=== PATIENT | female | born 1940 | race Caucasian/White ===

== ENCOUNTER → 2017-06-28 | Outpatient (CLI) | payer MEDICARE ==
[2017-06-28 11:48] LABS: HCT 38.6 % (34.0-46.0); MCH 29.7 pg (25.0-35.0); MCHC 33.7 g/dL (31.0-37.0); Mean Platelet Volume 7.2; Platelet Count 268 k/uL (150-450); RBC 4.38 m/uL (3.80-5.40); RDW 13.2 % (11.5-15.5); WBC 6.5 k/uL (3.8-10.6)
[2017-06-28 11:57] LABS: Anion Gap 11 mmol/L; Blood Urea Nitrogen 16 mg/dL (7-17); Carbon Dioxide 29 mmol/L (22-30); Chloride 94 mmol/L (98-107); Glucose 100 mg/dL (74-99); Potassium 3.9 mmol/L (3.5-5.1); Sodium 134 mmol/L (137-145)
[2017-06-28 12:29] LABS: INR 1.1 (<1.2); Partial Thromboplastin Time 22.3 sec (22.0-30.0); Prothrombin Time 10.3 sec (9.0-12.0)
== END ==
LOC: LABWHC1 11:10
PROVIDERS: ATTEND Physician Assistant
DX: I65.23 Occlusion and stenosis of bilateral carotid arteries (principal)
CPT/HCPCS: 36415; 80048; 85027; 85610; 85730

== ENCOUNTER 2017-07-09 08:51 | Emergency (ER) | payer MEDICARE ==
[2017-07-09 09:23] LABS: Amorphous Sediment,Urine Occasional /hpf; Appearance,Urine Cloudy (Clear); Bacteria,Urine Rare /hpf; Bilirubin,Urine Negative (Negative); Blood,Urine Negative (Negative); Color,Urine Yellow; Glucose,Urine (UA) Negative (Negative); Hyaline Casts,Urine 3 /lpf (0-2); Ketones,Urine Negative (Negative); Leukocyte Esterase,Urine Large (Negative); Mucus,Urine Rare /hpf; Nitrite,Urine Negative (Negative); PH, Urine 6.5 (5.0-8.0); Protein,Urine 1+ (Negative); RBC,Urine 1 /hpf (0-5); Specific Gravity,Urine 1.017 (1.001-1.035); Squamous Epithelial Cell,Urine 17 /hpf (0-4); WBC,Urine 140 /hpf (0-5)
[2017-07-09] MEDS ORDERED: SODIUM CHLORIDE 0.9% 1,000 ML IV STA ×2 (09:32)
--- NOTE | 2017-07-09 09:34 | ED ---
Abdominal Pain HPI - General Chief Complaint: Abdominal Pain Stated Complaint: Flank pain Time Seen by Provider: 07/09/17 09:19 Source: patient, RN notes reviewed, old records reviewed Mode of arrival: ambulatory Limitations: no limitations - History of Present Illness Initial Comments: 77-year-old female presents to complain of right-sided flank pain 2 days ago. She states that she had a angiogram in [facility] by Dr. Enriquez last Saturday. She reports bruising to groin. When she called the vascular surgeons in [place], whom encouraged her to come to the emergency department for further evaluation lab testing and CT scan. Patient reports that she has noticed no blood in her urine. She states it has been slightly dark darker however. Denies any fever or chills. This time she states she has no pain, but it will occasionally flare up. Denies any nausea or vomiting, she reports normal bowel movements. - Related Data Home Medications Medication Instructions Recorded Confirmed Aspirin 325 mg PO DAILY 08/16/14 07/09/17 Hydrochlorothiazide [Hydrodiuril] 12.5 mg PO DAILY 08/16/14 07/09/17 Levothyroxine Sodium [Synthroid] 25 mcg PO DAILY 08/16/14 07/09/17 Metoprolol Tartrate [Lopressor] 25 mg PO BID 08/16/14 07/09/17 amLODIPine [Norvasc] 5 mg PO DAILY 08/16/14 07/09/17 Atorvastatin [Lipitor] 10 mg PO HS 07/09/17 07/09/17 Clopidogrel [Plavix] 75 mg PO DAILY 07/09/17 07/09/17 Allergies Allergy/AdvReac Type Severity Reaction Status Date / Time Environmental-mold,dustmites,pollen Allergy sinus Uncoded 07/09/17 09:02 symptoms Review of Systems ROS Statement: Those systems with pertinent positive or pertinent negative responses have been documented in the HPI. ROS Other: All systems not noted in ROS Statement are negative. Past Medical History Past Medical History: Hyperlipidemia, Hypertension, Thyroid Disorder Additional Past Medical History / Comment(s): CHOL.-DIET CONTROLLED History of Any Multi-Drug Resistant Organisms: None Reported Past Surgical History: Orthopedic Surgery Additional Past Surgical History / Comment(s): LT CAROTID ENDARTERECTOMY, LT SHOULDER SURGERY, LT ANKLE SURGERY WITH PLATE & SCREWS IN,COLONOSCOPY, ANGIOGRAM Past Anesthesia/Blood Transfusion Reactions: No Reported Reaction Past Psychological History: No Psychological Hx Reported Smoking Status: Former smoker Past Alcohol Use History: None Reported Past Drug Use History: None Reported - Past Family History Mother Family Medical History: No Reported History General Exam - General Exam Comments Initial Comments: This is a pleasant 77-year-old female. She is here with her son. Patient does not appear to be in any acute distress. Limitations: no limitations General appearance: alert, in no apparent distress Head exam: Present: atraumatic, normocephalic, normal inspection Eye exam: Present: normal appearance, PERRL, EOMI. Absent: scleral icterus, conjunctival injection, periorbital swelling ENT exam: Present: normal exam, mucous membranes moist Neck exam: Present: normal inspection. Absent: tenderness, meningismus, lymphadenopathy Respiratory exam: Present: normal lung sounds bilaterally. Absent: respiratory distress, wheezes, rales, rhonchi, stridor Cardiovascular Exam: Present: regular rate, normal rhythm, normal heart sounds. Absent: systolic murmur, diastolic murmur, rubs, gallop, clicks GI/Abdominal exam: Present: soft, normal bowel sounds, other (pubic hematoma extednign to RLQ. ). Absent: distended, tenderness, guarding, rebound, rigid Extremities exam: Present: normal inspection, full ROM, normal capillary refill. Absent: tenderness, pedal edema, joint swelling, calf tenderness Back exam: Present: normal inspection, CVA tenderness (R) Neurological exam: Present: alert, oriented X3, CN II-XII intact Psychiatric exam: Present: normal affect, normal mood Skin exam: Present: warm, dry, intact, normal color. Absent: rash Course Vital Signs 07/09/17 07/09/17 07/09/17 09:00 10:57 13:02 Temperature 98.7 F Pulse Rate 82 79 78 Respiratory 18 18 18 Rate Blood Pressure 133/58 125/58 135/62 O2 Sat by Pulse 96 99 95 Oximetry - Reevaluation(s) Reevaluation #1: 07/09/17 12:[address] Isbell on-call mass with surgeon. He recommends transferred to [facility] and platelet patient had her recent angiogram completed. Reevaluation #2: 07/09/17 12:42 At this time I spoke to Dr. Ankit Duncan clinically. He is talked to patient' s vascular surgeon to accept transfer. Reevaluation #3: 07/09/17 13:30 I did discuss this with Dr. Murillo the on-call vascular surgeon. She accepts the transfer. She did relate that Dr. Day did not perform the angiogram. A massive and another physician from their group. I discussed this with the patient and she reports that Dr. Ellison did do the surgery. I then discussed this with Dr. Ankit Warner from [facility] ER. He will accept the transfer. Medical Decision Making - Medical Decision Making This patient is a 7-year-old female with a recent angiogram last Saturday presents with right flank pain. Patient reports the symptoms started 2 days ago. The pain seems to be intermittent. Patient has no fever or chills. Patient is given IV fluids and lab work obtained. She does have a significant hematoma over the right groin region. She does have some right CVA tenderness as well. Patient urinalysis is positive for infection with over 100 white blood cells. Many bacteria. We will do urine culture. She was given Rocephin in the emergency department. I did complete a CT abdomen and pelvis. Initially concerned for pyelonephritis and there was an abnormal finding of the right groin hematoma and right pelvic retroperitoneal spread of the hematoma related to the recent angiogram. Discussed this with Dr. Maldonado. Recommends transfer. We also discussed this Dr. Isbell and he would like her transferred to her original facility. I discussed with Dr. Warner and Dr. Murillo from [facility]. They will accept the transfer. Patient will be admitted to medical floor vascular consult. - Lab Data Result diagrams: 07/09/17 09:18 07/09/17 09:18 Lab Results 07/09/17 07/09/17 07/09/17 Range/Units 09:07 09:18 09:18 WBC 7.5 (3.8-10.6) k/uL RBC 3.87 (3.80-5.40) m/uL Hgb 11.8 (11.4-16.0) gm/dL Hct 33.6 L (34.0-46.0) % MCV 86.6 (80.0-100.0) fL MCH 30.4 (25.0-35.0) pg MCHC 35.1 (31.0-37.0) g/dL RDW 13.5 (11.5-15.5) % Plt Count 321 (150-450) k/uL Neutrophils % 72 % Lymphocytes % 13 % Monocytes % 12 % Eosinophils % 1 % Basophils % 0 % Neutrophils # 5.4 (1.3-7.7) k/uL Lymphocytes # 1.0 (1.0-4.8) k/uL Monocytes # 0.9 (0-1.0) k/uL Eosinophils # 0.1 (0-0.7) k/uL Basophils # 0.0 (0-0.2) k/uL Sodium 133 L (137-145) mmol/L Potassium 3.4 L (3.5-5.1) mmol/L Chloride 91 L (98-107) mmol/L Carbon Dioxide 30 (22-30) mmol/L Anion Gap 12 mmol/L BUN 7 (7-17) mg/dL Creatinine 0.49 L (0.52-1.04) mg/dL Est GFR (CKD-EPI)AfAm >90 (>60 ml/min/1.73 sqM) Est GFR (CKD-EPI)NonAf >90 (>60 ml/min/1.73 sqM) Glucose 120 H (74-99) mg/dL Calcium 10.1 (8.4-10.2) mg/dL Total Bilirubin 2.0 H (0.2-1.3) mg/dL AST 28 (14-36) U/L ALT 22 (9-52) U/L Alkaline Phosphatase 69 (38-126) U/L Total Protein 7.0 (6.3-8.2) g/dL Albumin 4.5 (3.5-5.0) g/dL Amylase 93 (30-110) U/L Lipase 97 (23-300) U/L Urine Color Yellow Urine Appearance Cloudy H (Clear) Urine pH 6.5 (5.0-8.0) Ur Specific Mccool 1.017 (1.001-1.035) Urine Protein 1+ H (Negative) Urine Glucose (UA) Negative (Negative) Urine Ketones Negative (Negative) Urine Blood Negative (Negative) Urine Nitrite Negative (Negative) Urine Bilirubin Negative (Negative) Urine Urobilinogen 3.0 (<2.0) mg/dL Ur Leukocyte Esterase Large H (Negative) Urine RBC 1 (0-5) /hpf Urine WBC 140 H (0-5) /hpf Ur Squamous Epith Cells 17 H (0-4) /hpf Amorphous Sediment Occasional H (None) /hpf Urine Bacteria Rare H (None) /hpf Hyaline Casts 3 H (0-2) /lpf Urine Mucus Rare H (None) /hpf - Radiology Data Radiology results: report reviewed CT shows right groin hematoma and right pelvic retroperitoneal spread of the hematoma presumed related to recent angiogram with a right groin access one week ago. No renal stones or hydronephrosis present bilaterally. Disposition Clinical Impression: UTI (urinary tract infection), History of femoral angiogram, Retroperitoneal hematoma Disposition: DC/TRNS INTERMEDIATE CARE FAC Referrals: Srinivas Villalta DO [Primary Care Provider] - 1-2 days Time of Disposition: 13:34 - Out of Hospital Transfer - Req. Specs Out of Hospital Transfer - Requested Specifics: Other Emergency Center ([facility])
[2017-07-09 09:53] LABS: Basophils % (A) 0 %; Eosinophils # (A) 0.1 k/uL (0-0.7); Eosinophils % (A) 1 %; HCT 33.6 % (34.0-46.0); HGB 11.8 gm/dL (11.4-16.0); Lymphocytes % (A) 13 %; MCH 30.4 pg (25.0-35.0); MCHC 35.1 g/dL (31.0-37.0); MCV 86.6 fL (80.0-100.0); Mean Platelet Volume 7.5; Monocytes # (A) 0.9 k/uL (0-1.0); Monocytes % (A) 12 %; Neutrophils # (A) 5.4 k/uL (1.3-7.7); Neutrophils % (A) 72 %; Platelet Count 321 k/uL (150-450); RBC 3.87 m/uL (3.80-5.40); RDW 13.5 % (11.5-15.5); WBC 7.5 k/uL (3.8-10.6)
--- NOTE | 2017-07-09 09:56 | XR ---
EXAMINATION TYPE: XR KUB DATE OF EXAM: 07/09/2017 9:52 AM CLINICAL HISTORY: Right upper quadrant and back pain TECHNIQUE: Single supine KUB image of the abdomen is obtained. COMPARISON: None. FINDINGS: Moderate multilevel degenerative changes of the visualized thoracolumbar spine are seen wit h mild to moderate degenerative changes of the femoral acetabular joints. Scattered gas is seen in no n-distended small bowel loops. Gas and fecal material is seen in non-distended colon. Dystrophic ossi fication within the left hemipelvis likely relates to a calcified uterine fibroid. No evidence of pne umoperitoneum. The lung bases are clear. Right common iliac vascular stent and extensive calcific ath eromatous changes of the femoral arteries are essentially noted. 2 punctate (1 to 2 mm) right and a s patrick punctate left calcific densities are seen overlying the renal shadows. IMPRESSION: 1. Nonobstructive bowel gas pattern. 2. Punctate faint calcific densities overlying the renal shadows likely representing nephrolithiasis.
[2017-07-09 10:09] LABS: ALT 22 U/L (9-52); AST 28 U/L (14-36); Albumin 4.5 g/dL (3.5-5.0); Alkaline Phosphatase 69 U/L (38-126); Amylase 93 U/L (30-110); Anion Gap 12 mmol/L; Blood Urea Nitrogen 7 mg/dL (7-17); Calcium 10.1 mg/dL (8.4-10.2); Carbon Dioxide 30 mmol/L (22-30); Chloride 91 mmol/L (98-107); Glucose 120 mg/dL (74-99); Lipase 97 U/L (23-300); Potassium 3.4 mmol/L (3.5-5.1); Sodium 133 mmol/L (137-145)
[2017-07-09] MEDS ORDERED: cefTRIAXone IN SWFI 1,000 MG/10 ML SYRINGE IVP STA (10:42)
[2017-07-09] MEDS ORDERED: RX INFO: IV CONTRAST WAS GIVEN 1 EACH MISC MISCELLANE PRN (10:57)
--- NOTE | 2017-07-09 12:08 | CT ---
EXAMINATION TYPE: CT abdomen pelvis w con DATE OF EXAM: 07/09/2017 HISTORY: Right sided flank pain. Post Angio study [address] DLP: 364.7mGycm Automated Exposure Control for Dose Reduction was Utilized. CONTRAST: CT scan of the abdomen and pelvis is performed without oral and with IV Contrast, patient injected wi th 100 mL of Omnipaque 300. COMPARISON: None. FINDINGS: LUNG BASES: Central linear scar and/or atelectasis in both bases. Moderate calcification at level of mitral valve leaflets is present. LIVER/GB: No significant abnormality is appreciated. PANCREAS: No significant abnormality is seen. SPLEEN: Numerous calcifications throughout the spleen are present product of old granulomatous diseas e. ADRENALS: No significant abnormality is seen. KIDNEYS: Symmetric cortical medullary uptake and excretion is seen without concerning renal mass or h ydronephrosis. There are extrarenal pelvises bilaterally. BOWEL: Evaluation of bowel is suboptimal secondary to lack of enteric contrast. There is no suspiciou s small or large bowel dilatation. There are diverticula throughout the colon most prominent at level of sigmoid colon. There is no convincing CT evidence for acute diverticulitis. UTERUS/ADNEXA: There is heterogeneous lobulated calcified uterus suggesting underlying fibroids. LYMPH NODES: No greater than 1cm abdominal or pelvic lymph nodes are appreciated. OSSEOUS STRUCTURES: There is moderate to severe disc space narrowing and spurring L2-L3, L4-L5, and L 5-S1 levels. Moderate joint space loss in both hips is present. Other: There is moderate to severe atherosclerotic change of aorta extending into iliac branch vessel s. There is ill-defined fluid or hematoma right groin region seen best axial image 61 with intrapelvic e xtension noted along anterolateral aspect of the right external iliac artery causing slight medial di splacement of adjacent cecum consistent with retroperitoneal splenic broad of hematoma presumed relat ed to recent angiogram. IMPRESSION: There is right groin hematoma and right pelvic retroperitoneal spread of hematoma presume d related to recent angiogram with right groin access one week ago. No renal stones or hydronephrosis is present bilaterally
[2017-07-09 14:05] VITALS: PULSE 86; RESP 15; TEMP 98.5
[2017-07-09 14:19] VITALS: BP 142/75
== END 2017-07-09 14:20 ==
LOC: EC 08:51
DX: N39.0 Urinary tract infection, site not specified (principal); K66.1 Hemoperitoneum; E78.5 Hyperlipidemia, unspecified; I10 Essential (primary) hypertension; E07.9 Disorder of thyroid, unspecified; Z87.891 Personal history of nicotine dependence; Z79.82 Long term (current) use of aspirin; Z79.02 Long term (current) use of antithrombotics/antiplatelets; Z79.899 Other long term (current) drug therapy; Z91.048 Other nonmedicinal substance allergy status
CPT/HCPCS: 36415; 80053; 82150; 83690; 85025; 81001; 87086; 74018; 74177; 99285; 96374; 96361 ×4; J0696; Q9967

== ENCOUNTER → 2017-08-05 | Outpatient (CLI) | payer MEDICARE ==
[2017-08-05 12:43] LABS: HCT 37.1 % (34.0-46.0); HGB 13.2 gm/dL (11.4-16.0); MCHC 35.6 g/dL (31.0-37.0); MCV 87.1 fL (80.0-100.0); Mean Platelet Volume 6.6; Platelet Count 251 k/uL (150-450); RBC 4.26 m/uL (3.80-5.40); RDW 13.6 % (11.5-15.5); WBC 5.2 k/uL (3.8-10.6)
--- NOTE | 2017-08-05 12:50 | XR ---
EXAMINATION TYPE: XR chest 2V DATE OF EXAM: 08/05/2017 COMPARISON: None HISTORY: 77-year-old female preoperative evaluation TECHNIQUE: Frontal and lateral views FINDINGS: Heart is of normal in size. Mild diffuse interstitial prominence and hyperinflation. Some strandy ate lectasis or scarring in the lower lungs. No consolidation or pleural effusion. Partially visualized l eft total shoulder arthroplasty. Chronic healed right-sided rib fracture deformities. IMPRESSION: COPD and chronic appearing parenchymal changes. No acute process seen.
[2017-08-05 12:51] LABS: ALT 25 U/L (9-52); AST 30 U/L (14-36); Albumin 4.7 g/dL (3.5-5.0); Alkaline Phosphatase 86 U/L (38-126); Anion Gap 14 mmol/L; Blood Urea Nitrogen 10 mg/dL (7-17); Calcium 10.3 mg/dL (8.4-10.2); Carbon Dioxide 27 mmol/L (22-30); Chloride 96 mmol/L (98-107); Glucose 105 mg/dL (74-99); Potassium 3.6 mmol/L (3.5-5.1); Sodium 137 mmol/L (137-145); Total Bilirubin 1.1 mg/dL (0.2-1.3); Total Protein 7.4 g/dL (6.3-8.2)
[2017-08-05 12:52] LABS: Partial Thromboplastin Time 22.1 sec (22.0-30.0); Prothrombin Time 10.2 sec (9.0-12.0)
[2017-08-05 13:06] LABS: Appearance,Urine Clear (Clear); Bilirubin,Urine Negative (Negative); Blood,Urine Negative (Negative); Color,Urine Light Yellow; Glucose,Urine (UA) Negative (Negative); Ketones,Urine Negative (Negative); Leukocyte Esterase,Urine Negative (Negative); Nitrite,Urine Negative (Negative); Protein,Urine Negative (Negative); Specific Gravity,Urine 1.005 (1.001-1.035); Urobilinogen,Urine <2.0 mg/dL (<2.0)
[2017-08-05 16:17] LABS: Eosinophils # (M) 0.21 k/uL (0-0.7); Lymphocytes # (M) 1.46 k/uL (1.0-4.8); Monocytes # (M) 0.31 k/uL (0-1.0); Neutrophils # (M) 3.22 k/uL (1.3-7.7); Neutrophils % (M) 62 %; Nucleated Red Blood Cells 0 /100 WBC (0-0); Total Cells Counted 100
== END | disposition home or self-care (01) ==
LOC: LABWHC1 12:12
PROVIDERS: ATTEND Surgery Vascular Surgery
DX: Z01.818 Encounter for other preprocedural examination (principal); I65.23 Occlusion and stenosis of bilateral carotid arteries; J44.9 Chronic obstructive pulmonary disease, unspecified; Z79.01 Long term (current) use of anticoagulants; Z01.812 Encounter for preprocedural laboratory examination
CPT/HCPCS: 36415; 71046; 80053; 81003; 85027; 85610; 85730; 87086

== ENCOUNTER → 2019-09-16 | Outpatient (CLI) | payer MEDICARE | END | disposition home or self-care (01) | LOC: LABWHC1 08:02 | PROVIDERS: ATTEND Otolaryngology | DX: J30.89 Other allergic rhinitis (principal) | CPT/HCPCS: 36415 ==

== ENCOUNTER → 2019-10-21 | Outpatient (CLI) | payer MEDICARE ==
--- NOTE | 2019-10-21 15:44 | ECHOF ---
Referral Reason:R07.89 Atypical Chest pain MEASUREMENTS -------- HEIGHT: 149.9 cm WEIGHT: 43.5 kg BP: IVSd: 1.4 cm (0.6 - 1.1) LVIDd: 3.2 cm (3.9 - 5.3) LVPWd: 1.2 cm (0.6 - 1.1) IVSs: 1.6 cm LVIDs: 2.1 cm LVPWs: 1.5 cm LAESV Index (A-L): 48.12 ml/m Ao Diam: 2.6 cm (2.0 - 3.7) AV Cusp: 1.2 cm (1.5 - 2.6) MV EXCURSION: 10.595 mm (> 18.000) MV EF SLOPE: 56 mm/s (70 - 150) EPSS: 0.4 cm MV E Raheem: 0.97 m/s MV DecT: 331 ms MV A Raheem: 1.03 m/s MV E/A Ratio: 0.94 RAP: 5.00 mmHg RVSP: 33.87 mmHg FINDINGS -------- Sinus rhythm. This was a technically adequate study. The left ventricular size is normal. There is moderate concentric left ventricular hypertrophy. O verall left ventricular systolic function is normal with, an EF between 55 - 60 %. Left ventricular fillimg pressure cannot be estimated due to severe mitral annular calcification. The right ventricle is normal in size. LA is severely dilated >40 ml/m2 The right atrial size is normal. Interatrial and interventricular septum intact. The aortic valve is trileaflet and appears structurally normal. There is mild to moderate aortic va lve sclerosis. There is no evidence of aortic regurgitation. There is no evidence of aortic steno sis. Severe mitral annular calcification present. Moderate mitral regurgitation is present. Mild tricuspid regurgitation present. There is borderline pulmonary artery hypertension. The righ t ventricular systolic pressure, as measured by Doppler, is 33.87mmHg. There is no pulmonic regurgitation present. The aortic root size is normal. Normal inferior vena cava with normal inspiratory collapse consistent with estimated right atrial pre ssure of 5 mmHg. There is no pericardial effusion. CONCLUSIONS -------- 1. Sinus rhythm. 2. This was a technically adequate study. 3. The left ventricular size is normal. 4. There is moderate concentric left ventricular hypertrophy. 5. Overall left ventricular systolic function is normal with, an EF between 55 - 60 %. 6. Left ventricular fillimg pressure cannot be estimated due to severe mitral annular calcification. 7. The right ventricle is normal in size. 8. LA is severely dilated >40 ml/m2 9. The right atrial size is normal. 10. Interatrial and interventricular septum intact. 11. The aortic valve is trileaflet and appears structurally normal. 12. There is mild to moderate aortic valve sclerosis. 13. There is no evidence of aortic regurgitation. 14. There is no evidence of aortic stenosis. 15. Severe mitral annular calcification present. 16. Moderate mitral regurgitation is present. 17. Mild tricuspid regurgitation present. 18. There is borderline pulmonary artery hypertension. 19. The right ventricular systolic pressure, as measured by Doppler, is 33.87mmHg. 20. There is no pulmonic regurgitation present. 21. The aortic root size is normal. 22. Normal inferior vena cava with normal inspiratory collapse consistent with estimated right atrial pressure of 5 mmHg. 23. There is no pericardial effusion. SUPERVISOR IN CHARGE: Cat Martinez RDCS
== END | disposition home or self-care (01) ==
LOC: RADECHMAIN 11:19
PROVIDERS: ATTEND Family Medicine
DX: I08.1 Rheumatic disorders of both mitral and tricuspid valves (principal); I27.21 Secondary pulmonary arterial hypertension
CPT/HCPCS: 93306

== ENCOUNTER 2019-12-03 09:13 | Day surgery (SDC) | payer MEDICARE ==
[~2019-12-03 09:13] MED LIST: LACTATED RINGERS 1,000 ML IV SCH; ONDANSETRON 4 MG/2 ML VIAL IVP PRN
[2019-12-03 09:32] VITALS: TEMP 97.2
[2019-12-03] MEDS ORDERED: LIDOCAINE 1% (10MG/ML) FOR IV START INTRADERMA ONE (09:34)
[2019-12-03] MEDS ORDERED: PROPOFOL 10 MG/ML 20 ML VIAL IV ONE (10:26)
--- NOTE | 2019-12-03 11:09 | P.PCN ---
Date of Procedure: 12/03/19 Description of Procedure: BRIEF HISTORY: Patient is a 79-year-old female presenting for outpatient colonoscopy for evaluation of change in bowel habits. Patient reports new onset constipation. She denied any weight loss. Bowel movements would be every 2-3 days without MiraLAX. PROCEDURE PERFORMED: Colonoscopy. PREOPERATIVE DIAGNOSIS: change in bowel habits, last colonoscopy 7 years ago significant for polypectomy. ESTIMATED BLOOD LOSS: Minimal. IV sedation per Anesthesia. PROCEDURE: After informed consent was obtained, the patient, was brought into the endoscopy unit. IV sedation was administered by Anesthesia under continuous monitoring. Digital rectal examination was normal. Initially the Olympus CF-190 flexible video colonoscope was then inserted in the rectum, gradually advanced into the cecum without any difficulty. Careful examination was performed as the scope was gradually being withdrawn. Ileocecal valve and the appendiceal orifice were visualized and appeared normal. Prep was excellent. Mucosa of the cecum, ascending colon, transverse colon, descending colon, sigmoid colon, and rectum appeared normal. multiple small and large mouth diverticula noted throughout the colon. Retroflexion was performed in the rectum and no lesions were seen, low- grade internal hemorrhoids. The patient tolerated the procedure well. IMPRESSION: Moderate pandiverticulosis. Otherwise, normal-appearing colon from rectum to cecum . RECOMMENDATIONS: Findings of this examination were discussed with the patient in her family. Okay to resume diet. Okay to resume medications. Continue fiber supplementation. Follow-up in gastroenterology clinic as scheduled.
[2019-12-03 11:12] VITALS: RESP 16
[2019-12-03 11:31] VITALS: BP 138/74; PULSE 62
== END 2019-12-03 11:48 | disposition home or self-care (01) ==
LOC: ORWHC2ENDO 09:13
PROVIDERS: ATTEND Internal Medicine
DX: K57.30 Diverticulosis of large intestine without perforation or abscess without bleeding (principal); I10 Essential (primary) hypertension; E78.5 Hyperlipidemia, unspecified; K21.9 Gastro-esophageal reflux disease without esophagitis; Z91.09 Other allergy status, other than to drugs and biological substances; Z79.82 Long term (current) use of aspirin; Z79.890 Hormone replacement therapy; Z79.899 Other long term (current) drug therapy; Z98.890 Other specified postprocedural states; Z87.891 Personal history of nicotine dependence
CPT/HCPCS: 45378; J2704

== ENCOUNTER → 2019-12-31 | Day surgery (SDC) | payer MEDICARE ==
[2019-12-30 09:04] VITALS: BMI 19.1
[~2019-12-31] MED LIST changes: +LIDOCAINE 1% (10MG/ML) FOR IV START INTRADERMA ONE; +LIDOCAINE 1% INJ 10MG/ML (20 ML MDV) ONE; -ONDANSETRON 4 MG/2 ML VIAL IVP PRN; +PROPOFOL 10 MG/ML 20 ML VIAL IV ONE
[2019-12-31 10:10] VITALS: TEMP 97.7
--- NOTE | 2019-12-31 11:24 | P.PCN ---
Date of Procedure: 12/31/19 Description of Procedure: BRIEF HISTORY: Patient is a 79-year-old female presenting for outpatient EGD for evaluation of epigastric pain. Patient had reported persistent epigastric abdominal pain as well as bloating with associated altered bowel function. She did undergo colonoscopy for evaluation. PROCEDURE PERFORMED: Esophagogastroduodenoscopy with biopsy. PREOPERATIVE DIAGNOSIS: Epigastric abdominal pain. ESTIMATED BLOOD LOSS: Minimal. IV sedation per anesthesia. PROCEDURE: After informed consent was obtained, the patient was brought into the endoscopy unit. IV sedation was administered by Anesthesia under continuous monitoring. Initially the Olympus GIF-190 video endoscope was inserted into the mouth. Esophagus intubated without any difficulty. It was gradually advanced into the stomach and duodenum and carefully examined. The bulb and the second part of the duodenum appeared normal, with biopsies taken. The scope at this time was withdrawn to the stomach, adequately insufflated with air, and upon careful examination, mucosa of the antrum, body, cardia and the fundus appeared normal, except for some mild scattered erythema in the antrum and body suggestive of mild gastritis with biopsies taken. The scope was then withdrawn into the esophagus. The GE junction was located at 37 cm from the incisors, with a 3 cm hiatal hernia noted. Biopsies of the GE junction taken. The esophagus appeared normal. There were no erosions or ulcerations seen and the patient tolerated the procedure well. IMPRESSION: 1. Mild gastritis. 2. 3 cm hiatal hernia. 3. Biopsies of the duodenum, antrum body and GE junction. RECOMMENDATIONS: The findings of this examination were discussed with the patient and her daughter. Okay to resume diet. Okay to resume medications. Continue PPI therapy. Follow up in GI clinic as previously scheduled.
[2019-12-31 12:10] VITALS: BP 137/78; PULSE 69; RESP 20
== END ==
LOC: ORWHC2ENDO 09:37
PROVIDERS: ATTEND Internal Medicine
DX: K29.50 Unspecified chronic gastritis without bleeding (principal); K31.89 Other diseases of stomach and duodenum; K22.8 Other specified diseases of esophagus; K44.9 Diaphragmatic hernia without obstruction or gangrene; I10 Essential (primary) hypertension; E78.5 Hyperlipidemia, unspecified; E07.9 Disorder of thyroid, unspecified; K21.9 Gastro-esophageal reflux disease without esophagitis; Z87.891 Personal history of nicotine dependence; Z91.09 Other allergy status, other than to drugs and biological substances; Z79.899 Other long term (current) drug therapy; Z79.890 Hormone replacement therapy; Z79.82 Long term (current) use of aspirin; Z98.890 Other specified postprocedural states
CPT/HCPCS: 88305; 43239; J2001; J2704

== ENCOUNTER → 2020-03-31 | Outpatient (CLI) | payer MEDICARE | END | disposition home or self-care (01) | LOC: LABWHC1 10:18 | PROVIDERS: ATTEND Surgery | DX: Z20.828 Contact with and (suspected) exposure to other viral communicable diseases (principal) | CPT/HCPCS: U0003; C9803 ==

== ENCOUNTER 2020-04-07 06:12 | Day surgery (SDC) | payer MEDICARE ==
[2020-04-05 09:56] VITALS: BMI 18.8
[~2020-04-07 06:12] MED LIST changes: +DEXAMETHASONE SOD PHOSPHATE 4 MG/ML 1 ML VIAL IV ONE; +HEPARIN SODIUM,PORCINE 5,000 UNIT/ML 1 ML VIAL SQ PRN; -LIDOCAINE 1% (10MG/ML) FOR IV START INTRADERMA ONE; +LIDOCAINE 1% (10MG/ML) FOR IV START INTRADERMA PRN; -LIDOCAINE 1% INJ 10MG/ML (20 ML MDV) ONE; +MIDAZOLAM 2 MG/2 ML VIAL IV PRN; +ONDANSETRON 4 MG/2 ML VIAL IVP ONE; -PROPOFOL 10 MG/ML 20 ML VIAL IV ONE
[2020-04-07 07:18] LABS: Basophils % (A) 0 %; Eosinophils # (A) 0.2 k/uL (0-0.7); Eosinophils % (A) 2 %; HCT 37.6 % (34.0-46.0); HGB 12.7 gm/dL (11.4-16.0); Lymphocytes # (A) 0.9 k/uL (1.0-4.8); Lymphocytes % (A) 9 %; MCH 29.8 pg (25.0-35.0); MCHC 33.8 g/dL (31.0-37.0); MCV 88.2 fL (80.0-100.0); Mean Platelet Volume 6.8; Monocytes # (A) 0.6 k/uL (0-1.0); Monocytes % (A) 6 %; Neutrophils # (A) 8.1 k/uL (1.3-7.7); Neutrophils % (A) 82 %; Platelet Count 292 k/uL (150-450); RBC 4.27 m/uL (3.80-5.40); RDW 13.7 % (11.5-15.5); WBC 9.9 k/uL (3.8-10.6)
[2020-04-07 07:28] LABS: Potassium 3.7 mmol/L (3.5-5.1)
[2020-04-07] MEDS ORDERED: ROCURONIUM 10 MG/ML (10 ML VIAL) IV ONE (07:30)
[2020-04-07] MEDS ORDERED: LIDOCAINE 1% INJ 10MG/ML (20 ML MDV) ONE (07:30)
[2020-04-07] MEDS ORDERED: PHENYLEPHRINE 10 MG/ML VIAL ONE (07:30)
[2020-04-07] MEDS ORDERED: GLYCOPYRROLATE 0.2 MG/ML 2 ML VIAL ONE (07:30)
[2020-04-07] MEDS ORDERED: SUCCINYLCHOLINE CHLORIDE 100 MG/5 ML SYR IV ONE (07:30)
[2020-04-07] MEDS ORDERED: NEOSTIGMINE 1 MG/ML 10 ML VIAL ONE (07:30)
[2020-04-07] MEDS ORDERED: fentaNYL (PF) 50 MCG/ML 2 ML AMP ONE (07:30)
[2020-04-07] MEDS ORDERED: PROPOFOL 10 MG/ML 20 ML VIAL IV ONE (07:30)
[2020-04-07] MEDS ORDERED: MIDAZOLAM 2 MG/2 ML VIAL ONE (07:30)
[2020-04-07] MEDS ORDERED: BUPIVACAIN-EPI 0.5%-1:200,000 30 ML VIAL SQ ONE ×2 (07:48)
--- NOTE | 2020-04-07 08:34 | P.OP ---
Date of Procedure: 04/07/20 Preoperative Diagnosis: Symptomatic cholelithiasis Postoperative Diagnosis: Symptomatic cholelithiasis Procedure(s) Performed: Robotic cholecystectomy Anesthesia: SHERYL Surgeon: Kya Andrews Pathology: other (Gallbladder and contents) Condition: stable Disposition: same day Indications for Procedure: 79-year-old female presented to the surgical clinic with complaints of epigastric and right upper quadrant pain. On workup, she was found to have gallbladder sludge and small stones. Plan was for robotic cholecystectomy. The patient was excellent the risks, benefits and alternatives to the procedure did provide consent prior to attending the operating suite. Operative Findings: Distended gallbladder, cholelithiasis Description of Procedure: The patient was brought to the operating suite and placed in supine position on the operating table. Sedation was provided by anesthesia and the patient underwent endotracheal intubation. The patient was then prepped and draped in regular sterile fashion. An infraumbilical incision was made and dissection was carried to the fascia. The fascia was incised and an 8 mm trocar was placed. Pneumoperitoneum was achieved. 3 additional 8 mm ports were placed. One was placed in the left lower quadrant and 2 were placed in the right lower quadrant. The patient was then positioned appropriately and the robot was docked. Prior to induction of anesthesia, the patient did have ICG injected. The gallbladder was then grasped and elevated superiorly and the infundibulum was grasped and retracted laterally. ICG view was then used and the anatomy was clearly delineated with the cystic duct and cystic artery clearly visualized. At this point, the cystic duct and cystic artery were skeletonized. 2 clips were placed proximally and the cystic duct one was placed distally and the cystic duct was ligated. 2 clips were placed proximally on the cystic artery one was placed distally and the cystic artery was ligated. At this point cautery was used to dissect the gallbladder from the gallbladder fossa. Hemostasis was maintained during this process. At this point, the robot was undocked and the gallbladder was placed in an Endo Catch bag laparoscopically. The gallbladder was then removed from the abdomen. Hemostasis was continued to be maintained. Irrigation was used in the right upper quadrant and suctioned. The infraumbilical incision site was then closed under direct visualization using an 0 Vicryl suture and Jose-Dakota device. Pneumoperitoneum was then released all ports removed from the abdomen. All skin incisions were closed with 4-0 Vicryl subcuticular suture. The patient was awakened in the operating suite and taken to postanesthesia care unit in stable condition.
[2020-04-07 08:44] VITALS: TEMP 97.6
[2020-04-07 08:47] VITALS: RESP 16
[2020-04-07] MEDS: HYDROmorphone 0.5 MG/0.5 ML SYRINGE IVP PRN ×2 (08:47→09:04)
[2020-04-07] MEDS ORDERED: LACTATED RINGERS 1,000 ML IV ONE ×2 (09:00)
[2020-04-07 09:57] VITALS: BP 112/69
[2020-04-07 10:20] VITALS: PULSE 75
== END 2020-04-07 10:57 | disposition home or self-care (01) ==
LOC: OR 06:12
PROVIDERS: ATTEND Surgery
DX: K80.10 Calculus of gallbladder with chronic cholecystitis without obstruction (principal); I10 Essential (primary) hypertension; E78.5 Hyperlipidemia, unspecified; K21.9 Gastro-esophageal reflux disease without esophagitis; E07.9 Disorder of thyroid, unspecified; Z91.048 Other nonmedicinal substance allergy status; Z79.82 Long term (current) use of aspirin; Z79.890 Hormone replacement therapy; Z79.899 Other long term (current) drug therapy; I25.10 Atherosclerotic heart disease of native coronary artery without angina pectoris; Z82.49 Family history of ischemic heart disease and other diseases of the circulatory system; Z80.3 Family history of malignant neoplasm of breast
CPT/HCPCS: 88304; 80051; 85025; 47563; J2250; J1644; J1100; J2370; J2710; J0690; J2405; J2001; J3010; J0330; J2704; J1170

== ENCOUNTER 2022-03-24 11:23 | Inpatient (IN) | payer MEDICARE ==
[2022-03-24] MEDS ORDERED: LORazepam 2 MG/ML INJ IV STA (11:32)
[2022-03-24] MEDS ORDERED: SODIUM CHLORIDE 0.9% 500 ML 500 ML IV STA (11:34)
--- NOTE | 2022-03-24 11:41 | ED ---
General Adult HPI - General Chief complaint: Neuro Symptoms/Deficit Stated complaint: poss stroke Time Seen by Provider: 03/24/22 11:30 Source: patient, family, RN notes reviewed, old records reviewed Mode of arrival: wheelchair Limitations: no limitations - History of Present Illness Initial comments: This is a 81-year-old female with history of high blood pressure. Patient was on the phone talking with the granddaughter just before 10:00 today when the came and started about 11:00 she was unable to speak. It appeared to them that she was moving everything normally and understood some of the things that they were sending but unable to speak at all. Patient has no history of seizures. Family states she was acting normal this morning on the phone. According to family recently there is been no illness that they know of. Patient's unable to give any history - Related Data Home Medications Medication Instructions Recorded Confirmed Aspirin 325 mg PO DAILY 08/16/14 03/24/22 Levothyroxine Sodium [Synthroid] 25 mcg PO DAILY 08/16/14 03/24/22 Metoprolol Tartrate [Lopressor] 25 mg PO BID 08/16/14 03/24/22 amLODIPine [Norvasc] 5 mg PO DAILY 08/16/14 03/24/22 Ezetimibe [Zetia] 10 mg PO DAILY 12/01/19 03/24/22 Omeprazole 20 mg PO DAILY 12/01/19 03/24/22 LORazepam [Ativan] 0.5 mg PO HS PRN 03/24/22 03/24/22 Allergies Allergy/AdvReac Type Severity Reaction Status Date / Time Yeast Allergy Unknown Verified 03/24/22 11:26 Environmental-mold,dustmites,pollen Allergy sinus Uncoded 03/24/22 11:26 symptoms Review of Systems ROS Statement: Those systems with pertinent positive or pertinent negative responses have been documented in the HPI. ROS Other: All systems not noted in ROS Statement are negative. Past Medical History Past Medical History: GERD/Reflux, Hyperlipidemia, Hypertension, Thyroid Disorder Additional Past Medical History / Comment(s): ABD PAIN. LOST APPETITE, EATING CAUSES PAIN. CHOL.-DIET CONTROLLED History of Any Multi-Drug Resistant Organisms: None Reported Past Surgical History: Heart Catheterization With Stent, Orthopedic Surgery Additional Past Surgical History / Comment(s): LT CAROTID ENDARTERECTOMY. LT S HOULDER SURGERY. LT ANKLE SURGERY WITH PLATE & SCREWS IN. COLONOSCOPY, ANGIOGRAM, Stent bilat.legs. Past Anesthesia/Blood Transfusion Reactions: No Reported Reaction Date of Last Stent Placement:: 2004 Past Psychological History: No Psychological Hx Reported Smoking Status: Former smoker - Past Family History Mother Family Medical History: No Reported History General Exam - General Exam Comments Initial Comments: GENERAL: Patient is well-developed and well-nourished. Patient is nontoxic and well- hydrated and is in no acute distress. Patient has expressive the patient ENT: Neck is soft and supple. No significant lymphadenopathy is noted. Oropharynx is clear. Moist mucous membranes. Neck has full range of motion without eliciting any pain. EYES: The sclera were anicteric and conjunctiva were pink and moist. Extraocular movements were intact and pupils were equal round and reactive to light. Eyelids were unremarkable. PULMONARY: Unlabored respirations. Good breath sounds bilaterally. No audible rales rhonchi or wheezing was noted. CARDIOVASCULAR: There is a regular rate and rhythm without any murmurs gallops or rubs. ABDOMEN: Soft and nontender with normal bowel sounds. SKIN: Skin is clear with no lesions or rashes and otherwise unremarkable. NEUROLOGIC: Patient is alert and I was unable to assess orientation because patient was not speaking to me at all. Patient appeared to have expressive aphasia. Cranial nerves II through XII are grossly intact MUSCULOSKELETAL: Patient got out of the wheelchair and uses her hands to get up into the bed it appeared that all 4 extremities have full range of motion and normal strength however I was unable to assess because the patient seized prior to the assessment. PSYCHIATRIC: Unable to assess Limitations: no limitations Course Vital Signs 03/24/22 03/24/22 03/24/22 11:27 12:00 12:15 Temperature 97.6 F Pulse Rate 70 74 72 Respiratory 16 14 18 Rate Blood Pressure 154/73 89/61 113/59 O2 Sat by Pulse 100 100 97 Oximetry 03/24/22 12:30 Temperature Pulse Rate 71 Respiratory 18 Rate Blood Pressure 120/96 O2 Sat by Pulse 98 Oximetry Medical Decision Making - Medical Decision Making CT was somewhat delayed because the patient seized when we got her into bed and she needed Ativan to stop the seizures. Patient remained postictal on her way to CAT scan. Computed tomography scan was interpreted by myself I see no acute bleed. Radiology contacted me at 1157 and confirmed that there was no bleed seen on the CAT scan. Alteplase will not be given at this time because the patient had a seizure and is still postictal so no NIH was done at this time. Patient remains postictal. The risks of giving alteplase outweigh the benefits at this point. I'm still waiting at 12:00 for the neurointerventionalist call since seizure is a relatively exclusionary criteria. EKG is interpreted by me. EKG shows sinus rhythm at a rate of 75 bpm RI interval 174 QRS is 101 Q-T intervals 426 QTC is 455. Patient's EKG show selevation or depression. After the post ictal state patient was able to answer basic questions and knew the names of her granddaughters. This is a significant improvement. Dr. Linder came down and saw the patient in the emergency department and agreed that no alteplase should be given. Patient had an NIH of [address] angiogram of the head and neck showed no significant stenosis in because of patient's symptoms. I spoke to the neurointerventionalist Dr. Dillard and he was in agreement that the patient's risks far outweigh the benefits of alteplase - Lab Data Result diagrams: 03/24/22 11:40 03/24/22 11:40 Lab Results 03/24/22 03/24/22 03/24/22 Range/Units 11:40 11:40 11:40 WBC 9.6 (3.8-10.6) k/uL RBC 4.21 (3.80-5.40) m/uL Hgb 13.4 (11.4-16.0) gm/dL Hct 38.2 (34.0-46.0) % MCV 90.8 (80.0-100.0) fL MCH 31.9 (25.0-35.0) pg MCHC 35.2 (31.0-37.0) g/dL RDW 13.3 (11.5-15.5) % Plt Count 323 (150-450) k/uL MPV 8.3 Neutrophils % 60 % Lymphocytes % 29 % Monocytes % 7 % Eosinophils % 1 % Basophils % 0 % Neutrophils # 5.7 (1.3-7.7) k/uL Lymphocytes # 2.8 (1.0-4.8) k/uL Monocytes # 0.7 (0-1.0) k/uL Eosinophils # 0.1 (0-0.7) k/uL Basophils # 0.0 (0-0.2) k/uL PT 9.7 (9.0-12.0) sec INR 0.9 (<1.2) APTT 22.3 (22.0-30.0) sec Sodium 125 L (137-145) mmol/L Potassium 4.6 (3.5-5.1) mmol/L Chloride 89 L (98-107) mmol/L Carbon Dioxide 20 L (22-30) mmol/L Anion Gap 16 mmol/L BUN 7 (7-17) mg/dL Creatinine 0.48 L (0.52-1.04) mg/dL Est GFR (CKD-EPI)AfAm >90 (>60 ml/min/1.73 sqM) Est GFR (CKD-EPI)NonAf >90 (>60 ml/min/1.73 sqM) Glucose 122 H (74-99) mg/dL POC Glucose (mg/dL) (70-110) mg/dL POC Glu Photography Coordinator ID Calcium 9.5 (8.4-10.2) mg/dL Total Bilirubin 1.2 (0.2-1.3) mg/dL AST 36 (14-36) U/L ALT 23 (4-34) U/L Alkaline Phosphatase 88 (38-126) U/L Troponin I (0.000-0.034) ng/mL Total Protein 7.5 (6.3-8.2) g/dL Albumin 5.0 (3.5-5.0) g/dL 03/24/22 03/24/22 Range/Units 11:40 11:45 WBC (3.8-10.6) k/uL RBC (3.80-5.40) m/uL Hgb (11.4-16.0) gm/dL Hct (34.0-46.0) % MCV (80.0-100.0) fL MCH (25.0-35.0) pg MCHC (31.0-37.0) g/dL RDW (11.5-15.5) % Plt Count (150-450) k/uL MPV Neutrophils % % Lymphocytes % % Monocytes % % Eosinophils % % Basophils % % Neutrophils # (1.3-7.7) k/uL Lymphocytes # (1.0-4.8) k/uL Monocytes # (0-1.0) k/uL Eosinophils # (0-0.7) k/uL Basophils # (0-0.2) k/uL PT (9.0-12.0) sec INR (<1.2) APTT (22.0-30.0) sec Sodium (137-145) mmol/L Potassium (3.5-5.1) mmol/L Chloride (98-107) mmol/L Carbon Dioxide (22-30) mmol/L Anion Gap mmol/L BUN (7-17) mg/dL Creatinine (0.52-1.04) mg/dL Est GFR (CKD-EPI)AfAm (>60 ml/min/1.73 sqM) Est GFR (CKD-EPI)NonAf (>60 ml/min/1.73 sqM) Glucose (74-99) mg/dL POC Glucose (mg/dL) 118 H (70-110) mg/dL POC Glu Photography Coordinator ID Victor Hugo Acele Calcium (8.4-10.2) mg/dL Total Bilirubin (0.2-1.3) mg/dL AST (14-36) U/L ALT (4-34) U/L Alkaline Phosphatase (38-126) U/L Troponin I <0.012 (0.000-0.034) ng/mL Total Protein (6.3-8.2) g/dL Albumin (3.5-5.0) g/dL Disposition Clinical Impression: Hyponatremia, Cerebrovascular accident (CVA), New onset seizure Disposition: ADMITTED IP TO THIS [facility] Instructions (If sedation given, give patient instructions): Seizure/Epilepsy Discharge Instructions & Follow-Up Referrals: Srinivas Villalta DO [Primary Care Provider] - 1-2 days Time of Disposition: 13:11
[2022-03-24 11:46] LABS: Glucose,Whole Blood 118 mg/dL (70-110)
--- NOTE | 2022-03-24 12:00 | CT ---
EXAMINATION TYPE: CT brain wo con for TPA CT DLP: 1104 mGycm, Automated exposure control for dose reduction was used. DATE OF EXAM: 03/24/2022 11:54 AM COMPARISON: 03/24/2022. CLINICAL INDICATION:Female, 81 years old with history of Neuro deficit, acute, stroke suspected, Neur o deficit, Stroke suspected TECHNIQUE: Brain: Axial CT images of the brain were obtained with coronal and sagittal reformats created and rev iewed. Contrast used: None. Oral contrast used: None. FINDINGS: Brain: Extra-axial spaces: No abnormal extra-axial fluid collections. Scattered calcifications along the ten torium. Ventricular system: Within normal limits Cerebral parenchyma: No acute intraparenchymal hemorrhage or mass effect. The guallpa-white junction is well differentiated. Scattered hypoattenuating areas are seen within the white matter. Cerebellum: Unremarkable. Mass effect: No evidence of midline shift. Intracranial vasculature: Atherosclerotic calcifications of the intracranial vessels. Soft tissues: Normal. Calvarium/osseous structures: No depressed skull fracture. Paranasal sinuses and mastoid air cells: Mild scattered paranasal sinus disease. Visualized orbits: Senile calcific scleral plaques are present. Bilateral aphakia Findings communicated to Dr. Jerrell Roberts MD on 03/24/2022 11:[address] Tiago Kaba. IMPRESSION: 1. No acute intracranial process. 2. Nonspecific white matter changes, likely secondary to chronic small vessel ischemic disease.
[2022-03-24 12:12] LABS: ALT 23 U/L (4-34); AST 36 U/L (14-36); African American GFR (CKD) >90 (>60 ml/min/1.73 sqM); Alkaline Phosphatase 88 U/L (38-126); Anion Gap 16 mmol/L; Blood Urea Nitrogen 7 mg/dL (7-17); Calcium 9.5 mg/dL (8.4-10.2); Carbon Dioxide 20 mmol/L (22-30); Chloride 89 mmol/L (98-107); Glucose 122 mg/dL (74-99); Non-African American GFR(CKD) >90 (>60 ml/min/1.73 sqM); Potassium 4.6 mmol/L (3.5-5.1); Sodium 125 mmol/L (137-145); Total Bilirubin 1.2 mg/dL (0.2-1.3); Total Protein 7.5 g/dL (6.3-8.2)
--- NOTE | 2022-03-24 12:22 | XR ---
EXAMINATION TYPE: XR chest 1V portable DATE OF EXAM: 03/24/2022 12:14 PM COMPARISON: Chest radiographs from 08/05/2017 TECHNIQUE: XR chest 1V portable Portable AP radiograph of the chest. CLINICAL INDICATION:Female, 81 years old with history of altered mental status; FINDINGS: Lungs/Pleura: Increased opacities along the left heart border. Additional scattered hazy opacities ar e present. Pulmonary vascularity: Unremarkable. Heart/mediastinum: Cardiomediastinal silhouette is unremarkable. Musculoskeletal: No acute osseous pathology. Left shoulder arthroplasty changes. IMPRESSION: Multifocal airspace opacities most pronounced on the left correlate for pneumonia. Correlate with ser um BNP for component of congestive heart failure.
[2022-03-24 12:23] LABS: Basophils % (A) 0 %; Eosinophils # (A) 0.1 k/uL (0-0.7); Eosinophils % (A) 1 %; HCT 38.2 % (34.0-46.0); HGB 13.4 gm/dL (11.4-16.0); Lymphocytes # (A) 2.8 k/uL (1.0-4.8); Lymphocytes % (A) 29 %; MCH 31.9 pg (25.0-35.0); MCHC 35.2 g/dL (31.0-37.0); MCV 90.8 fL (80.0-100.0); Mean Platelet Volume 8.3; Monocytes # (A) 0.7 k/uL (0-1.0); Monocytes % (A) 7 %; Neutrophils # (A) 5.7 k/uL (1.3-7.7); Neutrophils % (A) 60 %; Platelet Count 323 k/uL (150-450); RBC 4.21 m/uL (3.80-5.40); RDW 13.3 % (11.5-15.5); WBC 9.6 k/uL (3.8-10.6)
[2022-03-24 12:28] LABS: INR 0.9 (<1.2); Partial Thromboplastin Time 22.3 sec (22.0-30.0); Prothrombin Time 9.7 sec (9.0-12.0)
[2022-03-24] MEDS ORDERED: CLOPIDOGREL 75 MG TAB PO STA (12:37)
--- NOTE | 2022-03-24 12:45 | CT ---
EXAMINATION TYPE: CT angio head neck CT DLP: 381.5 mGycm, Automated exposure control for dose reduction was used. DATE OF EXAM: 03/24/2022 12:27 PM COMPARISON: Same day CT head. CLINICAL INDICATION:Female, 81 years old with history of Neuro deficit, acute, stroke suspected; PHH, Neuro deficit TECHNIQUE: Axially acquired helical CT angiogram of the head and neck was obtained with contrast. Axi al images are supplemented with 3D reconstructions [facility] NASCET criteria used. Contrast used:65 mL of Isovue 370 without and with IV Contrast, Oral contrast used: None. FINDINGS: Motion limits evaluation. CTA HEAD: No evidence of acute intracranial hemorrhage, mass effect, or midline shift. The ventricles, sulci, a nd cisterns are unremarkable. The visualized portions of the internal carotid arteries, middle cerebral arteries, anterior cerebral arteries, and posterior cerebral arteries are patent. The basilar and vertebral arteries are patent. The right vertebral artery is dominant. There is ather osclerotic calcification involving the intracranial portion of the left vertebral artery. Bilateral aphakia CTA NECK: Right Carotid System: The common carotid artery and external carotid artery are patent. The right internal carotid artery i s occluded extending from its origin into the intracranial cavernous portion. There is high-grade annabel nosis of the external carotid artery on the left. Left Carotid System: The common carotid artery and external carotid artery are patent. The carotid bifurcation demonstrate s no evidence of hemodynamically significant stenosis. The remaining portions of the internal carotid artery demonstrate normal size without significant narrowing. Evaluation of the origins of the vertebral arteries is limited secondary to shoulder beam hardening, visualized vertebral arteries are patent without evidence hemodynamically significant stenosis. There is a three-vessel aortic arch. The origins of the great vessels are patent. No evidence of hemo dynamically significant stenosis. Atherosclerosis of the arterial vasculature. IMPRESSION: 1. Occluded right internal carotid artery extending from its origin to the cavernous portion with re constitution at the lummi of [place]. 2. The left internal carotid artery is patent. There is intracranial atherosclerosis of the cavernou s portion of the left internal carotid artery without significant stenosis at the carotid bifurcation . 3. No evidence of dissection of the visualized opacified left internal carotid artery or the bilater al vertebral arteries. 4. No evidence of intracranial high-grade stenosis or intracranial aneurysm.
[2022-03-24] MEDS ORDERED: ASPIRIN 325 MG TAB PO STA (13:33)
[2022-03-24] MEDS ORDERED: levETIRAcetam IV 1,000 MG in SALINE 1 100ML.BAG IVPB STA (13:42)
[2022-03-24] MEDS ORDERED: IPRATROPIUM-ALBUTEROL 3 ML NEB INHALATION PRN (20:49)
[2022-03-24] MEDS ORDERED: LORazepam 1 MG TAB PO PRN ×3 (20:51)
[2022-03-24] MEDS ORDERED: THIAMINE 100 MG/ML 2 ML VIAL IM STA (20:51)
[2022-03-24] MEDS ORDERED: LORazepam 0.5 MG TAB PO PRN (20:51)
[2022-03-24] MEDS ORDERED: levETIRAcetam IV 1,000 MG in SALINE 1 100ML.BAG IVPB SCH (21:00)
[2022-03-24] MEDS: guaiFENesin 600 MG TABLET.ER PO SCH (21:48)
[2022-03-24] MEDS: MELATONIN 3 MG TABLET PO PRN (21:48)
--- NOTE | 2022-03-24 22:52 | P.CNNES ---
History of Present Illness Consult date: 03/24/22 Requesting physician: Jerrell Roberts Reason for Consult: CVA History of Present Illness: Patient is a 81-year-old female with history of chronic right ICA occlusion, history of left ICA bypass surgery in the past, hypertension, X tobacco use, who presented to the ER this morning at 11:23 AM, brought by the family members because of acute stroke symptoms. As per patient's granddaughter, who talked to her at 10 AM and was feeling fine. At 11 AM patient developed acute mental status change, when she was not able to speak, and was talking gibberish. She could not answer questions and was having some lip smacking. She was confused, tried to turn lights on and off multiple times for no reason. She was still abl e to walk normally and was not having any weakness of the extremities. Family did not notice any facial droop. She could not put complete sentences. Family got concerned, and patient walked to her car and they brought her to the hospital. Patient had a witnessed grand mal seizure in the ER. She was given Ativan to stop the seizure. CT head revealed no acute process. Code stroke alteplase was called, but she was not a candidate for TPA because of multiple relative contraindications including advanced age, witnessed seizure, and rapidly improving symptoms. By the time I saw patient in the ER, her NIH stroke scale was 1, with right facial droop. ED staff discuss case with neuro intervention, who agreed with no TPA. CT head showed no acute intracranial process. Nonspecific white matter changes, likely secondary to chronic small vessel ischemic disease. I personally reviewed CT head, agree with the findings. EKG showed sinus rhythm with occasional supraventricular premature complexes. Chest x-ray revealed multifocal airspace opacities most pronounced on the left, correlate for pneumonia. Correlate with symptom BNP for component of CHF. Patient's blood test shows normal CBC, PT/PTT, sodium 125 potassium 4.6, normal renal functions. Hepatic panel is normal, troponin negative. [place] virus PCR negative. Patient has smoked 1 pack per day for 30 years, quit 25 years ago. Patient has hypertension but no diabetes. She does take aspirin 81 mg daily. She drinks couple glasses of red wine every night. She did have her wine last night. No previous history of strokes or TIA. Patient does have history of chronic right ICA occlusion, and ICA bypass on the left. Patient is hard of hearing. Review of Systems Constitutional: Denies chills, Denies fever Eyes: denies blurred vision, denies pain Ears: bilateral: decreased hearing, deny: earache Ears, nose, mouth and throat: Denies headache, Denies sore throat Cardiovascular: Denies chest pain, Denies shortness of breath Respiratory: Denies cough Gastrointestinal: Denies abdominal pain, Denies diarrhea, Denies nausea, Denies vomiting Musculoskeletal: Denies myalgias Musculoskeletal: right: shoulder pain Integumentary: Denies pruritus, Denies rash Neurological: Reports as per HPI Psychiatric: Denies anxiety, Denies depression Endocrine: Denies fatigue, Denies weight change Past Medical History Past Medical History: GERD/Reflux, Hyperlipidemia, Hypertension, Thyroid Disorder Additional Past Medical History / Comment(s): ABD PAIN. LOST APPETITE, EATING CAUSES PAIN. CHOL.-DIET CONTROLLED History of Any Multi-Drug Resistant Organisms: None Reported Past Surgical History: Heart Catheterization With Stent, Orthopedic Surgery Additional Past Surgical History / Comment(s): LT CAROTID ENDARTERECTOMY. LT SHOULDER SURGERY. LT ANKLE SURGERY WITH PLATE & SCREWS IN. COLONOSCOPY, ANGIOGRAM, Stent bilat.legs. Past Anesthesia/Blood Transfusion Reactions: No Reported Reaction Date of Last Stent Placement:: 2004 Past Psychological History: No Psychological Hx Reported Smoking Status: Former smoker - Past Family History Mother Family Medical History: No Reported History Medications and Allergies Home Medications Medication Instructions Recorded Confirmed Type Aspirin 325 mg PO DAILY 08/16/14 03/24/22 History Levothyroxine Sodium [Synthroid] 25 mcg PO DAILY 08/16/14 03/24/22 History Metoprolol Tartrate [Lopressor] 25 mg PO BID 08/16/14 03/24/22 History amLODIPine [Norvasc] 5 mg PO DAILY 08/16/14 03/24/22 History Ezetimibe [Zetia] 10 mg PO DAILY 12/01/19 03/24/22 History Omeprazole 20 mg PO DAILY 12/01/19 03/24/22 History LORazepam [Ativan] 0.5 mg PO HS PRN 03/24/22 03/24/22 History hydroCHLOROthiazide 12.5 mg PO DAILY PRN 03/24/22 03/24/22 History Allergies Allergy/AdvReac Type Severity Reaction Status Date / Time Yeast Allergy Unknown Verified 03/24/22 11:26 Environmental-mold,dustmites,pollen Allergy sinus Uncoded 03/24/22 11:26 symptoms Physical Examination - Vital Signs Vital Signs: Vital Signs Temp Pulse Resp BP Pulse Ox 03/24/22 12:00 74 14 89/61 100 03/24/22 11:27 97.6 F 70 16 154/73 100 Intake and Output 03/23/22 03/24/22 03/24/22 22:59 06:59 14:59 Other: Weight 45.359 kg Patient is an elderly female, in no acute distress. Patient is alert awake patient is able to recognize all her family members.. Speech and language functions are normal. Patient can name and repeat very well. Patient is able to read, and describe the picture very well. No aphasia or dysarthria. Attention, concentration and fund of knowledge is limited for age. On cranial nerve examination, pupils are equal, round and reacting to light, visual linares are full on confrontation, with no neglect on double simultaneous depression. Extraocular muscles are intact with no nystagmus. Patient has right facial droop. Her tongue protrudes to the midline. There is no evidence of tongue bite gio. Palatal elevation and sensation normal, hearing is severely decreased bilaterally, uses hearing aids and shoulder shrug normal, facial sensation normal. On muscle strength testing, there is no pronator drift and the strength is normal in arms and legs distally and proximally. Right deltoid is painful, therefore not checked. The patient did not cooperate well for testing of the lower extremities. Her hip flexion has giveaway weakness, but appeared equal. No droop. Ankle dorsiflexion is normal bilaterally. Deep tendon reflexes are symmetric 1+ at the biceps, 1+ brachioradialis, 1 at the knees and plantars downgoing bilaterally. Sensory to touch is equal with no neglect on double simultaneous stimulation. Cerebellar function showed no ataxia for [id number] testing. No dysdiadochokinesia. No ataxia for [id number] testing on either side. Tone and bulk of muscles normal. Gait deferred.. On general examination, there is no carotid bruit or murmur, S1-S2 audible. Chest is clear on consultation. Abdomen is soft nontender. No organomegaly, bowel sounds present. Peripheral pulses are present. No edema. Results - Laboratory Findings CBC and BMP: 03/24/22 11:40 03/24/22 11:40 Abnormal Lab Findings: Abnormal Labs 03/24/22 03/24/22 11:40 11:45 Sodium 125 L Chloride 89 L Carbon Dioxide 20 L Creatinine 0.48 L Glucose 122 H POC Glucose (mg/dL) 118 H Assessment and Plan Assessment: * Possible acute ischemic stroke versus TIA versus postictal state. Patient has presented with significant expressive aphasia. Most of her deficits have resolved, with residual right facial droop, with NIHSS of 1. Patient not a candidate for TPA. * New onset seizure, unclear cause, perhaps related to hyponatremia * History of chronic right ICA occlusion and left carotid endarterectomy. * Hyponatremia * Pretension * X tobacco use * Hard of hearing Plan: * Patient's stroke symptoms have mostly resolved. Her current NIH stroke scale is 1. Patient is not a candidate for TPA, because of relative contraindication of seizure, advanced age and rapidly improving symptoms. * MRI of the brain without contrast, evaluate for acute CVA * 2-D echo with bubble study to rule out PFO * CTA head and neck showed: Occluded right ICA extending from its origin to the cavernous portion with reconstitution at the [place] of [place]. The left ICA is patent. There is intracranial atherosclerosis of the cavernous portion of the left ICA without significant stenosis at the carotid bifurcation. No evidence of dissection. No evidence of intracranial high-grade stenosis or intracranial aneurysm. * Patient was on aspirin 81 mg daily. We will add Plavix. Patient will be loaded with Plavix 150 mg and start 75 mg daily from a.m. Suggest dual antiplatelet medication for 21 days and then stop aspirin and continue Plavix indefinitely. * Fasting a.m. lipid panel cholesterol 237, LDL 118.2, HDL 108 and triglycerides 53. * Hemoglobin A1c 5.5 * EEG evaluate for epileptiform activity. * Seizure possibly related to hyponatremia. We will load with Keppra 1000 mg IV 1 dose followed by Keppra 500 mg twice a day. * If the EEG is negative, may consider tapering off Keppra. * Permissive hypertension for next 24-48 hours * Close neuro checks as per protocol. * Telemetry monitoring rule out any arrhythmia * DVT prophylaxis: Heparin 5000 units subcu every 8 hours * Neurology will continue ot follow. Thank you for the consult.
--- NOTE | 2022-03-25 04:55 | HP ---
HISTORY AND PHYSICAL CHIEF COMPLAINTS: Difficulty in speaking and possible seizures. HISTORY OF PRESENT ILLNESS: This 81-year-old woman with a past medical history of hypertension, hyperlipidemia, being followed by Dr. Villalta in the outpatient setting. Had some change in mental status and some difficulty in speaking as noted per the family members today it lasted for half an hour. Patient taken to [facility]. Stroke code was called, but the patient also had an episode of apparent seizure. Patient admitted for further evaluation and treatment. The patient lives by herself. There is no history of any fever, rigors, chills at this time. PAST MEDICAL HISTORY: Reviewed. Include hypertension, hyperlipidemia. Rest of the history and rest of the chart is also reviewed. HOME MEDICATIONS: Reviewed include omeprazole dose and rest of the medications also reviewed. ALLERGIES: Yeast. FAMILY HISTORY: No history of heart disease or strokes in family. SOCIAL HISTORY: Previous history of smoking. REVIEW OF SYSTEMS: A 14-point review is negative except as mentioned earlier. PHYSICAL EXAMINATION: VITAL SIGNS: Pulse is 67, blood pressure 120/60, respirations 12. HEENT: Conjunctivae normal. NECK: No jugular venous distention. No carotid bruit. CARDIOVASCULAR: ntd RESPIRATIONS: Few scattered rhonchi and crackles. ABDOMEN: Soft, nontender. LEGS: No edema. No cyanosis. Diffusely weak. SKIN: No rashes. JOINTS: No active deforming arthropathy. LABORATORY DATA: Sodium is 125. Rest of the labs are noted. ASSESSMENT: 1. Possible acute transient ischemic attack. 2. Possible seizures. 3. Hyponatremia. 4. Hypertension. 5. Hyperlipidemia. RECOMMENDATIONS AND DISCUSSION: This is an 81-year-old woman who presented with multiple medical issues. At this time, I recommended to continue current medications, neuro checks. Neurology consultation. Complete neurovascular workup. 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 We will consult Vascular Surgery and the CT of the brain showed nonspecific white matter changes. We will also order an EEG per Neurology also. Once her home medications are confirmed, we will add that also. Prognosis guarded. Discussed with the family. Further recommendations to follow. MMODL / IJN: [id number] / MTDD
[2022-03-25] MEDS: LEVOTHYROXINE 25 MCG TAB PO SCH (07:01)
[2022-03-25] MEDS: PANTOPRAZOLE 40 MG TABLET PO SCH (07:01)
[2022-03-25] MEDS ORDERED: THIAMINE 100 MG TAB PO SCH (09:00)
[2022-03-25] MEDS ORDERED: ASPIRIN 325 MG TAB PO SCH (09:00)
[2022-03-25] MEDS: EZETIMIBE 10 MG TAB PO SCH (09:36)
[2022-03-25] MEDS: ASPIRIN 81 MG PO SCH (09:36)
[2022-03-25] MEDS: CLOPIDOGREL 75 MG TAB PO SCH (09:36)
[2022-03-25] MEDS: guaiFENesin 600 MG TABLET.ER PO SCH ×2 (09:36→21:17)
[2022-03-25] MEDS: levETIRAcetam 500 MG TAB PO SCH ×2 (09:36→21:17)
[2022-03-25 10:39] LABS: Basophils % (A) 0 %; Eosinophils % (A) 1 %; HCT 35.9 % (34.0-46.0); HGB 12.2 gm/dL (11.4-16.0); Lymphocytes # (A) 0.4 k/uL (1.0-4.8); Lymphocytes % (A) 10 %; MCH 30.7 pg (25.0-35.0); MCHC 33.9 g/dL (31.0-37.0); MCV 90.7 fL (80.0-100.0); Mean Platelet Volume 7.7; Monocytes # (A) 0.4 k/uL (0-1.0); Monocytes % (A) 9 %; Neutrophils # (A) 3.3 k/uL (1.3-7.7); Neutrophils % (A) 77 %; Platelet Count 258 k/uL (150-450); RBC 3.96 m/uL (3.80-5.40); RDW 13.5 % (11.5-15.5); WBC 4.2 k/uL (3.8-10.6)
[2022-03-25 10:45] LABS: African American GFR (CKD) >90 (>60 ml/min/1.73 sqM); Anion Gap 5 mmol/L; Blood Urea Nitrogen 7 mg/dL (7-17); Carbon Dioxide 29 mmol/L (22-30); Chloride 96 mmol/L (98-107); Glucose 110 mg/dL (74-99); Non-African American GFR(CKD) >90 (>60 ml/min/1.73 sqM); Potassium 3.5 mmol/L (3.5-5.1); Sodium 130 mmol/L (137-145)
[2022-03-25 17:28] LABS: Chol/HDL Ratio 1.96 Ratio; LDL Cholesterol,Calculated 83.9 mg/dL (0.0-131.0); VLDL Calculation 14.14 mg/dL (5.00-40.00)
[2022-03-25] MEDS: MELATONIN 3 MG TABLET PO PRN (21:18)
--- NOTE | 2022-03-25 21:39 | P.PN ---
Subjective Progress Note Date: 03/25/22 Patient was seen for a follow-up. Multiple family members were present today. Patient is back to baseline. Patient denies any headache or any focal symptoms. Sitting comfortably in the bed. Objective - Vital Signs Vital signs: Vital Signs Temp 98.2 F 03/25/22 08:00 Pulse 68 03/25/22 08:00 Resp 18 03/25/22 08:00 BP 90/56 03/25/22 08:00 Pulse Ox 95 03/25/22 08:00 FiO2 Intake & Output 03/24/22 03/25/22 03/25/22 18:59 06:59 18:59 Weight 45.359 kg Other: Voiding Method Toilet Toilet # Voids 1 1 - Exam Patient's mental status, speech and language functions are normal. Cranial nerves significant for decreased hearing which is chronic. Patient's right facial asymmetry, possible baseline, uncertain new. Muscle strength is normal. No ataxia. Sensations equal. - Labs CBC & Chem 7: 03/25/22 09:45 03/25/22 09:45 Labs: Abnormal Lab Results - Last 24 Hours (Table) 03/25/22 03/25/22 Range/Units 09:45 09:45 Lymphocytes # 0.4 L (1.0-4.8) k/uL Sodium 130 L (137-145) mmol/L Chloride 96 L (98-107) mmol/L Creatinine 0.41 L (0.52-1.04) mg/dL Glucose 110 H (74-99) mg/dL Assessment and Plan Assessment: * Possible acute ischemic stroke versus TIA versus postictal state. Patient has presented with significant expressive aphasia. Her deficits have resolved. NIH stroke scale is 0. 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 * Hyponatremia * Pretension * X tobacco use * Hard of hearing Plan: * Patient's all symptoms have resolved. NIH stroke scale is 0.. * Await MRI of the brain without contrast, evaluate for acute CVA * Await 2-D echo with bubble study to rule out PFO * CTA head and neck showed: Occluded right ICA extending from its origin to the cavernous portion with reconstitution at the [place]. The left ICA is patent. There is intracranial atherosclerosis of the cavernous portion of the left ICA without significant stenosis at the carotid bifurcation. No evidence of dissection. No evidence of intracranial high-grade stenosis or i ntracranial aneurysm. * Patient was on aspirin 81 mg daily. We will add Plavix. Patient will be srinivas ded with Plavix 150 mg and start 75 mg daily from a.m. Suggest dual antiplatelet medication for 21 days and then stop aspirin and continue Plavix indefinitely. * Fasting a.m. lipid panel cholesterol 237, LDL 118.2, HDL 108 and triglycerides 53. Start Lipitor 20 mg daily. * Hemoglobin A1c 5.5 * Await EEG evaluate for epileptiform activity. * Seizure possibly related to hyponatremia. We will load with Keppra 1000 mg IV 1 dose followed by Keppra 500 mg twice a day. * If the EEG is negative, may consider tapering off Keppra, as the seizure likely provoked from hyponatremia. * Optimize control of blood pressure. * Telemetry monitoring rule out any arrhythmia * DVT prophylaxis: Heparin 5000 units subcu every 8 hours * Dr. Pino Sharma Will resume neurology service in the morning.
--- NOTE | 2022-03-26 01:14 | PN ---
PROGRESS NOTE DATE OF SERVICE: 03/25/2022 SUBJECTIVE: This 81-year-old woman, who was admitted with possible seizures, also being evaluated for possible stroke also. No chest pain or palpitations. Neurology input is appreciated. MRI and EEG are also being considered. OBJECTIVE: VITAL SIGNS: Pulse is 68, blood pressure 90/50, and respirations 18. CHEST: Clear to auscultation. CARDIOVASCULAR: S1, S2. ABDOMEN: Soft. NERVOUS SYSTEM: No focal deficits LABORATORY DATA: Reviewed. Sodium 130. Rest of the labs are reviewed. ASSESSMENT: 1. Possible acute transient ischemic attack. 2. Possible seizures. 3. Hyponatremia. 4. Hypertension. 5. Hyperlipidemia. RECOMMENDATIONS: I recommend to continue current management, current medications. Continue workup including MRI and EEG. Sodium has improved. I would recommend repeat labs, PT/OT evaluation. Further recommendations to follow. JANI / GUMARO: [id number] /
[2022-03-26] MEDS: LEVOTHYROXINE 25 MCG TAB PO SCH (07:00)
[2022-03-26] MEDS: PANTOPRAZOLE 40 MG TABLET PO SCH (07:00)
[2022-03-26] MEDS: ATORVASTATIN 20 MG TAB PO SCH ×2 (07:01→22:12)
--- NOTE | 2022-03-26 09:19 | CA ---
Transthoracic Echo Report Name: Ekaterina Robertson Age: 81 Gender: F : 1940 Exam Date: 03/25/2022 15:15 Exam Location: [facility] Ht (in): 52 Wt (lb): 100 Ordering Physician: Slava Lagos MD Attending/Referring Phys: Food Science Professor Verónica Ocampo RDCS Procedure CPT: Indications: CVA Cardiac Hx: Technical Quality: Contrast 1: Total Dose (mL): Contrast 2: Total Dose (mL): MEASUREMENTS (Male / Female) Normal Values 2D ECHO LV Diastolic Diameter PLAX 4.0 cm 4.2 - 5.9 / 3.9 - 5.3 cm LV Systolic Diameter PLAX 3.9 cm IVS Diastolic Thickness 1.2 cm 0.6 - 1.0 / 0.6 - 0.9 cm LVPW Diastolic Thickness 1.5 cm 0.6 - 1.0 / 0.6 - 0.9 cm LV Relative Wall Thickness 0.7 RV Internal Dim ED PLAX 2.5 cm LA Systolic Diameter LX 4.0 cm 3.0 - 4.0 / 2.7 - 3.8 cm LA Volume 68.3 cm??? 18 - 58 / 22 - 52 cm??? M-MODE Aortic Root Diameter MM 3.0 cm LA Systolic Diameter MM 3.3 cm LA Ao Ratio MM 1.1 AV Cusp Separation MM 1.4 cm DOPPLER AV Peak Velocity 173.5 cm/s AV Peak Gradient 12.0 mmHg AV Mean Velocity 123.5 cm/s AV Mean Gradient 6.7 mmHg AV Velocity Time Integral 40.4 cm LVOT Peak Velocity 76.5 cm/s LVOT Peak Gradient 2.3 mmHg MV Peak Velocity 147.1 cm/s MV Peak Gradient 8.7 mmHg MV Mean Velocity 65.5 cm/s MV Mean Gradient 2.1 mmHg MV Velocity Time Integral 34.4 cm MV Area PHT 3.8 cm??? Mitral E Point Velocity 133.3 cm/s Mitral A Point Velocity 69.7 cm/s Mitral E to A Ratio 1.9 MV Deceleration Time 197.2 ms TR Peak Velocity 299.3 cm/s TR Peak Gradient 35.8 mmHg Right Ventricular Systolic Press 39.6 mmHg FINDINGS Left Ventricle Mildly increased septal wall thickness. Left ventricular ejection fraction is estimated at 55 %. Right Ventricle Normal right ventricular size and function. Mild pulmonary hypertension. Right Atrium Normal right atrial size. Left Atrium Mildly increased left atrial diameter. Moderately increased left atrial volume. Mildly increased left atrial area. Mitral Valve Mitral annular calcification. [id number] mitral regurgitation. Aortic Valve Trileaflet aortic valve. Aortic valve sclerosis. Tricuspid Valve Structurally normal tricuspid valve. Mild tricuspid regurgitation. Pulmonic Valve Structurally normal pulmonic valve. Pericardium Echo free space anterior to the right ventricle likely represents a fat pad. Aorta Normal size aortic root and proximal ascending aorta. CONCLUSIONS LVH with preserved systolic function Previewed by: Dr. Efrain Lu MD (Electronically Signed) Final Date: 26 March 2022 09:18
[2022-03-26] MEDS: EZETIMIBE 10 MG TAB PO SCH (10:35)
[2022-03-26] MEDS: ASPIRIN 81 MG PO SCH (10:35)
[2022-03-26] MEDS: guaiFENesin 600 MG TABLET.ER PO SCH ×2 (10:35→22:12)
[2022-03-26] MEDS: CLOPIDOGREL 75 MG TAB PO SCH (10:35)
[2022-03-26] MEDS: levETIRAcetam 500 MG TAB PO SCH ×2 (10:36→22:12)
[2022-03-26 11:51] LABS: African American GFR (CKD) >90 (>60 ml/min/1.73 sqM); Anion Gap 10 mmol/L; Blood Urea Nitrogen 3 mg/dL (7-17); Calcium 9.9 mg/dL (8.4-10.2); Carbon Dioxide 24 mmol/L (22-30); Chloride 102 mmol/L (98-107); Glucose 92 mg/dL (74-99); Non-African American GFR(CKD) >90 (>60 ml/min/1.73 sqM); Potassium 3.6 mmol/L (3.5-5.1); Sodium 136 mmol/L (137-145)
[2022-03-26 12:03] LABS: Basophils % (A) 1 %; Eosinophils % (A) 1 %; HCT 42.3 % (34.0-46.0); HGB 14.1 gm/dL (11.4-16.0); Lymphocytes # (A) 0.8 k/uL (1.0-4.8); Lymphocytes % (A) 15 %; MCH 30.5 pg (25.0-35.0); MCHC 33.4 g/dL (31.0-37.0); MCV 91.4 fL (80.0-100.0); Mean Platelet Volume 7.9; Monocytes # (A) 0.5 k/uL (0-1.0); Monocytes % (A) 10 %; Neutrophils # (A) 3.8 k/uL (1.3-7.7); Neutrophils % (A) 71 %; Platelet Count 282 k/uL (150-450); RBC 4.63 m/uL (3.80-5.40); RDW 13.5 % (11.5-15.5); WBC 5.4 k/uL (3.8-10.6)
[2022-03-26] MEDS ORDERED: ACETAMINOPHEN TAB 325 MG TAB PO PRN (14:28)
--- NOTE | 2022-03-26 14:28 | P.PN ---
Subjective Progress Note Date: 03/26/22 I am seeing the patient for the first time during this admission. It seems the patient had a new onset seizure during this admission and felt due to acute hyponatremia that was suspected. No further seizures. She is on Keppra 500mg 1 tab bid. Please refer to Dr. Lagos's note for further details. Objective - Vital Signs Vital signs: Vital Signs Temp 98.3 F 03/26/22 08:00 Pulse 102 H 03/26/22 08:00 Resp 17 03/26/22 08:00 BP 154/86 03/26/22 08:00 Pulse Ox 97 03/26/22 08:00 FiO2 Intake & Output 03/25/22 03/26/22 03/26/22 18:59 06:59 18:59 Intake Total 240 Balance 240 Intake: Oral 240 Other: Voiding Method Toilet Toilet Toilet # Voids 3 1 - Exam GENERAL: The patient is lying in bed and is not in acute distress. NEUROLOGICAL: Higher mental function: The patient is awake, alert, oriented to self, place and time. Patient is following commands. No aphasia and no neglect. Cranial nerves: The pupils are round, equal and reactive to light . Visual linares are full to confrontation throughout. Extraocular movement is intact no nystagmus is noted. Facial sensation is normal to touch throughout. The facial strength is normal throughout. Hearing is very hard of hearing bilaterally (does not have her hearing aids currently). Tongue is midline and moved [id number] without any difficulty. No dysarthria is noted. Shoulder shrug is normal bilaterally. Motor: The strength is 5 over 5 throughout. Normal tone and bulk. Cerebellum: Normal finger to nose bilaterally. Sensation: Sensation is normal to touch throughout. . - Labs CBC & Chem 7: 03/26/22 10:33 03/26/22 10:33 Labs: Abnormal Lab Results - Last 24 Hours (Table) 03/25/22 03/26/22 03/26/22 Range/Units 09:45 10:33 10:33 Lymphocytes # 0.8 L (1.0-4.8) k/uL Sodium 136 L (137-145) mmol/L BUN 3 L (7-17) mg/dL Creatinine 0.34 L (0.52-1.04) mg/dL HDL Cholesterol 102.00 H (40.00-60.00) mg/dL Assessment and Plan Assessment: * Possible acute ischemic stroke versus TIA versus postictal state. Patient has presented with significant expressive aphasia. Her deficits have resolved. NIH stroke scale is 0. * New onset seizure. Unsure culprit of seizure but suspected due to acute h yponatremia but I feel not severely low to induce seizure. 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 * Hyponatremia * Pretension * X tobacco use * Hard of hearing Plan: * Patient's all symptoms have resolved. NIH stroke scale is 0.. * Await MRI of the brain without contrast, evaluate for acute CVA * 2-D echo: Was reported as left ventricular hypertrophy with preserved systolic function. Mildly increased left atrial diameter. Moderately increased left atrial volume. * CTA waithead and neck showed: Occluded right ICA extending from its origin to the cavernous portion with reconstitution at the [place]. The left ICA is patent. There is intracranial atherosclerosis of the cavernous portion of the left ICA without significant stenosis at the carotid bifurcation. No evidence of dissection. No evidence of intracranial high-grade stenosis or intracranial aneurysm. * Patient was on aspirin 81 mg daily and was added Plavix 75mg during this admission. Agree with dual antiplatelet medication for 21 days and then stop aspirin and continue Plavix indefinitely. * Fasting a.m. lipid panel cholesterol 237, LDL 118.2, HDL 108 and triglycerides 53. Start Lipitor 20 mg daily. * Hemoglobin A1c 5.5 * EEG: Preliminary report is normal. * Dr. Lagos felt Seizure possibly related to hyponatremia but I do not think it was severely low to induce seizure (was 125 and improved to 136) . Continue Keppra 500 mg twice a day. If MRI Brain is normal then consider tapering Keppra within 1-2 weeks as outpatient since had one seizure episode reported then can discontinue. Recommend joint terminal attack controller Keppra with a neurologist as outpatient. * Optimize control of blood pressure. * Telemetry monitoring rule out any arrhythmia * DVT prophylaxis: Heparin 5000 units subcu every 8 hours The plan is discussed with patient and her family members. Time with Patient: Less than 30
[2022-03-26] MEDS ORDERED: POTASSIUM CHLORIDE ER 20 MEQ TAB.ER PO STA (15:33)
[2022-03-26 17:13] VITALS: RESP 18
--- NOTE | 2022-03-26 18:42 | MR ---
EXAMINATION TYPE: MR brain wo con DATE OF EXAM: 03/26/2022 4:53 PM COMPARISON: CT 03/24/2022. CLINICAL INDICATION:Female, 81 years old with history of Seizure vs CVA; TECHNIQUE: Multi planar, multi sequence imaging was performed through the brain including: T1, T2, In version recovery, Diffusion weighted imaging, and gradient echo imaging. No gadolinium was given. FINDINGS: Mild atrophy changes of the cerebrum with appropriate dilatation of the ventricular system. The ventricular system, and cisterns appear unremarkable. Scattered foci of high T2 signal intensity are seen within the periventricular white matter. Midline structures show no abnormality. Diffusion- weighted imaging shows no evidence of restricted diffusion. The susceptibility weighted images do not reveal any evidence for micro-hemorrhage. The bone marrow signal is within normal limits. Paranasal sinuses and mastoid air cells: Mild scattered paranasal sinus disease. Visualized orbits: Bilateral aphakia IMPRESSION: 1. No evidence of intracranial mass or acute/subacute infarct. 2. Nonspecific white matter changes, likely secondary to small vessel ischemic disease.
--- NOTE | 2022-03-26 21:42 | EEG ---
ELECTROENCEPHALOGRAM REPORT CLINICAL HISTORY: This is an 81-year-old woman with new onset seizures. The video EEG is obtained to evaluate for seizure epileptiform activity. RELEVANT MEDICATION: Keppra. EEG TYPE: A routine 21-channel EEG is performed with video using the 10/20 electrode placement system. DESCRIPTION: Wakefulness is only obtained. During awake state, the posterior-dominant rhythm consists of [id number] voltage of 8.5 to 9.5 hertz activity. There was no physiological stage 2 sleep architecture. There is no focal slowing. Interictal and ictal is none. ACTIVATION PROCEDURE: Photic stimulation did not evoke a posterior driving response. There is no abnormality during the photic stimulation. Hyperventilation is not performed. CLINICAL INTERPRETATION: This is a normal routine EEG. There is no focal slowing, epileptiform discharges, or seizure on the EEG. A normal routine EEG does not exclude underlying epilepsy. Clinical correlation is recommended. MMMARIA GUADALUPE / LINON: [id number] /
[2022-03-26] MEDS: METOPROLOL TARTRATE 25 MG TAB PO SCH (22:12)
[2022-03-26] MEDS: amLODIPine 5 MG TAB PO SCH (22:12)
[2022-03-26] MEDS: MELATONIN 3 MG TABLET PO PRN (22:12)
[2022-03-27] MEDS: LEVOTHYROXINE 25 MCG TAB PO SCH (06:37)
[2022-03-27] MEDS: PANTOPRAZOLE 40 MG TABLET PO SCH (06:37)
[2022-03-27] MEDS: EZETIMIBE 10 MG TAB PO SCH (09:08)
[2022-03-27] MEDS: levETIRAcetam 500 MG TAB PO SCH (09:08)
[2022-03-27] MEDS: guaiFENesin 600 MG TABLET.ER PO SCH (09:08)
[2022-03-27] MEDS: METOPROLOL TARTRATE 25 MG TAB PO SCH (09:08)
[2022-03-27] MEDS: amLODIPine 5 MG TAB PO SCH (09:08)
[2022-03-27] MEDS: CLOPIDOGREL 75 MG TAB PO SCH (09:08)
[2022-03-27] MEDS: ASPIRIN 81 MG PO SCH (09:08)
[2022-03-27 09:16] LABS: African American GFR (CKD) >90 (>60 ml/min/1.73 sqM); Anion Gap 10 mmol/L; Blood Urea Nitrogen 6 mg/dL (7-17); Calcium 9.7 mg/dL (8.4-10.2); Carbon Dioxide 25 mmol/L (22-30); Chloride 98 mmol/L (98-107); Glucose 104 mg/dL (74-99); Non-African American GFR(CKD) >90 (>60 ml/min/1.73 sqM); Potassium 3.9 mmol/L (3.5-5.1); Sodium 133 mmol/L (137-145)
--- NOTE | 2022-03-27 13:03 | P.PN ---
Subjective Progress Note Date: 03/27/22 The patient is seen at bedside and no further seizure-like activities. She feels at baseline. Objective - Vital Signs Vital signs: Vital Signs Temp 98.2 F 03/27/22 08:00 Pulse 72 03/27/22 08:00 Resp 18 03/27/22 08:00 BP 157/73 03/27/22 08:00 Pulse Ox 96 03/27/22 08:19 FiO2 Intake & Output 03/26/22 03/27/22 03/27/22 18:59 06:59 18:59 Intake Total 240 118 Balance 240 118 Intake: Oral 240 118 Other: Voiding Method Toilet Toilet Toilet # Voids 3 - Exam GENERAL: The patient is lying in bed and is not in acute distress. NEUROLOGICAL: Higher mental function: The patient is awake, alert, oriented to self, place and time. Patient is following commands. No aphasia and no neglect. Cranial nerves: The pupils are round, equal and reactive to light . Visual linares are full to confrontation throughout. Extraocular movement is intact no nystagmus is noted. Facial sensation is normal to touch throughout. The facial strength is normal throughout. Hearing is very hard of hearing bilaterally (does not have her hearing aids currently). Tongue is midline and moved [id number] without any difficulty. No dysarthria is noted. Shoulder shrug is normal bilaterally. Motor: The strength is 5 over 5 throughout. Normal tone and bulk. Cerebellum: Normal finger to nose bilaterally. Sensation: Sensation is normal to touch throughout. . - Labs CBC & Chem 7: 03/26/22 10:33 03/27/22 08:45 Labs: Abnormal Lab Results - Last 24 Hours (Table) 03/27/22 Range/Units 08:45 Sodium 133 L (137-145) mmol/L BUN 6 L (7-17) mg/dL Creatinine 0.38 L (0.52-1.04) mg/dL Glucose 104 H (74-99) mg/dL Assessment and Plan Assessment: * New onset seizure. Unsure culprit of seizure but suspected due to acute hyponatremia but I feel not severely low to induce seizure. * Possible postictal state. Patient has presented with significant expressive aphasia. Her deficits have resolved. Cannot rule out TIA. NIH stroke scale is 0. MRI Brain is negative for mass or stroke. 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 * Hyponatremia * Pretension * X tobacco use * Hard of hearing Plan: * Patient's all symptoms have resolved. NIH stroke scale is 0.. * MRI of the brain without contrast, evaluate for acute CVA: Was reported as no evidence of intracranial mass or acute/subacute infarct. Nonspecific white ma tter changes, likely secondary to small vessel ischemic disease. I personally reviewed the MRI and I agree there is no acute subacute ischemia or mass effect. * 2-D echo: Was reported as left ventricular hypertrophy with preserved systolic function. Mildly increased left atrial diameter. Moderately increased left atrial volume. * CTA waithead and neck showed: Occluded right ICA extending from its origin to the cavernous portion with reconstitution at the [place]. The left ICA is patent. There is intracranial atherosclerosis of the cavernous portion of the left ICA without significant stenosis at the carotid bifurcation. No evidence of dissection. No evidence of intracranial high-grade stenosis or intracranial aneurysm. * Patient was on aspirin 81 mg daily and was added Plavix 75mg during this admission. Agree with dual antiplatelet medication for 21 days and then stop aspirin and continue Plavix indefinitely. * Fasting a.m. lipid panel cholesterol 237, LDL 118.2, HDL 108 and triglycerides 53. Start Lipitor 20 mg daily. * Hemoglobin A1c 5.5 * EEG: Preliminary report is normal. * Dr. Lagos felt Seizure possibly related to hyponatremia but I do not think it was severely low to induce seizure (was 125 and improved to 136) . Continue Keppra 500 mg twice a day. If MRI Brain is normal then consider tapering Keppra within 1-2 weeks as outpatient since had one seizure episode reported then can discontinue. Recommend assisted Keppra with a neurologist as outpatient. * Optimize control of blood pressure. * Telemetry monitoring rule out any arrhythmia * DVT prophylaxis: Heparin 5000 units subcu every 8 hours The plan is discussed with patient and her nurse. There is no further neurological work-up and patient is clear for discharge from neurological perspective. Time with Patient: Less than 30
[2022-03-27 13:46] VITALS: BP 171/93; PULSE 66; TEMP 97.7
== END 2022-03-27 14:08 | disposition home or self-care (01) | DRG 101 ==
LOC: EC 11:23 → 3SCARD 13:37
PROVIDERS: ADMIT Internal Medicine; ATTEND Internal Medicine
DX: G40.409 Other generalized epilepsy and epileptic syndromes, not intractable, without status epilepticus (principal); E87.1 Hypo-osmolality and hyponatremia; R47.01 Aphasia; G45.9 Transient cerebral ischemic attack, unspecified; E78.5 Hyperlipidemia, unspecified; R29.701 NIHSS score 1; R29.700 NIHSS score 0; K21.9 Gastro-esophageal reflux disease without esophagitis; Z20.822 Contact with and (suspected) exposure to COVID-19; R29.810 Facial weakness; E07.9 Disorder of thyroid, unspecified; I49.3 Ventricular premature depolarization; H91.93 Unspecified hearing loss, bilateral; I11.9 Hypertensive heart disease without heart failure; Z87.891 Personal history of nicotine dependence; Z79.899 Other long term (current) drug therapy; Z79.890 Hormone replacement therapy; Z79.82 Long term (current) use of aspirin; Z95.5 Presence of coronary angioplasty implant and graft; Z95.820 Peripheral vascular angioplasty status with implants and grafts
CPT/HCPCS: 36415; 70450; 70496; 70498; 70551; 71045; 80048; 80053; 80061; 83880; 84484; 85025; 85610; 85730; 87634; 87635; 93005; 93306; 94640; 94760; 95816; 96365; 96366; 96375; 99285

== ENCOUNTER 2022-12-30 19:05 | Inpatient (IN) | payer MEDICARE ==
[2022-12-30] MEDS ORDERED: ALBUTEROL NEBULIZED 2.5 MG/3 ML INHALATION STA (19:09)
--- NOTE | 2022-12-30 19:10 | ED ---
SOB HPI - General Stated Complaint: JAQUAN Time Seen by Provider: 12/30/22 19:08 - History of Present Illness Initial Comments: Sandra is a pleasant 82-year-old female brought to the emergency department via private vehicle for evaluation of respiratory distress. Patient reports she was in usual state of health when she had sudden onset of difficulty breathing. She notified her neighbor who brought her to the hospital for further evaluation. Patient denies any significant cardiac history history of COPD she's never been hospitalized for difficulty breathing before. Onset was quite sudden. She denies any chest pain she did have palpitations and feeling like her heart was racing while she could not breathe. Daughter reports that they saw her primary care provider on during exam he noted that her heartbeat was irregular and he was concerned that she had A. fib however he didn't EKG and stated that she is not in A. fib at that time. She was recently admitted for possible neuro findings or strokelike findings but was found to have hyponatremia she was discharged on multiple medications but with following up with her primary care on he advised her to discontinue the Lipitor and Plavix due to the other medication she is arty taking. - Related Data Home Medications Medication Instructions Recorded Confirmed Levothyroxine Sodium [Synthroid] 25 mcg PO DAILY 08/16/14 12/30/22 Metoprolol Tartrate [Lopressor] 25 mg PO BID 08/16/14 12/30/22 amLODIPine [Norvasc] 5 mg PO DAILY 08/16/14 12/30/22 Ezetimibe [Zetia] 10 mg PO DAILY 12/01/19 12/30/22 Sodium Bicarbonate 325 mg PO MOWEFR 12/23/22 12/30/22 Previous Rx's Medication Instructions Recorded Acetaminophen Tab [Tylenol] 650 mg PO Q6HR PRN tab 12/25/22 Aspirin 81 mg PO DAILY #30 tab 12/25/22 Atorvastatin [Lipitor] 40 mg PO DAILY #30 tablet 12/25/22 Clopidogrel [Plavix] 75 mg PO DAILY 30 Days #30 tab 12/25/22 Allergies Allergy/AdvReac Type Severity Reaction Status Date / Time Yeast Allergy Unknown Verified 12/30/22 20:30 Environmental-mold,dustmites,pollen Allergy sinus Uncoded 12/30/22 20:30 symptoms Review of Systems ROS Statement: Those systems with pertinent positive or pertinent negative responses have been documented in the HPI. ROS Other: All systems not noted in ROS Statement are negative. Past Medical History Past Medical History: GERD/Reflux, Hyperlipidemia, Hypertension, Thyroid Disorder Additional Past Medical History / Comment(s): ABD PAIN. LOST APPETITE, EATING CAUSES PAIN. CHOL.-DIET CONTROLLED History of Any Multi-Drug Resistant Organisms: None Reported Past Surgical History: Heart Catheterization With Stent, Orthopedic Surgery Additional Past Surgical History / Comment(s): LT CAROTID ENDARTERECTOMY. LT SHOULDER SURGERY. LT ANKLE SURGERY WITH PLATE & SCREWS IN. COLONOSCOPY, ANGIOGRAM, Stent bilat.legs. Past Anesthesia/Blood Transfusion Reactions: No Reported Reaction Date of Last Stent Placement:: 2004 Past Psychological History: No Psychological Hx Reported Smoking Status: Former smoker Past Alcohol Use History: Occasional Additional Past Alcohol Use History / Comment(s): STARTED SMOKING AGE 18(9) AND QUIT 2001- WAS 1PPD Past Drug Use History: None Reported Additional Drug Use History / Comment(s): 2 drinks/ day-red wine and beer - Past Family History Mother Family Medical History: No Reported History General Exam - General Exam Comments Initial Comments: Physical Exam GENERAL: Elderly female in moderate respiratory distress HENT: Normocephalic, Atraumatic. EYES: PERRL, EOMI PULMONARY: Tachypnea and increased work of breathing Nearly quiet chest with some wheezing CARDIOVASCULAR: Irregularly irregular tachycardia concerning for atrial fibrillation with RVR ABDOMEN: Soft and nontender with normal bowel sounds. SKIN: Skin is dry : Deferred NEUROLOGIC: Patient is alert and oriented x3. Moving all extremities spontaneously MUSCULOSKELETAL: Normal extremities with adequate strength and full range of motion. No lower extremity swelling or edema. No calf tenderness. PSYCHIATRIC: Normal psychiatric evaluation. Course Vital Signs 12/30/22 12/30/22 12/30/22 19:05 19:14 19:30 Temperature Pulse Rate 118 H 125 H 133 H Respiratory 24 Rate Blood Pressure 140/99 O2 Sat by Pulse 79 L Oximetry 12/30/22 12/30/22 12/30/22 20:00 21:12 21:20 Temperature 97.9 F Pulse Rate 113 H 105 H Respiratory 20 Rate Blood Pressure 71/55 100/79 100/79 O2 Sat by Pulse 97 99 Oximetry 12/30/22 12/30/22 12/30/22 21:30 21:40 21:50 Temperature Pulse Rate 101 H 111 H 109 H Respiratory Rate Blood Pressure 100/79 O2 Sat by Pulse 99 98 100 Oximetry 12/30/22 22:10 Temperature Pulse Rate Respiratory Rate Blood Pressure 90/70 O2 Sat by Pulse 100 Oximetry Medical Decision Making - Medical Decision Making Patient arrived via private vehicle to the ambulance bay door and was noted to be in acute respiratory distress The patient was seen and evaluated immediately upon arrival to the emergency department On arrival the patient has oxygen saturation of 77%, she was placed on supplement oxygenation via nonrebreather mask and respiratory was paged for b reathing treatments Initial history was limited by patient's respiratory distress her neighbor who lianna rought her here was able to advise that she previously was a very heavy smoker has not smoked for a number of years Labs and imaging were obtained Lactic acid was elevated, initial troponin is mildly elevated She responded well to breathing treatments supplement oxygen and Ativan EKG suggestive of new onset A. fib with RVR Lactic acid and troponin were trended lactic acidosis resolved however troponin was turning up patient remained without chest pain Heparin was started due to elevated troponin and new onset A. fib, I suspect this is a type II and STEMI secondary to prolonged hypoxia and respiratory distress Patient resting comfortably in the ER, given the new onset tachycardia hypoxia C TA was obtained and there is no evidence of pulmonary embolism however there does appear to be a multifocal pneumonia and antibiotics were ordered Patient will be admitted to the hospital for new onset A. fib with RVR, respiratory distress, CHF exacerbation Cardiology and pulmonology consults placed upon admission Was pt. sent in by a medical professional or institution (, PA, SHIPYARD PAINTER APPRENTICE, urgent care, hospital, or usp...) When possible be specific @ -Yes, Dr. Patel Did you speak to anyone other than the patient for history (EMS, parent, family, police, friend...)? What history was obtained from this source @ -Patient's neighbor Dr. Patel Did you review nursing and triage notes (agree or disagree)? Why? @ -I reviewed and agree with nursing and triage notes Were old charts reviewed (outside hosp., previous admission, EMS record, old EKG, old radiological studies, urgent care reports/EKG's, usp records)? Report findings @ -Previous admission from last week was reviewed Differential Diagnosis (chest pain, altered mental status, abdominal pain women, abdominal pain men, vaginal bleeding, weakness, fever, dyspnea, syncope, headache, dizziness, GI bleed, back pain, seizure, CVA, palpatations, mental health, musculoskeletal)? @ -Differential Dyspnea: Coronary syndrome, arrhythmia, tamponade, asthma, COPD, pulmonary embolism, pneumonia, pneumothorax, pulmonary effusion, anaphylaxis, diabetic ketoacidosis, flailed chest, pulmonary contusion, diaphragmatic rupture, anemia, neuromuscular, this is not meant to be an all-inclusive list. EKG interpreted by me (3pts min.). @ -As above X-rays interpreted by me (1pt min.). @ -Chronic changes, no pneumothorax no obvious pneumonia CT interpreted by me (1pt min.). @ -No PE, pleural effusions noted U/S interpreted by me (1pt. min.). @ -None done What testing was considered but not performed or refused? (CT, X-rays, U/S, labs)? Why? @ -None What meds were considered but not given or refused? Why? @ -None Did you discuss the management of the patient with other professionals (apryl barber i.e. , PA, SHIPYARD PAINTER APPRENTICE, lab, RT, psych nurse, social work job titles, bioanalyst, teacher, operations officer afloat, manager case)? Give summary @ -No Was smoking cessation discussed for >3mins.? @ -No Was critical care preformed (if so, how long)? @ -Yes, 33 minutes Were there social determinants of health that impacted care today? How? (Homelessness, low income, unemployed, alcoholism, drug addiction, transportation, low edu. Level, literacy, decrease access to med. care, penitentiary, rehab)? @ -No Was there de-escalation of care discussed even if they declined (Discuss DNR or withdrawal of care, Hospice)? DNR status @ -No What co-morbidities impacted this encounter? (DM, HTN, Smoking, COPD, CAD, Cancer, CVA, ARF, Chemo, Hep., AIDS, mental health diagnosis, sleep apnea, morbid obesity)? @ -None Was patient admitted / discharged? Hospital course, mention meds given and route, prescriptions, significant lab abnormalities, going to OR and other pertinent info. @ -Admit Undiagnosed new problem with uncertain prognosis? @ -No Drug Therapy requiring intensive monitoring for toxicity (Heparin, Nitro, Insuli n, Cardizem)? @ -Yes, heparin Were any procedures done? @ -No Diagnosis/symptom? @ -New onset A. fib RVR, CHF, multifocal pneumonia, respiratory distress Acute, or Chronic, or Acute on Chronic? @ -Acute Uncomplicated (without systemic symptoms) or Complicated (systemic symptoms)? @ -Complicated Side effects of treatment? @ -No Exacerbation, Progression, or Severe Exacerbation? @ -No Poses a threat to life or bodily function? How? (Chest pain, USA, MA, pneumonia, PE, COPD, DKA, ARF, appy, cholecystitis, CVA, Diverticulitis, Homicidal, Suicidal, threat to staff... and all critical care pts) @ -Yes - Lab Data Result diagrams: 12/30/22 19:26 12/30/22 19:26 Lab Results 12/30/22 12/30/22 12/30/22 Range/Units 19:26 19:26 19:26 WBC 9.9 (3.8-10.6) k/uL RBC 4.76 (3.80-5.40) m/uL Hgb 14.5 (11.4-16.0) gm/dL Hct 44.5 (34.0-46.0) % MCV 93.5 (80.0-100.0) fL MCH 30.5 (25.0-35.0) pg MCHC 32.6 (31.0-37.0) g/dL RDW 13.8 (11.5-15.5) % Plt Count 418 (150-450) k/uL MPV 7.7 Neutrophils % 53 % Lymphocytes % 36 % Monocytes % 6 % Eosinophils % 2 % Basophils % 1 % Neutrophils # 5.2 (1.3-7.7) k/uL Lymphocytes # 3.6 (1.0-4.8) k/uL Monocytes # 0.6 (0-1.0) k/uL Eosinophils # 0.2 (0-0.7) k/uL Basophils # 0.1 (0-0.2) k/uL PT 9.9 (9.0-12.0) sec INR 0.9 (<1.2) APTT 21.6 L (22.0-30.0) sec Sodium 127 L (137-145) mmol/L Potassium 4.5 (3.5-5.1) mmol/L Chloride 91 L (98-107) mmol/L Carbon Dioxide 21 L (22-30) mmol/L Anion Gap 15 mmol/L BUN 7 (7-17) mg/dL Creatinine 0.44 L (0.52-1.04) mg/dL Est GFR (CKD-EPI)AfAm >90 (>60 ml/min/1.73 sqM) Est GFR (CKD-EPI)NonAf >90 (>60 ml/min/1.73 sqM) Glucose 131 H (74-99) mg/dL Lactic Ac Sepsis Rflx Plasma Lactic Acid Bhanu (0.7-2.0) mmol/L Calcium 9.7 (8.4-10.2) mg/dL Total Bilirubin 0.7 (0.2-1.3) mg/dL AST 31 (14-36) U/L ALT 22 (4-34) U/L Alkaline Phosphatase 79 (38-126) U/L Troponin I (0.000-0.034) ng/mL NT-Pro-B Natriuret Pep 1670 pg/mL Total Protein 8.0 (6.3-8.2) g/dL Albumin 5.0 (3.5-5.0) g/dL Influenza Type A (PCR) (Not Detectd) Influenza Type B (PCR) (Not Detectd) RSV (PCR) (Not Detectd) SARS-CoV-2 (PCR) (Not Detectd) 12/30/22 12/30/22 12/30/22 Range/Units 19:26 19:26 19:26 WBC (3.8-10.6) k/uL RBC (3.80-5.40) m/uL Hgb (11.4-16.0) gm/dL Hct (34.0-46.0) % MCV (80.0-100.0) fL MCH (25.0-35.0) pg MCHC (31.0-37.0) g/dL RDW (11.5-15.5) % Plt Count (150-450) k/uL MPV Neutrophils % % Lymphocytes % % Monocytes % % Eosinophils % % Basophils % % Neutrophils # (1.3-7.7) k/uL Lymphocytes # (1.0-4.8) k/uL Monocytes # (0-1.0) k/uL Eosinophils # (0-0.7) k/uL Basophils # (0-0.2) k/uL PT (9.0-12.0) sec INR (<1.2) APTT (22.0-30.0) sec Sodium (137-145) mmol/L Potassium (3.5-5.1) mmol/L Chloride (98-107) mmol/L Carbon Dioxide (22-30) mmol/L Anion Gap mmol/L BUN (7-17) mg/dL Creatinine (0.52-1.04) mg/dL Est GFR (CKD-EPI)AfAm (>60 ml/min/1.73 sqM) Est GFR (CKD-EPI)NonAf (>60 ml/min/1.73 sqM) Glucose (74-99) mg/dL Lactic Ac Sepsis Rflx Plasma Lactic Acid Bhanu 4.2 H* (0.7-2.0) mmol/L Calcium (8.4-10.2) mg/dL Total Bilirubin (0.2-1.3) mg/dL AST (14-36) U/L ALT (4-34) U/L Alkaline Phosphatase (38-126) U/L Troponin I 0.039 H* (0.000-0.034) ng/mL NT-Pro-B Natriuret Pep pg/mL Total Protein (6.3-8.2) g/dL Albumin (3.5-5.0) g/dL Influenza Type A (PCR) Not Detected (Not Detectd) Influenza Type B (PCR) Not Detected (Not Detectd) RSV (PCR) Not Detected (Not Detectd) SARS-CoV-2 (PCR) Not Detected (Not Detectd) 12/30/22 12/30/22 12/30/22 Range/Units 20:10 22:22 22:22 WBC (3.8-10.6) k/uL RBC (3.80-5.40) m/uL Hgb (11.4-16.0) gm/dL Hct (34.0-46.0) % MCV (80.0-100.0) fL MCH (25.0-35.0) pg MCHC (31.0-37.0) g/dL RDW (11.5-15.5) % Plt Count (150-450) k/uL MPV Neutrophils % % Lymphocytes % % Monocytes % % Eosinophils % % Basophils % % Neutrophils # (1.3-7.7) k/uL Lymphocytes # (1.0-4.8) k/uL Monocytes # (0-1.0) k/uL Eosinophils # (0-0.7) k/uL Basophils # (0-0.2) k/uL PT (9.0-12.0) sec INR (<1.2) APTT (22.0-30.0) sec Sodium (137-145) mmol/L Potassium (3.5-5.1) mmol/L Chloride (98-107) mmol/L Carbon Dioxide (22-30) mmol/L Anion Gap mmol/L BUN (7-17) mg/dL Creatinine (0.52-1.04) mg/dL Est GFR (CKD-EPI)AfAm (>60 ml/min/1.73 sqM) Est GFR (CKD-EPI)NonAf (>60 ml/min/1.73 sqM) Glucose (74-99) mg/dL Lactic Ac Sepsis Rflx Y Plasma Lactic Acid Bhanu 1.8 (0.7-2.0) mmol/L Calcium (8.4-10.2) mg/dL Total Bilirubin (0.2-1.3) mg/dL AST (14-36) U/L ALT (4-34) U/L Alkaline Phosphatase (38-126) U/L Troponin I 0.401 H* (0.000-0.034) ng/mL NT-Pro-B Natriuret Pep pg/mL Total Protein (6.3-8.2) g/dL Albumin (3.5-5.0) g/dL Influenza Type A (PCR) (Not Detectd) Influenza Type B (PCR) (Not Detectd) RSV (PCR) (Not Detectd) SARS-CoV-2 (PCR) (Not Detectd) - EKG Data -: EKG Interpreted by Me EKG Comments: EKG is interpreted by me, EKG is obtained due to shortness of breath Initial EKG was obtained at 1911, rate is 127 rhythm is narrow complex irregularly irregular rhythm with significant respiratory artifact. This appears to be in atrial fibrillation however respiratory artifact limits interpretation, repeat EKG will be obtained with patient is no longer respiratory distress. Repeat EKG was obtained at 2025 rate is 121 rhythm is again atrophic relation with RVR. There are no acute ST elevations or depressions no evidence acute ischemia or infarction. Repeat EKG due to increasing Troponin , obtained at 00:04 rate is 91 rhythm is atrial narrow complex and irregularly irregular, though that does appear to be P waves before most QRS. There are no acute ST elevations, depression of less than 1 mm laterally. No evidence of acute infarction. Disposition Clinical Impression: Congestive heart failure, Hyponatremia, Multifocal pneumonia, Elevated troponin, Respiratory distress, Lactic acidosis Disposition: ADMITTED IP TO THIS HOSP Condition: Serious Is patient prescribed a controlled substance at d/c from ED?: No Referrals: Srinivas Villalta DO [Primary Care Provider] - 1-2 days
[2022-12-30] MEDS: IPRATROPIUM-ALBUTEROL 3 ML NEB INHALATION STA (19:11)
[2022-12-30] MEDS ORDERED: LORazepam 2 MG/ML INJ IV STA (19:25)
--- NOTE | 2022-12-30 20:04 | XR ---
EXAMINATION TYPE: XR chest 1V portable DATE OF EXAM: 12/30/2022 7:50 PM CLINICAL INDICATION:Female, 82 years old with history of dyspnea; [facility] COMPARISON: Chest radiographs from 12/23/2022 TECHNIQUE: XR chest 1V portable Frontal view of the chest. FINDINGS: Lungs/Pleura: No evidence of focal consolidation or pneumothorax. Blunting of the costophrenic angles is present. Pulmonary vascularity: Pulmonary vascular congestion. Heart/mediastinum: Cardiomediastinal silhouette is enlarged and stable. Musculoskeletal: No acute osseous pathology. Left shoulder arthroplasty appears intact. Other findings: None IMPRESSION: Cardiomegaly, pulmonary vascular congestion and bilateral pleural effusions. Correlate with BNP for c ongestive heart failure.
[2022-12-30 20:07] LABS: Basophils # (A) 0.1 k/uL (0-0.2); Basophils % (A) 1 %; Eosinophils # (A) 0.2 k/uL (0-0.7); Eosinophils % (A) 2 %; HCT 44.5 % (34.0-46.0); HGB 14.5 gm/dL (11.4-16.0); Lymphocytes # (A) 3.6 k/uL (1.0-4.8); Lymphocytes % (A) 36 %; MCH 30.5 pg (25.0-35.0); MCHC 32.6 g/dL (31.0-37.0); MCV 93.5 fL (80.0-100.0); Mean Platelet Volume 7.7; Monocytes # (A) 0.6 k/uL (0-1.0); Monocytes % (A) 6 %; Neutrophils # (A) 5.2 k/uL (1.3-7.7); Neutrophils % (A) 53 %; Platelet Count 418 k/uL (150-450); RBC 4.76 m/uL (3.80-5.40); RDW 13.8 % (11.5-15.5); WBC 9.9 k/uL (3.8-10.6)
[2022-12-30 20:18] LABS: ALT 22 U/L (4-34); African American GFR (CKD) >90 (>60 ml/min/1.73 sqM); Alkaline Phosphatase 79 U/L (38-126); Anion Gap 15 mmol/L; Calcium 9.7 mg/dL (8.4-10.2); Carbon Dioxide 21 mmol/L (22-30); Chloride 91 mmol/L (98-107); Glucose 131 mg/dL (74-99); Non-African American GFR(CKD) >90 (>60 ml/min/1.73 sqM); Potassium 4.5 mmol/L (3.5-5.1); Sodium 127 mmol/L (137-145)
[2022-12-30 20:19] LABS: Blood Urea Nitrogen 7 mg/dL (7-17); Total Bilirubin 0.7 mg/dL (0.2-1.3)
[2022-12-30 20:24] LABS: NT-Pro-B-Type Natriuretic Pept 1670 pg/mL
[2022-12-30] MEDS ORDERED: HEPARIN SODIUM 1,000 UN/ML (10ML VL) IV ONE (20:28)
[2022-12-30] MEDS ORDERED: HEPARIN SODIUM 1,000 UN/ML (10ML VL) IV PRN (20:28)
[2022-12-30 20:29] LABS: INR 0.9 (<1.2); Partial Thromboplastin Time 21.6 sec (22.0-30.0); Prothrombin Time 9.9 sec (9.0-12.0)
[2022-12-30] MEDS ORDERED: HEPARIN SOD,PORK IN 0.45% NACL 25,000 UNIT in 0.45% NACL 1 250ML.BAG IV SCH (20:30)
[2022-12-30 20:41] LABS: AST 31 U/L (14-36)
[2022-12-30] MEDS ORDERED: FUROSEMIDE 10 MG/ML 4 ML VIAL IV STA (21:28)
--- NOTE | 2022-12-31 01:00 | CT ---
EXAM: CT Angiography Chest With Intravenous Contrast CLINICAL HISTORY: ITS.REASON CT Reason: respiratory distress, new arrhythmia TECHNIQUE: Axial computed tomographic angiography images of the chest with intravenous contrast. CTDI is 16.2 mGy and DLP is 335.8 mGy-cm. This CT exam was performed using one or more of the following dose reduction techniques: automated exposure control, adjustment of the mA and/or kV according to patient size, and/or use of iterative reconstruction technique. MIP reconstructed images were created and reviewed. COMPARISON: No relevant prior studies available. FINDINGS: Pulmonary arteries: Unremarkable. No acute pulmonary embolism. Aorta: Atherosclerotic changes of the aorta. No thoracic aortic aneurysm. Lungs: Dependent airspace consolidations, consistent with multifocal pneumonia/aspiration. Pleural space: Small bilateral parapneumonic effusions. No pneumothorax. Heart: Cardiomegaly. No significant pericardial effusion. No evidence of RV dysfunction. Bones/joints: LEFT shoulder arthroplasty. Degenerative changes of the spine. Soft tissues: Unremarkable. Lymph nodes: Unremarkable. No enlarged lymph nodes. IMPRESSION: 1. No acute pulmonary embolism. 2. Dependent airspace consolidations, consistent with multifocal pneumonia/aspiration. 3. Small bilateral parapneumonic effusions.
[2022-12-31] MEDS ORDERED: PNEUMONIA PROTOCOL UTILIZED 1 EACH MISC PO PRN (01:12)
[2022-12-31] MEDS ORDERED: AZITHROMYCIN 500 MG in SODIUM CHLORIDE 0.9% 250 ML IVPB STA (01:12)
[2022-12-31] MEDS: HEPARIN SOD,PORK IN 0.45% NACL 25,000 UNIT in 0.45% NACL 1 250ML.BAG IV SCH (01:48)
[2022-12-31 02:50] LABS: Basophils % (A) 0 %; Eosinophils # (A) 0.2 k/uL (0-0.7); Eosinophils % (A) 2 %; HCT 36.4 % (34.0-46.0); HGB 12.4 gm/dL (11.4-16.0); Lymphocytes # (A) 0.9 k/uL (1.0-4.8); Lymphocytes % (A) 11 %; MCH 31.3 pg (25.0-35.0); MCV 91.9 fL (80.0-100.0); Mean Platelet Volume 7.1; Monocytes # (A) 0.5 k/uL (0-1.0); Monocytes % (A) 6 %; Neutrophils # (A) 6.2 k/uL (1.3-7.7); Neutrophils % (A) 78 %; Platelet Count 293 k/uL (150-450); RBC 3.96 m/uL (3.80-5.40); RDW 13.8 % (11.5-15.5); WBC 7.8 k/uL (3.8-10.6)
[2022-12-31] MEDS ORDERED: ACETAMINOPHEN TAB 325 MG TAB PO PRN (04:47)
[2022-12-31] MEDS: ATORVASTATIN 40 MG TAB PO SCH (09:54)
[2022-12-31] MEDS: SODIUM BICARBONATE TAB 650 MG TAB PO SCH (10:10)
[2022-12-31] MEDS: EZETIMIBE 10 MG TAB PO SCH (10:10)
[2022-12-31] MEDS: LEVOTHYROXINE 25 MCG TAB PO SCH (10:10)
[2022-12-31] MEDS: CLOPIDOGREL 75 MG TAB PO SCH (10:10)
[2022-12-31] MEDS ORDERED: METOPROLOL TARTRATE 25 MG TAB PO STA (11:25)
[2022-12-31] MEDS: SODIUM CHLORIDE 0.9% 1,000 ML IV SCH (12:15)
--- NOTE | 2022-12-31 12:48 | P.HPIM ---
History of Present Illness H&P Date: 12/31/22 History of present illness; patient is a 82-year-old lady with past medical hist ory significant for hypertension, hypothyroidism who presented to the ER because of shortness of breath. Patient was recently admitted to the hospital for stroke workup, evaluated by neurology underwent extensive workup including MRI as well as 2-D echo with bubble study which was negative. Patient was also evaluated by vascular surgery with no plans for surgical intervention and recommending outpatient follow-up. Patient stated she was all right yesterday when she started noticing sudden onset of shortness of breath. Shortness of breath was present at rest, not associated with any chest pain. Patient was complaining of palpitations. Denies any swelling of feet. Denied any orthopnea or PND. Patient recently saw her PCP who was concerned about patient having A. fib but a t that time EKG did not reveal any arrhythmia. Because of shortness of breath, patient came to the ER Initial lab work done in the ER showed WBC 9.9, hemoglobin 14.5, platelet count 14, sodium 127, potassium 4.5, BUN 7, creatinine 0.44, lactate 4.2 EKG done in the ER showed heart rate of 127, QRS 94, no ST segment elevation seen, no P waves seen. Chest x-ray done in the ER showed cardiomegaly, pulmonary congestion and bilateral pleural effusions CTA chest done showed no PE, dependent airspace consolidations consistent with multifocal pneumonia. Small bilateral parapneumonic effusions Patient admitted to medicine service REVIEW OF SYSTEMS: CONSTITUTIONAL: No fever, no malaise, no fatigue. HEENT: No recent visual problems or hearing problems. Denied any sore throat. CARDIOVASCULAR: As mentioned in HPI PULMONARY: As mentioned in HPI GASTROINTESTINAL: No diarrhea, no nausea, no vomiting, no abdominal pain. NEUROLOGICAL: No headaches, no weakness, no numbness. HEMATOLOGICAL: Denies any bleeding or petechiae. GENITOURINARY: Denies any burning micturition, frequency, or urgency. MUSCULOSKELETAL/RHEUMATOLOGICAL: Denies any joint pain, swelling, or any muscle pain. ENDOCRINE: Denies any polyuria or polydipsia. The rest of the 14-point review of systems is negative. PHYSICAL EXAMINATION: GENERAL: The patient is alert and oriented x3, not in any acute distress. Well developed, well nourished. HEENT: Pupils are round and equally reacting to light. EOMI. No scleral icterus. No conjunctival pallor. Normocephalic, atraumatic. No pharyngeal erythema. No thyromegaly. CARDIOVASCULAR: S1 and S2 present. No murmurs, rubs, or gallops. PULMONARY: Diminished breath sounds at the bases bilaterally ABDOMEN: Soft, nontender, nondistended, normoactive bowel sounds. No palpable organomegaly. MUSCULOSKELETAL: No joint swelling or deformity. EXTREMITIES: No cyanosis, clubbing, or pedal edema. NEUROLOGICAL: Gross neurological examination did not reveal any focal deficits. SKIN: No rashes. Assessment and plan Non-ST elevation KS Acute hypoxemic respiratory failure A. 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 Continue same treatment. Continue with symptomatic treatment. Resume home medication. Monitor labs and vitals. DVT and GI prophylaxis. Further recommendations as per clinical course of the patient Dictation was produced using [employer] dictation software. please excuse any grammatical, word or spelling errors. Past Medical History Past Medical History: GERD/Reflux, Hyperlipidemia, Hypertension, Thyroid Disorder Additional Past Medical History / Comment(s): ABD PAIN. LOST APPETITE, EATING CAUSES PAIN. CHOL.-DIET CONTROLLED History of Any Multi-Drug Resistant Organisms: None Reported Past Surgical History: Heart Catheterization With Stent, Orthopedic Surgery Additional Past Surgical History / Comment(s): LT CAROTID ENDARTERECTOMY. LT SHOULDER SURGERY. LT ANKLE SURGERY WITH PLATE & SCREWS IN. COLONOSCOPY, ANGIOGRAM, Stent bilat.legs. Past Anesthesia/Blood Transfusion Reactions: No Reported Reaction Date of Last Stent Placement:: 2004 Past Psychological History: No Psychological Hx Reported Smoking Status: Former smoker Past Alcohol Use History: Occasional Additional Past Alcohol Use History / Comment(s): STARTED SMOKING AGE 18(1961) AND QUIT 2001- WAS 1PPD Past Drug Use History: None Reported Additional Drug Use History / Comment(s): 2 drinks/ day-red wine and beer - Past Family History Mother Family Medical History: No Reported History Medications and Allergies Home Medications Medication Instructions Recorded Confirmed Type Levothyroxine Sodium [Synthroid] 25 mcg PO DAILY 08/16/14 12/30/22 History Metoprolol Tartrate [Lopressor] 25 mg PO BID 08/16/14 12/30/22 History amLODIPine [Norvasc] 5 mg PO DAILY 08/16/14 12/30/22 History Ezetimibe [Zetia] 10 mg PO DAILY 12/01/19 12/30/22 History Sodium Bicarbonate 325 mg PO MOWEFR 12/23/22 12/30/22 History Acetaminophen Tab [Tylenol] 650 mg PO Q6HR PRN tab 12/25/22 12/30/22 Rx Aspirin 81 mg PO DAILY #30 tab 12/25/22 12/30/22 Rx Atorvastatin [Lipitor] 40 mg PO DAILY #30 tablet 12/25/22 12/30/22 Rx Clopidogrel [Plavix] 75 mg PO DAILY 30 Days #30 tab 12/25/22 12/30/22 Rx Allergies Allergy/AdvReac Type Severity Reaction Status Date / Time Yeast Allergy Unknown Verified 12/30/22 20:30 Environmental-mold,dustmites,pollen Allergy sinus Uncoded 12/30/22 20:30 symptoms Physical Exam Vitals: Vital Signs Temp Pulse Pulse Resp BP BP Pulse Ox 12/31/22 07:48 96 12/31/22 04:00 97.8 F 92 20 113/76 96 12/31/22 03:22 82 18 110/82 97 12/30/22 22:10 90/70 100 12/30/22 21:40 111 H 98 12/30/22 21:30 101 H 100/79 99 12/30/22 21:20 105 H 100/79 99 12/30/22 21:12 97.9 F 113 H 20 100/79 97 12/30/22 20:00 71/55 12/30/22 19:30 133 H 12/30/22 19:14 125 H 12/30/22 19:05 118 H 24 140/99 79 L Intake and Output 12/30/22 12/31/22 12/31/22 22:59 06:59 14:59 Intake Total 8.547 Balance 8.547 Intake: Intake, IV Titration 8.547 Amount Heparin Sod,Pork in 0.45% 8.547 NaCl 25,000 unit In 0.45 % NaCl 1 250ml.bag @ 9.8 UNITS/KG/HR 4.579 mls/hr IV .Q24H [facility] Rx#: [id number] Other: Voiding Method External Catheter Weight 46.72 kg 46.72 kg Results CBC & Chem 7: 12/31/22 02:26 12/30/22 19: Labs: Abnormal Lab Results - Last 24 Hours (Table) 12/30/22 12/30/22 12/30/22 Range/Units 19: 19: 19: Lymphocytes # (1.0-4.8) k/uL APTT 21.6 L (22.0-30.0) sec Sodium 127 L (137-145) mmol/L Chloride 91 L (98-107) mmol/L Carbon Dioxide 21 L (22-30) mmol/L Creatinine 0.44 L (0.52-1.04) mg/dL Glucose 131 H (74-99) mg/dL Plasma Lactic Acid Bhanu 4.2 H* (0.7-2.0) mmol/L Troponin I (0.000-0.034) ng/mL 12/30/22 12/30/22 12/31/22 Range/Units 19: 22: 01:45 Lymphocytes # (1.0-4.8) k/uL APTT (22.0-30.0) sec Sodium (137-145) mmol/L Chloride (98-107) mmol/L Carbon Dioxide (22-30) mmol/L Creatinine (0.52-1.04) mg/dL Glucose (74-99) mg/dL Plasma Lactic Acid Bhanu (0.7-2.0) mmol/L Troponin I 0.039 H* 0.401 H* 0.500 H* (0.000-0.034) ng/mL 12/31/22 12/31/22 Range/Units 02: 02: Lymphocytes # 0.9 L (1.0-4.8) k/uL APTT 40.9 H (22.0-30.0) sec Sodium (137-145) mmol/L Chloride (98-107) mmol/L Carbon Dioxide (22-30) mmol/L Creatinine (0.52-1.04) mg/dL Glucose (74-99) mg/dL Plasma Lactic Acid Bhanu (0.7-2.0) mmol/L Troponin I (0.000-0.034) ng/mL Thrombosis Risk Factor Assmnt - Choose All That Apply Each Factor Represents 1 point: Medical pt on bed rest, Serious lung disease incl. pneumonia (< 1month), Swollen legs (current), Varicose veins Other Risk Factors: Yes Each Risk Factor Represents 3 Points: Age 75 years or older Other congenital or acquired thrombophilia - If yes, enter type in comment: No Thrombosis Risk Factor Assessment Total Risk Factor Score: 7 Thrombosis Risk Factor Assessment Level: High Risk
--- NOTE | 2022-12-31 12:58 | CONS ---
CONSULTATION HISTORY OF PRESENT ILLNESS: This is an 82-year-old lady with a history of hypertension, hypothyroidism, hyperlipidemia, and she presented to the hospital yesterday evening with complaints of increasing shortness of breath. Apparently, her neighbor brought her to the hospital and she is known to have history of COPD. She used to smoke before. She quit smoking about 15 years ago. She did not have any chest discomfort. However, her troponin has been elevated. She also had elevated D-dimer and she received contrast for CT angio which revealed no evidence of pulmonary embolism. This lady has history of previous PCI, details are unavailable at this time. She is not a very good historian and her family is also not able to help much with the history. EKG revealed sinus mechanism with poor R-wave progression and nonspecific ST abnormality. Another EKG revealed sinus mechanism with what seems to be some short runs of atrial fibrillation. She was here recently with an episode of CVA with expressive aphasia, right facial droop, and was found to have a chronic internal carotid occlusion on the right with a left carotid endarterectomy. She was placed on aspirin and Plavix and discharged. Apparently, during her hospitalization here, she did not have any evidence of atrial fibrillation, but an EKG obtained yesterday at about midnight suggests short runs of atrial fibrillation. She is now in sinus rhythm resting comfortably. Echo that was performed on December 25, 2022, revealed preserved systolic function. On arrival, her troponin was normal, but then it went up to 0.5. She is resting comfortably and her shortness of breath has improved. BNP is not significantly elevated. There is a question of pneumonia on the CT angiogram. PAST MEDICAL HISTORY: 1. Recent CVA with fair recovery. 2. Hypertension. 3. Hyperlipidemia. 4. History of smoking and COPD. 5. Question of previous PCI, but details are unavailable at this time. PHYSICAL EXAMINATION: VITAL SIGNS: Blood pressure is 130/70; pulse rate is about 90, appears to be regular. HEENT: Unremarkable. Fundus was not examined by me. NECK: Supple. There is JVD of 1 cm. No carotid bruit on the right, soft carotid bruit on the left. HEART: Reveals S1 and S2 with a short systolic murmur. LUNGS: Bilateral diminished air entry. ABDOMEN: Soft, nontender. EXTREMITIES: Lower extremities reveal diminished pulses. CENTRAL NERVOUS SYSTEM: Grossly no focal deficits. There is generalized weakness. IMPRESSION: 1. Probable [id number] myocardial infarction without any significant chest pain at this time and hemodynamically stable on IV heparin. 2. Recent CVA. 3. Hypertension. 4. Hypercholesterolemia. 5. Past history of smoking with chronic obstructive pulmonary disease. RECOMMENDATIONS: I recommend that we continue intravenous heparin at this time. I will obtain echocardiogram. Check a procalcitonin level. Give 1 dose of Lasix 40 mg IV push. Check a BMP in the morning. Possible cardiac cath in 24 to 48 hours. Discussed my thoughts in detail with the patient and family members. MMODL / IJN: [id number] /
--- NOTE | 2022-12-31 14:05 | P.CNPUL ---
History of Present Illness Consult date: 12/31/22 History of present illness: This is an 82-year-old. Patient was brought into the hospital because of shortness of breath. She was recently in the hospital for workup for a stroke. The patient presented earlier with symptoms of aphasia. She was found to have hyponatremia. At the same time, the patient was seen by neurology and she underwent a neurology underwent extensive workup including MRI as well as 2-D echo with bubble study which was negative. Patient was also evaluated by vascular surgery with no plans for surgical intervention and recommending outpa tient follow-up. The patient was discharged on a combination of aspirin and Plavix. During this current admission, the patient was found to be in A. fib RVR and the heart rate was around 120. It seems that she has converted back into normal sinus rhythm. She has no chest pain. She has no cough or sputum production. No hemoptysis or pleurisy. No orthopnea. No paroxysmal nocturnal dyspnea. The patient's had a chest x-ray that showed bilateral pleural effusion and pulmonary vessel congestion. CT angiogram showed no evidence of any pulmonary embolism. There is bilateral pleural effusion and some depending atelectatic changes in lung bases. The patient was given a dose of Lasix. The proBNP level was at 1670. Troponins were 0.4 and 0.5 respectively. The viral screen was negative. Legionella urine antigen was negative. The white cell count was at 7.8 with a hemoglobin 12.4. Sodium level is at 127 and the potassium levels at 4.5. The patient was covered with antibiotics. The patient was started on IV heparin. The patient is currently on oxygen and she is at 2 L with a pulse ox of 98%. She denies having any specific complaints. She was placed on IV Rocephin and Zithromax as an empiric antibiotic coverage. Review of Systems Constitutional: Reports as per HPI Eyes: denies as per HPI, denies blurred vision, denies bulging eye, denies decreased vision, denies diplopia, denies discharge, denies dry eye, denies irritation, denies itching, denies pain, denies photophobia, denies loss of peripheral vision, denies loss of vision, denies tunnel vision/blind spots Ears: deny: decreased hearing, ear discharge, earache, tinnitus Ears, nose, mouth and throat: Reports as per HPI Breasts: absent: as per HPI, change in shape, gynecomastia, masses, nipple discharge, pain, skin changes, swelling Cardiovascular: Reports decreased exercise tolerance, Reports dyspnea on exertion, Reports irregular heart beat Respiratory: Reports dyspnea Gastrointestinal: Reports as per HPI Genitourinary: Reports as per HPI Menstruation: Reports as per HPI Musculoskeletal: Reports as per HPI Musculoskeletal: absent: ankle pain, ankle stiffness, ankle swelling Integumentary: Reports as per HPI Neurological: Reports as per HPI Psychiatric: Reports as per HPI Endocrine: Reports as per HPI Hematologic/Lymphatic: Reports as per HPI Allergic/Immunologic: Reports as per HPI Past Medical History Past Medical History: GERD/Reflux, Hyperlipidemia, Hypertension, Thyroid Disorder Additional Past Medical History / Comment(s): ABD PAIN. LOST APPETITE, EATING CAUSES PAIN. CHOL.-DIET CONTROLLED History of Any Multi-Drug Resistant Organisms: None Reported Past Surgical History: Heart Catheterization With Stent, Orthopedic Surgery Additional Past Surgical History / Comment(s): LT CAROTID ENDARTERECTOMY. LT SHOULDER SURGERY. LT ANKLE SURGERY WITH PLATE & SCREWS IN. COLONOSCOPY, A NGIOGRAM, Stent bilat.legs. Past Anesthesia/Blood Transfusion Reactions: No Reported Reaction Date of Last Stent Placement:: 2004 Past Psychological History: No Psychological Hx Reported Smoking Status: Former smoker Past Alcohol Use History: Occasional Additional Past Alcohol Use History / Comment(s): STARTED SMOKING AGE 18(1961) AND QUIT 2001- WAS 1PPD Past Drug Use History: None Reported Additional Drug Use History / Comment(s): 2 drinks/ day-red wine and beer - Past Family History Mother Family Medical History: No Reported History Medications and Allergies Home Medications Medication Instructions Recorded Confirmed Type Levothyroxine Sodium [Synthroid] 25 mcg PO DAILY 08/16/14 12/30/22 History Metoprolol Tartrate [Lopressor] 25 mg PO BID 08/16/14 12/30/22 History amLODIPine [Norvasc] 5 mg PO DAILY 08/16/14 12/30/22 History Ezetimibe [Zetia] 10 mg PO DAILY 12/01/19 12/30/22 History Sodium Bicarbonate 325 mg PO MOWEFR 12/23/22 12/30/22 History Acetaminophen Tab [Tylenol] 650 mg PO Q6HR PRN tab 12/25/22 12/30/22 Rx Aspirin 81 mg PO DAILY #30 tab 12/25/22 12/30/22 Rx Atorvastatin [Lipitor] 40 mg PO DAILY #30 tablet 12/25/22 12/30/22 Rx Clopidogrel [Plavix] 75 mg PO DAILY 30 Days #30 tab 12/25/22 12/30/22 Rx Allergies Allergy/AdvReac Type Severity Reaction Status Date / Time Yeast Allergy Unknown Verified 12/30/22 20:30 Environmental-mold,dustmites,pollen Allergy sinus Uncoded 12/30/22 20:30 symptoms Physical Exam Vitals: Vital Signs Temp Pulse Pulse Resp BP BP Pulse Ox 12/31/22 08:00 94 16 96/62 98 12/31/22 07:48 96 12/31/22 04:00 97.8 F 92 20 113/76 96 12/31/22 03:22 82 18 110/82 97 12/30/22 22:10 90/70 100 12/30/22 21:40 111 H 98 12/30/22 21:30 101 H 100/79 99 12/30/22 21:20 105 H 100/79 99 12/30/22 21:12 97.9 F 113 H 20 100/79 97 12/30/22 20:00 71/55 12/30/22 19:30 133 H 12/30/22 19:14 125 H 12/30/22 19:05 118 H 24 140/99 79 L Intake and Output 12/30/22 12/31/22 12/31/22 22:59 06:59 14:59 Intake Total 8.547 0 Balance 8.547 0 Intake: Intake, IV Titration 8.547 Amount Heparin Sod,Pork in 0.45% 8.547 NaCl 25,000 unit In 0.45 % NaCl 1 250ml.bag @ 9.8 UNITS/KG/HR 4.579 mls/hr IV .Q24H [facility] Rx#: [id number] Oral 0 Other: Voiding Method External Catheter Weight 46.72 kg 46.72 kg Patient is currently calm and comfortable and she is on O2 at 2 L nasal cannula Head exam was generally normal. There was no scleral icterus or corneal arcus. Mucous membranes were moist. Neck was supple and without jugular venous distension, thyromegaly, or carotid bruits. Carotids were easily palpable bilaterally. There was no adenopathy. Lungs sounds are diminished in lung bases bilaterally otherwise clear Cardiac exam revealed the PMI to be normally situated and sized. The rhythm was regular and no extrasystoles were noted during several minutes of auscultation. The first and second heart sounds were normal and physiologic splitting of the second heart sound was noted. There were no murmurs, rubs, clicks, or gallops. Abdominal exam revealed normal bowel sounds. The abdomen was soft, non-tender, and without masses, organomegaly, or appreciable enlargement of the abdominal aorta. Examination of the extremities revealed easily palpable radial, femoral and pedal pulses. There was no cyanosis, clubbing or edema. Examination of the skin revealed no evidence of significant rashes, suspicious appearing nevi or other concerning lesions. Neurologically, the patient is awake and alert and the patient does not have any focal neurological deficit. Cranial nerves are essentially intact. Results - Laboratory Findings CBC and BMP: 12/31/22 02:26 12/30/22 19:26 PT/INR, D-dimer PT 9.9 sec (9.0-12.0) 12/30/22: INR 0.9 (<1.2) 12/30/22 19:26 Abnormal lab findings: Abnormal Labs 12/30/22 12/30/22 12/30/22 19:26 19:26 19:26 Lymphocytes # APTT 21.6 L Sodium 127 L Chloride 91 L Carbon Dioxide 21 L Creatinine 0.44 L Glucose 131 H Plasma Lactic Acid Bhanu 4.2 H* Troponin I 12/30/22 12/30/22 12/31/22 19:26 22:22 01:45 Lymphocytes # APTT Sodium Chloride Carbon Dioxide Creatinine Glucose Plasma Lactic Acid Bhanu Troponin I 0.039 H* 0.401 H* 0.500 H* 12/31/22 12/31/22 02:26 02:26 Lymphocytes # 0.9 L APTT 40.9 H Sodium Chloride Carbon Dioxide Creatinine Glucose Plasma Lactic Acid Bhanu Troponin I - Diagnostic Findings Chest x-ray: image reviewed CT scan - chest: image reviewed Assessment and Plan Plan: Acute hypoxic respiratory failure currently on 2 L of oxygen nasal cannula Shortness of breath on that investigation. CT antigram showed no evidence of any pulmonary embolism. There is bilateral pleural effusions along with dependent atelectatic change in lung bases. I highly doubt possibility of a bacterial pneumonia. I favor a component of CHF which contributed to the patient's shortness of breath. Noted the patient presented with A. fib/RVR and the patient has also elevated proBNP level, previous echo cardiac exam shows a preserved LV function and the patient is responding nicely to diuretics. Paroxysmal A. 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 She was consulted with vascular surgery. Is possible that her previous presentation was also due to paroxysmal A. fib. Plan Continue aspirin and Plavix Continue IV heparin Cardiology consultation Wean down FiO2 as tolerated to maintain a saturation above 90% Monitor sodium level Antibiotic coverage is essentially empiric, pneumonia is doubtful
[2022-12-31] MEDS ORDERED: ONDANSETRON 4 MG/2 ML VIAL IVP STA (18:31)
[2022-12-31] MEDS: ACETAMINOPHEN TAB 325 MG TAB PO PRN (19:08)
[2022-12-31] MEDS: METOPROLOL TARTRATE 25 MG TAB PO SCH (20:08)
[2022-12-31] MEDS: MELATONIN 3 MG TABLET PO PRN (20:46)
[2023-01-01] MEDS: HEPARIN SOD,PORK IN 0.45% NACL 25,000 UNIT in 0.45% NACL 1 250ML.BAG IV SCH (02:48)
[2023-01-01] MEDS: SODIUM CHLORIDE 0.9% 1,000 ML IV SCH (02:48)
[2023-01-01] MEDS: LEVOTHYROXINE 25 MCG TAB PO SCH (06:44)
[2023-01-01] MEDS: AZITHROMYCIN 500 MG in SODIUM CHLORIDE 0.9% 250 ML IVPB SCH (08:17)
[2023-01-01] MEDS: METOPROLOL TARTRATE 25 MG TAB PO SCH ×2 (08:19→19:52)
[2023-01-01] MEDS: CLOPIDOGREL 75 MG TAB PO SCH (08:19)
[2023-01-01] MEDS: ASPIRIN 81 MG PO SCH (08:19)
[2023-01-01] MEDS: EZETIMIBE 10 MG TAB PO SCH (08:19)
[2023-01-01] MEDS: ATORVASTATIN 40 MG TAB PO SCH (08:19)
--- NOTE | 2023-01-01 10:43 | XR ---
EXAMINATION TYPE: XR chest 2V DATE OF EXAM: 01/01/2023 COMPARISON: 12/30/2022 HISTORY: Shortness of breath TECHNIQUE: Frontal and lateral views of the chest are obtained. FINDINGS: Scattered senescent parenchymal changes noted. Hyperinflation compatible with COPD. Pulmonary venous congestion and interstitial edema has improved in the interval. There are also small effusions and cardiomegaly. Mitral annular calcifications seen. Underlying superimposed pneumonia is not excluded. Correlate clinically and progress studies are recommended. Mediastinal structures are stable and grossly unremarkable. No evidence for hilar prominence. Degenerative changes dorsal spine. IMPRESSION: 1. Pulmonary venous congestion and interstitial edema has improved in the interval. There are also sm all effusions and cardiomegaly. Mitral annular calcifications seen. Underlying superimposed pneumonia is not excluded. Correlate clinically and progress studies are recommended.
--- NOTE | 2023-01-01 11:45 | P.PN ---
Subjective Progress Note Date: 01/01/23 This is an 82-year-old. Patient was brought into the hospital because of shortness of breath. She was recently in the hospital for workup for a stroke. The patient presented earlier with symptoms of aphasia. She was found to have hyponatremia. At the same time, the patient was seen by neurology and she underwent a neurology underwent extensive workup including MRI as well as 2-D echo with bubble study which was negative. Patient was also evaluated by vascular surgery with no plans for surgical intervention and recommending outpatient follow-up. The patient was discharged on a combination of aspirin and Plavix. During this current admission, the patient was found to be in A. fib RVR and the heart rate was around 120. It seems that she has converted back into normal sinus rhythm. She has no chest pain. She has no cough or sputum production. No hemoptysis or pleurisy. No orthopnea. No paroxysmal nocturnal dyspnea. The patient's had a chest x-ray that showed bilateral pleural effusion and pulmonary vessel congestion. CT angiogram showed no evidence of any pulmonary embolism. There is bilateral pleural effusion and some depending atelectatic changes in lung bases. The patient was given a dose of Lasix. The proBNP level was at 1670. Troponins were 0.4 and 0.5 respectively. The viral screen was negative. Legionella urine antigen was negative. The white cell count was at 7.8 with a hemoglobin 12.4. Sodium level is at 127 and the potassium levels at 4.5. The patient was covered with antibiotics. The patient was started on IV heparin. The patient is currently on oxygen and she is at 2 L with a pulse ox of 98%. She denies having any specific complaints. She was placed on IV Rocephin and Zithromax as an empiric antibiotic coverage. On today's evaluation of 01/01/2023, I'm seeing the patient for a follow-up. She is currently on 2 L of Oxymizer nasal cannula. She was given an additional dose of Lasix by cardiology. She did have a elevated troponins and the patient is being considered for a cardiac catheterization. A follow-up chest x-ray was done today and it showed cardiomegaly and pulmonary vessel congestion which is improved and there is also small bilateral pleural effusion the lung bases. The patient remains on IV heparin. The patient remains on empiric antibiotic coverage with accommodation of Rocephin and Zithromax. The bloodwork from yesterday was noted. Troponin peaked at 0.5. Pronestyl level is at 0.17. Legionella urine antigen is negative. Objective - Vital Signs Vital signs: Vital Signs Temp 97.7 F 01/01/23 08:00 Pulse 87 01/01/23 08:00 Resp 18 01/01/23 08:00 BP 145/84 01/01/23 08:00 Pulse Ox 94 L 01/01/23 08:00 FiO2 Intake & Output 12/31/22 01/01/23 01/01/23 18:59 06:59 18:59 Intake Total 326.952 109.866 242.577 Balance 326.952 109.866 242.577 Intake: IV 10 Invasive Line 1 10 Intake, IV Titration 46.952 109.866 52.577 Amount Heparin Sod,Pork in 0.45% 46.952 109.866 52.577 NaCl 25,000 unit In 0.45 % NaCl 1 250ml.bag @ 9.8 UNITS/KG/HR 4.579 mls/hr IV .Q24H [facility] Rx#: [id number] Oral 280 180 Other: Voiding Method Toilet - Exam Patient is currently calm and comfortable and she is on O2 at 2 L nasal cannula Head exam was generally normal. There was no scleral icterus or corneal arcus. Mucous membranes were moist. Neck was supple and without jugular venous distension, thyromegaly, or carotid bruits. Carotids were easily palpable bilaterally. There was no adenopathy. Lungs sounds are diminished in lung bases bilaterally otherwise clear Cardiac exam revealed the PMI to be normally situated and sized. The rhythm was regular and no extrasystoles were noted during several minutes of auscultation. The first and second heart sounds were normal and physiologic splitting of the second heart sound was noted. There were no murmurs, rubs, clicks, or gallops. Abdominal exam revealed normal bowel sounds. The abdomen was soft, non-tender, and without masses, organomegaly, or appreciable enlargement of the abdominal aorta. Examination of the extremities revealed easily palpable radial, femoral and pedal pulses. There was no cyanosis, clubbing or edema. Examination of the skin revealed no evidence of significant rashes, suspicious appearing nevi or other concerning lesions. Neurologically, the patient is awake and alert and the patient does not have any focal neurological deficit. Cranial nerves are essentially intact. - Labs CBC & Chem 7: 12/31/22 02:26 12/30/22 19:26 Labs: Abnormal Lab Results - Last 24 Hours (Table) 12/31/22 01/01/23 Range/Units 02:26 01:55 APTT 42.0 H (22.0-30.0) sec Procalcitonin 0.17 H (0.02-0.09) ng/mL Assessment and Plan Plan: Acute hypoxic respiratory failure currently on 2 L of oxygen nasal cannula, chest x-ray showing improvement in the pulmonary vessel congestion and the patient continues to smoke but the pleural effusions Shortness of breath on that investigation. CT antigram showed no evidence of any pulmonary embolism. There is bilateral pleural effusions along with dependent atelectatic change in lung bases. I highly doubt possibility of a bacterial pneumonia. I favor a component of CHF which contributed to the patient's shortness of breath. Noted the patient presented with A. fib/RVR and the patient has also elevated proBNP level, previous echo cardiac exam shows a preserved LV function and the patient is responding nicely to diuretics. Addition to the Lasix was given by cardiology Suspect non-ST segment elevation myocardial infarction, without any chest pain. Patient remains on IV heparin. Paroxysmal A. 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 She was consulted with vascular surgery. Is possible that her previous presentation was also due to paroxysmal A. fib. Plan Continue aspirin and Plavix Continue IV heparin Cardiology consultation initiated Possible cardiac catheterization Wean down FiO2 as tolerated to maintain a saturation above 90%, currently on 2 L Monitor sodium level, labs from today is pending Antibiotic coverage is essentially empiric, pneumonia is doubtful
[2023-01-01] MEDS ORDERED: FUROSEMIDE 40 MG TAB PO STA (12:14)
--- NOTE | 2023-01-01 12:14 | P.PN ---
Subjective Progress Note Date: 01/01/23 * 82-year-old lady with past medical history significant for hypertension, hypothyroidism who presented to the ER because of shortness of breath. Patient was recently admitted to the hospital for stroke workup, evaluated by neurology underwent extensive workup including MRI as well as 2-D echo with bubble study which was negative. Patient was also evaluated by vascular garcia rgeli with no plans for surgical intervention and recommending outpatient follow-up. Patient stated she was all right yesterday when she started noticing sudden onset of shortness of breath. Shortness of breath was present at rest, not associated with any chest pain. Patient was complaining of p alpitations. Denies any swelling of feet. Denied any orthopnea or PND. Patient recently saw her PCP who was concerned about patient having A. fib but at that time EKG did not reveal any arrhythmia. Because of shortness of breath, patient came to the ER * Initial lab work done in the ER showed WBC 9.9, hemoglobin 14.5, platelet count 14, sodium 127, potassium 4.5, BUN 7, creatinine 0.44, lactate 4.2 * EKG done in the ER showed heart rate of 127, QRS 94, no ST segment elevation seen, no P waves seen. * Chest x-ray done in the ER showed cardiomegaly, pulmonary congestion and bilateral pleural effusions * CTA chest done showed no PE, dependent airspace consolidations consistent with multifocal pneumonia. Small bilateral parapneumonic effusions * 01/01: Patient seen and evaluated bedside. Seen by pulmonary medicine and cardiology. IV fluids discontinued continue patient on diuresis continue empiric antibiotic Rocephin and azithromycin will wean down on oxygen as tolerated Objective - Vital Signs Vital signs: Vital Signs Temp 97.7 F 01/01/23 08:00 Pulse 87 01/01/23 08:00 Resp 18 01/01/23 08:00 BP 145/84 01/01/23 08:00 Pulse Ox 94 L 01/01/23 08:00 FiO2 Intake & Output 12/31/22 01/01/23 01/01/23 18:59 06:59 18:59 Intake Total 326.952 109.866 242.577 Balance 326.952 109.866 242.577 Intake: IV 10 Invasive Line 1 10 Intake, IV Titration 46.952 109.866 52.577 Amount Heparin Sod,Pork in 0.45% 46.952 109.866 52.577 NaCl 25,000 unit In 0.45 % NaCl 1 250ml.bag @ 9.8 UNITS/KG/HR 4.579 mls/hr IV .Q24H [facility] Rx#: [id number] Oral 280 180 Other: Voiding Method Toilet Toilet - Exam PHYSICAL EXAMINATION: GENERAL: The patient is alert and oriented x3, , ill appearance nasal cannula in place. HEENT: Pupils are round and equally reacting to light. EOMI. PULMONARY: Decreased breath sounds bilaterally, rhonchi audible ABDOMEN: Soft, nontender, nondistended, normoactive bowel sounds. No palpable organomegaly. MUSCULOSKELETAL: No joint swelling or deformity. EXTREMITIES: No cyanosis, clubbing, or pedal edema. NEUROLOGICAL: Gross neurological examination did not reveal any focal deficits. SKIN: Oozing noted on skin - Labs CBC & Chem 7: 12/31/22 02:26 12/30/22 19:26 Labs: Abnormal Lab Results - Last 24 Hours (Table) 12/31/22 01/01/23 Range/Units 02:26 01:55 APTT 42.0 H (22.0-30.0) sec Procalcitonin 0.17 H (0.02-0.09) ng/mL Assessment and Plan Assessment: Assessment and plan * Acute hypoxic respiratory failure * Acute exacerbation of congestive heart failure diastolic dysfunction * Non-ST elevated PA * Paroxysmal atrial fibrillation with rapid ventricular response * Multifocal pneumonia * Hypertension * Hyponatremia * Carotid artery stenosis, history of left carotid endarterectomy * Hypothyroid * Consult obtained from pulmonary medicine and cardiology * In regards to non-ST elevated PA and congestive heart failure patient treated with IV heparin. Received 1 dose of Lasix and repeat or additional dose IV fluids discontinued continue to monitor intake and output * In regards to carotid endarterectomy continue patient on aspirin, Lipitor, Plavix * In regards to multifocal pneumonia continue Rocephin and azithromycin. Follow up on CRP. Pro-calcitonin levels serum Legionella negative
--- NOTE | 2023-01-01 12:57 | CA ---
Transthoracic Echo Report Name: Ekaterina Robertson Age: 82 Gender: F : 1940 Exam Date: 01/01/2023 09:18 Exam Location: [facility] Ht (in): 59 Wt (lb): 103 Ordering Physician: Ishaan Vale MD ([id number]) Attending/Referring Phys: Mailing Machine Operator Ronen Apple Procedure CPT: Indications: LV function Cardiac Hx: Technical Quality: Fair Contrast 1: Total Dose (mL): Contrast 2: Total Dose (mL): MEASUREMENTS (Male / Female) Normal Values 2D ECHO LV Diastolic Diameter PLAX 3.4 cm 4.2 - 5.9 / 3.9 - 5.3 cm LV Systolic Diameter PLAX 3.0 cm IVS Diastolic Thickness 1.1 cm 0.6 - 1.0 / 0.6 - 0.9 cm LVPW Diastolic Thickness 1.3 cm 0.6 - 1.0 / 0.6 - 0.9 cm LV Relative Wall Thickness 0.7 LV Diastolic Volume MOD BP 29.7 cm??? 67 - 155 / 56 - 104 cm??? LV Systolic Volume MOD BP 19.0 cm??? 22 - 58 / 19 - 49 cm??? LV Ejection Fraction MOD BP 36.2 % >= 55 % LV Cardiac Index MOD BP 615.8 cm???/min???m??? LV Diastolic Volume MOD 4C 34.1 cm??? LV Systolic Volume MOD 4C 21.5 cm??? LV Ejection Fraction MOD 4C 37.0 % LV Cardiac Index MOD 4C 722.4 cm???/min???m??? LV Diastolic Length 4C 5.6 cm LV Systolic Length 4C 5.3 cm LV Diastolic Volume MOD 2C 26.0 cm??? LV Systolic Volume MOD 2C 16.5 cm??? LV Ejection Fraction MOD 2C 36.4 % LV Cardiac Index MOD 2C 541.0 cm???/min???m??? LV Diastolic Length 2C 5.6 cm LV Systolic Length 2C 5.4 cm FINDINGS Left Ventricle Normal LV size and wall thickness. Left ventricular ejection fraction is estimated at 35-40 %. Global hypokinesis Right Ventricle Right Atrium Left Atrium Mitral Valve Moderate mitral annular calcification. Aortic Valve Tricuspid Valve Pulmonic Valve Pericardium Aorta CONCLUSIONS Moderate global hypokinesis with ejection fraction 35-40% Previewed by: Dr. Angelique Mejias MD (Electronically Signed) Final Date: 01 January 2023 12:55
[2023-01-01 12:58] LABS: HCT 36.8 % (34.0-46.0); HGB 12.1 gm/dL (11.4-16.0); Mean Platelet Volume 8.4; Platelet Count 275 k/uL (150-450); RBC 3.91 m/uL (3.80-5.40); RDW 14.1 % (11.5-15.5); WBC 6.7 k/uL (3.8-10.6)
[2023-01-01 13:00] LABS: ALT 33 U/L (4-34); AST 65 U/L (14-36); African American GFR (CKD) >90 (>60 ml/min/1.73 sqM); Alkaline Phosphatase 72 U/L (38-126); Anion Gap 10 mmol/L; Blood Urea Nitrogen 9 mg/dL (7-17); Carbon Dioxide 19 mmol/L (22-30); Chloride 98 mmol/L (98-107); Glucose 108 mg/dL (74-99); Non-African American GFR(CKD) >90 (>60 ml/min/1.73 sqM); Potassium 4.5 mmol/L (3.5-5.1); Sodium 127 mmol/L (137-145); Total Bilirubin 0.5 mg/dL (0.2-1.3); Total Protein 6.5 g/dL (6.3-8.2)
[2023-01-01] MEDS: ACETAMINOPHEN TAB 325 MG TAB PO PRN (13:24)
--- NOTE | 2023-01-01 14:21 | P.PN ---
Subjective Progress Note Date: 01/01/23 History of present illness: This is an 82-year-old female with history of hypertension, hypothyroidism, hy perlipidemia and presented to the hospital with increasing shortness of breath with known history of COPD and history of smoking. Patient's troponin was elevated but did not have any chest discomfort. Elevated d-dimer with out evidence of pulmonary embolism on CTA. Patient unable to provide much history. EKG was a sinus rhythm with possible short runs of atrial fibrillation but was in sinus rhythm at time of evaluation. Echocardiogram 12/25 revealed preserved systolic function. Troponins were elevated and repeat echocardiogram reveals moderate global hypokinesia with EF of 35-40%. . Physical examination: Gen: This is an 82-year-old female resting in bed and appears to be comfortable. No acute distress noted. VS: reviewed LUNGS: Clear to auscultation. No wheezes or rhonchi. No intercostal retractions. HEART: Regular rate and rhythm. Short systolic murmur. ABDOMEN: Soft No tenderness. EXTREMITIES: No pedal edema. No calf tenderness. NEUROLOGICAL: Patient is awake, alert. Assessment: Probable non-ST elevated myocardial infarction with out evidence of chest pain Recent CVA Hypertension Hypercholesterolemia Past history of smoking with COPD Plan: Continue IV heparin Continue other cardiac medications Patient is on IV antibiotics for possible pneumonia no aggressive workup such as cardiac catheterization planned at this time. Most likely patient will have follow-up once her pulmonary status is stabilized he will then be scheduled for outpatient testing. Further recommendations to follow based upon clinical course Nurse practitioner note has been reviewed, I agree with documented findings and plan of care. Patient was seen and examined. Objective - Vital Signs Vital signs: Vital Signs Temp 97.7 F 01/01/23 08:00 Pulse 87 01/01/23 08:00 Resp 18 01/01/23 08:00 BP 145/84 01/01/23 08:00 Pulse Ox 94 L 01/01/23 08:00 FiO2 Intake & Output 12/31/22 01/01/23 01/01/23 18:59 06:59 18:59 Intake Total 326.952 109.866 242.577 Balance 326.952 109.866 242.577 Intake: IV 10 Invasive Line 1 10 Intake, IV Titration 46.952 109.866 52.577 Amount Heparin Sod,Pork in 0.45% 46.952 109.866 52.577 NaCl 25,000 unit In 0.45 % NaCl 1 250ml.bag @ 9.8 UNITS/KG/HR 4.579 mls/hr IV .Q24H [facility] Rx#: [id number] Oral 280 180 Other: Voiding Method Toilet - Labs CBC & Chem 7: 01/01/23 11:59 01/01/23 11:59 Labs: Abnormal Lab Results - Last 24 Hours (Table) 12/31/22 01/01/23 Range/Units 02:26 01:55 APTT 42.0 H (22.0-30.0) sec Procalcitonin 0.17 H (0.02-0.09) ng/mL
[2023-01-01] MEDS ORDERED: ONDANSETRON 4 MG/2 ML VIAL IVP PRN (18:26)
[2023-01-01] MEDS: MELATONIN 3 MG TABLET PO PRN (19:52)
[2023-01-02] MEDS: HEPARIN SOD,PORK IN 0.45% NACL 25,000 UNIT in 0.45% NACL 1 250ML.BAG IV SCH (06:20)
[2023-01-02] MEDS: LEVOTHYROXINE 25 MCG TAB PO SCH (06:20)
[2023-01-02 07:54] LABS: HCT 35.3 % (34.0-46.0); HGB 11.8 gm/dL (11.4-16.0); MCHC 33.4 g/dL (31.0-37.0); Mean Platelet Volume 7.5; Platelet Count 288 k/uL (150-450); RBC 3.79 m/uL (3.80-5.40); RDW 13.8 % (11.5-15.5); WBC 4.7 k/uL (3.8-10.6)
[2023-01-02] MEDS: CLOPIDOGREL 75 MG TAB PO SCH (07:57)
[2023-01-02] MEDS: METOPROLOL TARTRATE 25 MG TAB PO SCH ×2 (07:57→20:35)
[2023-01-02] MEDS: SODIUM BICARBONATE TAB 650 MG TAB PO SCH (07:57)
[2023-01-02] MEDS: ASPIRIN 81 MG PO SCH (07:57)
[2023-01-02] MEDS: EZETIMIBE 10 MG TAB PO SCH (07:57)
[2023-01-02] MEDS: ATORVASTATIN 40 MG TAB PO SCH (07:57)
[2023-01-02] MEDS: AZITHROMYCIN 500 MG in SODIUM CHLORIDE 0.9% 250 ML IVPB SCH (07:58)
[2023-01-02 08:02] LABS: African American GFR (CKD) >90 (>60 ml/min/1.73 sqM); Anion Gap 7 mmol/L; Blood Urea Nitrogen 6 mg/dL (7-17); Calcium 9.2 mg/dL (8.4-10.2); Carbon Dioxide 24 mmol/L (22-30); Chloride 99 mmol/L (98-107); Glucose 110 mg/dL (74-99); Non-African American GFR(CKD) >90 (>60 ml/min/1.73 sqM); Potassium 4.3 mmol/L (3.5-5.1); Sodium 130 mmol/L (137-145)
[2023-01-02 08:10] LABS: NT-Pro-B-Type Natriuretic Pept 5560 pg/mL
[2023-01-02 11:12] LABS: C Reactive Protein <0.5 mg/dL (<1.0)
--- NOTE | 2023-01-02 12:36 | P.PN ---
Subjective Progress Note Date: 01/02/23 * 82-year-old lady with past medical history significant for hypertension, hypothyroidism who presented to the ER because of shortness of breath. Patient was recently admitted to the hospital for stroke workup, evaluated by neurology underwent extensive workup including MRI as well as 2-D echo with bubble study which was negative. Patient was also evaluated by vascular garcia rgeli with no plans for surgical intervention and recommending outpatient follow-up. Patient stated she was all right yesterday when she started noticing sudden onset of shortness of breath. Shortness of breath was present at rest, not associated with any chest pain. Patient was complaining of p alpitations. Denies any swelling of feet. Denied any orthopnea or PND. Patient recently saw her PCP who was concerned about patient having A. fib but at that time EKG did not reveal any arrhythmia. Because of shortness of breath, patient came to the ER * Initial lab work done in the ER showed WBC 9.9, hemoglobin 14.5, platelet count 14, sodium 127, potassium 4.5, BUN 7, creatinine 0.44, lactate 4.2 * EKG done in the ER showed heart rate of 127, QRS 94, no ST segment elevation seen, no P waves seen. * Chest x-ray done in the ER showed cardiomegaly, pulmonary congestion and bilateral pleural effusions * CTA chest done showed no PE, dependent airspace consolidations consistent with multifocal pneumonia. Small bilateral parapneumonic effusions * 01/01: Patient seen and evaluated bedside. Seen by pulmonary medicine and cardiology. IV fluids discontinued continue patient on diuresis continue empiric antibiotic Rocephin and azithromycin will wean down on oxygen as tolerated * 01/02: Patient seen and evaluated bedside. Patient is alert and oriented 4. Shortness of breath is improved. Weaned down to room air family at bedside. Discussed with son and daughter at bedside Objective - Vital Signs Vital signs: Vital Signs Temp 97.9 F 01/02/23 07:47 Pulse 95 01/02/23 07:47 Resp 18 01/02/23 07:47 BP 149/70 01/02/23 07:47 Pulse Ox 95 01/02/23 07:55 FiO2 Intake & Output 01/01/23 01/02/23 01/02/23 18:59 06:59 18:59 Intake Total 627.444 140.402 526.313 Balance 627.444 140.402 526.313 Weight 50 kg Intake: IV 10 Invasive Line 1 10 Intake, IV Titration 97.444 140.402 286.313 Amount Azithromycin 500 mg In 250 Sodium Chloride 0.9% 250 ml @ 250 mls/hr IVPB [facility] Rx#:[id number] Heparin Sod,Pork in 0.45% 97.444 140.402 36.313 NaCl 25,000 unit In 0.45 % NaCl 1 250ml.bag @ 9.8 UNITS/KG/HR 4.579 mls/hr IV .Q24H [facility] Rx#: [id number] Oral 520 240 Other: Voiding Method Toilet Toilet Toilet # Voids 2 1 # Bowel Movements 1 - Exam PHYSICAL EXAMINATION: GENERAL: The patient is alert and oriented x3, , ill appearance nasal cannula removed HEENT: Pupils are round and equally reacting to light. EOMI. PULMONARY: Decreased breath sounds bilaterally, rhonchi audible ABDOMEN: Soft, nontender, nondistended, normoactive bowel sounds. No palpable organomegaly. MUSCULOSKELETAL: No joint swelling or deformity. EXTREMITIES: No cyanosis, clubbing, or pedal edema. NEUROLOGICAL: Gross neurological examination did not reveal any focal deficits. SKIN: Oozing noted on skin - Labs CBC & Chem 7: 01/02/23 07:25 01/02/23 07:25 Labs: Abnormal Lab Results - Last 24 Hours (Table) 01/01/23 01/01/23 01/01/23 Range/Units 11:59 11:59 19:24 RBC (3.80-5.40) m/uL APTT 90.8 H 66.2 H (22.0-30.0) sec Sodium 127 L (137-145) mmol/L Carbon Dioxide 19 L (22-30) mmol/L BUN (7-17) mg/dL Creatinine 0.40 L (0.52-1.04) mg/dL Glucose 108 H (74-99) mg/dL AST 65 H (14-36) U/L Procalcitonin (0.02-0.09) ng/mL 01/02/23 01/02/23 01/02/23 Range/Units 07:25 07:25 07:25 RBC 3.79 L (3.80-5.40) m/uL APTT (22.0-30.0) sec Sodium 130 L (137-145) mmol/L Carbon Dioxide (22-30) mmol/L BUN 6 L (7-17) mg/dL Creatinine 0.44 L (0.52-1.04) mg/dL Glucose 110 H (74-99) mg/dL AST (14-36) U/L Procalcitonin 0.13 H (0.02-0.09) ng/mL 01/02/23 Range/Units 07:25 RBC (3.80-5.40) m/uL APTT 56.7 H (22.0-30.0) sec Sodium (137-145) mmol/L Carbon Dioxide (22-30) mmol/L BUN (7-17) mg/dL Creatinine (0.52-1.04) mg/dL Glucose (74-99) mg/dL AST (14-36) U/L Procalcitonin (0.02-0.09) ng/mL Microbiology - Last 24 Hours (Table) 12/31/22 01:50 Blood Culture - Preliminary Blood 12/31/22 01:28 Blood Culture - Preliminary Blood Assessment and Plan Assessment: Assessment and plan * Acute hypoxic respiratory failure * Acute exacerbation of congestive heart failure diastolic dysfunction * Non-ST elevated CT * Paroxysmal atrial fibrillation with rapid ventricular response * Multifocal pneumonia * Hypertension * Hyponatremia * Carotid artery stenosis, history of left carotid endarterectomy * Hypothyroid * Consult obtained from pulmonary medicine and cardiology * In regards to non-ST elevated CT and congestive heart failure patient was treated with IV heparin. Continue Lasix, aspirin, Plavix, Lipitor. Planned for cardiac catheterization to be determined by cardiology * In regards to carotid endarterectomy continue patient on aspirin, Lipitor, Plavix * In regards to multifocal pneumonia continue Rocephin and azithromycin day. Follow up on CRP. Pro-calcitonin levels minimally elevated, serum Legionella negative, QTC 427
--- NOTE | 2023-01-02 12:48 | CDI ---
Documentation Clarification Form Date: 01/02/2023 12:29:59 PM From: Amelia Monsivais RN CCDS Phone: [phone] Admit Date: 12/31/2022 01:14:00 AM Patient Name: Ekaterina Robertson Visit Number: [id number] Discharge Date: ATTENTION: The Clinical Documentation Specialists (CDI) and [facility] Coding Staff appreciate your assistance in clarifying documentation. Please respond to the clarification below the line at the bottom and electronically sign. The CDI & [facility] Coding staff will review the response and follow-up if needed. Please note: Queries are made part of the Legal Health Record. If you have any questions, please contact the author of this message via ITS. Dr. Tamara Casarez Sepsis is documented in the H&P, 01/01, but is not noted in subsequent documentation. Clarification is requested. History/Risk Factors: 82-year-old Female presents to the ED for respiratory distress. Medical History: GERD, HLD, HTN and Thyroid disorder. Clinical Indicators: VSS, 12/30: B/P 100/79; HR 113; Temp 97.9F; RR 20; SpO2 97% room air LABS, 12/30: Wbc 9.9; Lactic acid 4.2 CXR, 12/30: Cardiomegaly pulmonary vascular congestion and bilateral pleural effusions. CT chest w/ contrast: Dependent airspace consolidations, consistent with multifocal pneumonia/aspiration. Treatment: 12/31 Azithromycin IVPB x1; 12/31 Ceftriaxone IVPB x1; 01/01 Ceftriaxone IVPB Q24H x 4 bags. 01/01 Azithromycin IVPB Daily x 2 bags. 12/31 0.9NS 75cc/hr Please clarify if the Sepsis is: [ y] Sepsis confirmed, remains under treatment [ ] Sepsis ruled out [ ] Other condition, please specify [ ] Unable to determine (Template Last Revised: June 2020) MTDD
--- NOTE | 2023-01-02 12:55 | P.PN ---
Subjective Progress Note Date: 01/02/23 History of present illness: This is an 82-year-old female with history of hypertension, hypothyroidism, hy perlipidemia and presented to the hospital with increasing shortness of breath with known history of COPD and history of smoking. Patient's troponin was elevated but did not have any chest discomfort. Elevated d-dimer with out evidence of pulmonary embolism on CTA. Patient unable to provide much history. EKG was a sinus rhythm with possible short runs of atrial fibrillation but was in sinus rhythm at time of evaluation. Echocardiogram 12/25 revealed preserved systolic function. Troponins were elevated and repeat echocardiogram reveals moderate global hypokinesia with EF of 35-40%. 01/02 Patient is seen today in follow-up. She remains on a heparin drip. Repeat EKG ordered, sinus rhythm at 86 bpm. Repeat chest x-ray reveals pulmonary venous congestion and interstitial edema improved. Small effusions and cardiomegaly. Mitral annular calcification seen. Underlying superimposed pneumonia is not excluded. Heart rate is running in the 70s to 90s, blood pressure 149/70 Physical examination: Gen: This is an 82-year-old female resting in bed and appears to be comfortable. No acute distress noted. VS: reviewed LUNGS: Clear to auscultation. No wheezes or rhonchi. No intercostal r etractions. HEART: Regular rate and rhythm. Short systolic murmur. ABDOMEN: Soft No tenderness. EXTREMITIES: No pedal edema. No calf tenderness. NEUROLOGICAL: Patient is awake, alert. Assessment: Probable non-ST elevated myocardial infarction with out evidence of chest pain Recent CVA Hypertension Hypercholesterolemia Past history of smoking with COPD Plan: Discontinue IV heparin Continue other cardiac medications Start Lasix 20 mg IV every 8 hours a plan to change to oral tomorrow Patient is on IV antibiotics for possible pneumonia no aggressive workup such as cardiac catheterization planned at this time. Most likely patient will have follow-up once her pulmonary status is stabilized. She will then be scheduled for outpatient cardiac catheterization. Further recommendations to follow based upon clinical course Nurse practitioner note has been reviewed, I agree with documented findings and plan of care. Patient was seen and examined. Objective - Vital Signs Vital signs: Vital Signs Temp 97.9 F 01/02/23 07:47 Pulse 95 01/02/23 07:47 Resp 18 01/02/23 07:47 BP 149/70 09/13/23 07:47 Pulse Ox 95 01/02/23 07:55 FiO2 Intake & Output 01/01/23 01/02/23 01/02/23 18:59 06:59 18:59 Intake Total 627.444 140.402 267.304 Balance 627.444 140.402 267.304 Weight 50 kg Intake: IV 10 Invasive Line 1 10 Intake, IV Titration 97.444 140.402 27.304 Amount Heparin Sod,Pork in 0.45% 97.444 140.402 27.304 NaCl 25,000 unit In 0.45 % NaCl 1 250ml.bag @ 9.8 UNITS/KG/HR 4.579 mls/hr IV .Q24H [facility] Rx#: [id number] Oral 520 240 Other: Voiding Method Toilet Toilet # Voids 2 1 # Bowel Movements 1 - Labs CBC & Chem 7: 01/02/23 07:25 01/02/23 07:25 Labs: Abnormal Lab Results - Last 24 Hours (Table) 01/01/23 01/01/23 01/01/23 Range/Units 11:59 11:59 19:24 RBC (3.80-5.40) m/uL APTT 90.8 H 66.2 H (22.0-30.0) sec Sodium 127 L (137-145) mmol/L Carbon Dioxide 19 L (22-30) mmol/L BUN (7-17) mg/dL Creatinine 0.40 L (0.52-1.04) mg/dL Glucose 108 H (74-99) mg/dL AST 65 H (14-36) U/L 01/02/23 01/02/23 01/02/23 Range/Units 07:25 07:25 07:25 RBC 3.79 L (3.80-5.40) m/uL APTT 56.7 H (22.0-30.0) sec Sodium 130 L (137-145) mmol/L Carbon Dioxide (22-30) mmol/L BUN 6 L (7-17) mg/dL Creatinine 0.44 L (0.52-1.04) mg/dL Glucose 110 H (74-99) mg/dL AST (14-36) U/L Microbiology - Last 24 Hours (Table) 12/31/22 01:50 Blood Culture - Preliminary Blood 12/31/22 01:28 Blood Culture - Preliminary Blood
--- NOTE | 2023-01-02 13:06 | P.PN ---
Subjective Progress Note Date: 01/02/23 This is an 82-year-old. Patient was brought into the hospital because of shortness of breath. She was recently in the hospital for workup for a stroke. The patient presented earlier with symptoms of aphasia. She was found to have hyponatremia. At the same time, the patient was seen by neurology and she underwent a neurology underwent extensive workup including MRI as well as 2-D echo with bubble study which was negative. Patient was also evaluated by vascular surgery with no plans for surgical intervention and recommending outpatient follow-up. The patient was discharged on a combination of aspirin and Plavix. During this current admission, the patient was found to be in A. fib RVR and the heart rate was around 120. It seems that she has converted back into normal sinus rhythm. She has no chest pain. She has no cough or sputum production. No hemoptysis or pleurisy. No orthopnea. No paroxysmal nocturnal dyspnea. The patient's had a chest x-ray that showed bilateral pleural effusion and pulmonary vessel congestion. CT angiogram showed no evidence of any pulmonary embolism. There is bilateral pleural effusion and some depending atelectatic changes in lung bases. The patient was given a dose of Lasix. The proBNP level was at 1670. Troponins were 0.4 and 0.5 respectively. The viral screen was negative. Legionella urine antigen was negative. The white cell count was at 7.8 with a hemoglobin 12.4. Sodium level is at 127 and the potassium levels at 4.5. The patient was covered with antibiotics. The patient was started on IV heparin. The patient is currently on oxygen and she is at 2 L with a pulse ox of 98%. She denies having any specific complaints. She was placed on IV Rocephin and Zithromax as an empiric antibiotic coverage. On today's evaluation of 01/01/2023, I'm seeing the patient for a follow-up. She is currently on 2 L of Oxymizer nasal cannula. She was given an additional dose of Lasix by cardiology. She did have a elevated troponins and the patient is being considered for a cardiac catheterization. A follow-up chest x-ray was done today and it showed cardiomegaly and pulmonary vessel congestion which is improved and there is also small bilateral pleural effusion the lung bases. The patient remains on IV heparin. The patient remains on empiric antibiotic coverage with accommodation of Rocephin and Zithromax. The bloodwork from yesterday was noted. Troponin peaked at 0.5. Pronestyl level is at 0.17. Legionella urine antigen is negative. On 01/02/2023, the patient is being seen for a follow-up. The patient is asked to assess is improved and the patient is currently on room air oxygen. Awaiting final recommendations from cardiology regarding approximately of this patient having a cardiac catheterization unit during this current admission or placed on an outpatient basis. The patient otherwise is doing well. She remains on Rocephin and Zithromax pH remains on Lasix 20 mg IV every 8 hours. Blood work from today showing a sodium level of 1:30, BUN is at 6 with a creatinine of 0.4. The white cell count of 4.7 with a hemoglobin of 11.8. The patient's family chest pain. No new complaints otherwise for now. Objective - Vital Signs Vital signs: Vital Signs Temp 97.9 F 01/02/23 07:47 Pulse 95 01/02/23 07:47 Resp 18 01/02/23 07:47 BP 149/70 01/02/23 07:47 Pulse Ox 95 01/02/23 07:55 FiO2 Intake & Output 01/01/23 01/02/23 01/02/23 18:59 06:59 18:59 Intake Total 627.444 140.402 517.304 Balance 627.444 140.402 517.304 Weight 50 kg Intake: IV 10 Invasive Line 1 10 Intake, IV Titration 97.444 140.402 277.304 Amount Azithromycin 500 mg In 250 Sodium Chloride 0.9% 250 ml @ 250 mls/hr IVPB DAILY [facility] Rx#:[id number] Heparin Sod,Pork in 0.45% 97.444 140.402 27.304 NaCl 25,000 unit In 0.45 % NaCl 1 250ml.bag @ 9.8 UNITS/KG/HR 4.579 mls/hr IV .Q24H [facility] Rx#: [id number] Oral 520 240 Other: Voiding Method Toilet Toilet Toilet # Voids 2 1 # Bowel Movements 1 - Exam Patient is currently calm and comfortable and she is on room air oxygen Head exam was generally normal. There was no scleral icterus or corneal arcus. Mucous membranes were moist. Neck was supple and without jugular venous distension, thyromegaly, or carotid bruits. Carotids were easily palpable bilaterally. There was no adenopathy. Lungs sounds are diminished in lung bases bilaterally otherwise clear Cardiac exam revealed the PMI to be normally situated and sized. The rhythm was regular and no extrasystoles were noted during several minutes of auscultation. The first and second heart sounds were normal and physiologic splitting of the second heart sound was noted. There were no murmurs, rubs, clicks, or gallops. Abdominal exam revealed normal bowel sounds. The abdomen was soft, non-tender, and without masses, organomegaly, or appreciable enlargement of the abdominal aorta. Examination of the extremities revealed easily palpable radial, femoral and pedal pulses. There was no cyanosis, clubbing or edema. Examination of the skin revealed no evidence of significant rashes, suspicious appearing nevi or other concerning lesions. Neurologically, the patient is awake and alert and the patient does not have any focal neurological deficit. Cranial nerves are essentially intact. - Labs CBC & Chem 7: 01/02/23 07:25 01/02/23 07:25 Labs: Abnormal Lab Results - Last 24 Hours (Table) 01/01/23 01/01/23 01/01/23 Range/Units 11:59 11:59 19:24 RBC (3.80-5.40) m/uL APTT 90.8 H 66.2 H (22.0-30.0) sec Sodium 127 L (137-145) mmol/L Carbon Dioxide 19 L (22-30) mmol/L BUN (7-17) mg/dL Creatinine 0.40 L (0.52-1.04) mg/dL Glucose 108 H (74-99) mg/dL AST 65 H (14-36) U/L 01/02/23 01/02/23 01/02/23 Range/Units 07:25 07:25 07:25 RBC 3.79 L (3.80-5.40) m/uL APTT 56.7 H (22.0-30.0) sec Sodium 130 L (137-145) mmol/L Carbon Dioxide (22-30) mmol/L BUN 6 L (7-17) mg/dL Creatinine 0.44 L (0.52-1.04) mg/dL Glucose 110 H (74-99) mg/dL AST (14-36) U/L Microbiology - Last 24 Hours (Table) 12/31/22 01:50 Blood Culture - Preliminary Blood 12/31/22 01:28 Blood Culture - Preliminary Blood Assessment and Plan Plan: Acute hypoxic respiratory failure currently on 2 L of oxygen nasal cannula, chest x-ray showing improvement in the pulmonary vessel congestion and the patient continues to smoke but the pleural effusions, oxygen is improved and on today's evaluation, the patient was placed on room air oxygen. Shortness of breath on that investigation. CT angiogram showed no evidence of any pulmonary embolism. There is bilateral pleural effusions along with dependent atelectatic change in lung bases. I highly doubt possibility of a bacterial pneumonia. I favor a component of CHF which contributed to the patient's shortness of breath. Noted the patient presented with A. fib/RVR and the patient has also elevated proBNP level, previous echo cardiac exam shows a preserved LV function and the patient is responding nicely to diuretics. The patient remains on Lasix 20 mg IV every 8 hours. She is responding to diuretics. She is also on empiric antibiotic coverage with Rocephin and Zithromax. Suspect non-ST segment elevation myocardial infarction, without any chest pain. Patient remains on IV heparin. Paroxysmal A. 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 She was consulted with vascular surgery. Is possible that her previous presentation was also due to paroxysmal A. fib. Carotid artery stenosis with a previous left endarterectomy Plan Continue aspirin and Plavix Continue IV heparin Cardiology consultation initiated Possible cardiac catheterization, awaiting final recommendations from cardiology Continue IV Lasix Wean down FiO2 as tolerated to maintain a saturation above 90%, currently on room air oxygen Monitor sodium level, which is essentially improving Antibiotic coverage is essentially empiric, pneumonia is doubtful Complete the course of antibiotics and discontinue.
[2023-01-02] MEDS: FUROSEMIDE 10 MG/ML 2 ML VIAL IV SCH ×3 (13:09→23:39)
[2023-01-02] MEDS: AZITHROMYCIN 500 MG TAB PO SCH (13:09)
[2023-01-02] MEDS: MELATONIN 3 MG TABLET PO PRN (20:35)
[2023-01-02] MEDS: ACETAMINOPHEN TAB 325 MG TAB PO PRN (20:35)
[2023-01-03] MEDS: LEVOTHYROXINE 25 MCG TAB PO SCH (06:42)
[2023-01-03] MEDS: ACETAMINOPHEN TAB 325 MG TAB PO PRN (07:18)
[2023-01-03 08:40] LABS: HCT 37.3 % (34.0-46.0); HGB 12.4 gm/dL (11.4-16.0); MCH 30.8 pg (25.0-35.0); MCHC 33.3 g/dL (31.0-37.0); MCV 92.5 fL (80.0-100.0); Mean Platelet Volume 7.7; Platelet Count 305 k/uL (150-450); RBC 4.03 m/uL (3.80-5.40); RDW 13.7 % (11.5-15.5); WBC 5.3 k/uL (3.8-10.6)
[2023-01-03] MEDS: CLOPIDOGREL 75 MG TAB PO SCH (08:40)
[2023-01-03] MEDS: ATORVASTATIN 40 MG TAB PO SCH (08:40)
[2023-01-03] MEDS: ASPIRIN 81 MG PO SCH (08:40)
[2023-01-03] MEDS: AZITHROMYCIN 500 MG TAB PO SCH (08:40)
[2023-01-03] MEDS: METOPROLOL TARTRATE 25 MG TAB PO SCH (08:40)
[2023-01-03] MEDS: FUROSEMIDE 10 MG/ML 2 ML VIAL IV SCH (08:40)
[2023-01-03] MEDS: EZETIMIBE 10 MG TAB PO SCH (08:41)
[2023-01-03 08:58] LABS: African American GFR (CKD) >90 (>60 ml/min/1.73 sqM); Anion Gap 10 mmol/L; Blood Urea Nitrogen 7 mg/dL (7-17); Calcium 9.5 mg/dL (8.4-10.2); Carbon Dioxide 27 mmol/L (22-30); Chloride 93 mmol/L (98-107); Glucose 104 mg/dL (74-99); Non-African American GFR(CKD) 88 (>60 ml/min/1.73 sqM); Potassium 3.7 mmol/L (3.5-5.1); Sodium 130 mmol/L (137-145)
[2023-01-03] MEDS ORDERED: FUROSEMIDE 20 MG TAB PO SCH (09:00)
--- NOTE | 2023-01-03 12:01 | P.DS ---
Providers Date of admission: 12/31/22 01:14 Expected date of discharge: 01/03/23 Attending physician: Ebenezer Chu Consults: 12/31/22 01:12 Consult Physician Routine Consulting Provider: [facility] Consult Reason/Comments: elevated trop after episode of respiratory distress Do you want consulting provider notified?: Yes, Notify in am 12/31/22 01:13 Consult Physician Routine Consulting Provider: Tiago Sharma Consult Reason/Comments: respiratory distress, smoking hx, no dx of COPD previous Do you want consulting provider notified?: Yes, Notify in am Primary care physician: Srinivas Collis P[facility] Hospital Course: * 82-year-old lady with past medical history significant for hypertension, hypothyroidism who presented to the ER because of shortness of breath. Patient was recently admitted to the hospital for stroke workup, evaluated by neurology underwent extensive workup including MRI as well as 2-D echo with bubble study which was negative. Patient was also evaluated by vascular surgery with no plans for surgical intervention and recommending outpatient follow-up. Patient stated she was all right yesterday when she started noticing sudden onset of shortness of breath. Shortness of breath was present at rest, not associated with any chest pain. Patient was complaining of palpitations. Denies any swelling of feet. Denied any orthopnea or PND. Patient recently saw her PCP who was concerned about patient having A. fib but at that time EKG did not reveal any arrhythmia. Because of shortness of breath, patient came to the ER * Initial lab work done in the ER showed WBC 9.9, hemoglobin 14.5, platelet count 14, sodium 127, potassium 4.5, BUN 7, creatinine 0.44, lactate 4.2 * EKG done in the ER showed heart rate of 127, QRS 94, no ST segment elevation seen, no P waves seen. * Chest x-ray done in the ER showed cardiomegaly, pulmonary congestion and bilateral pleural effusions * CTA chest done showed no PE, dependent airspace consolidations consistent with multifocal pneumonia. Small bilateral parapneumonic effusions * 01/01: Patient seen and evaluated bedside. Seen by pulmonary medicine and cardiology. IV fluids discontinued continue patient on diuresis continue empiric antibiotic Rocephin and azithromycin will wean down on oxygen as tolerated * 01/02: Patient seen and evaluated bedside. Patient is alert and oriented 4. Shortness of breath is improved. Weaned down to room air family at bedside. Discussed with son and daughter at bedside * 01/03: Patient seen and evaluated bedside. Patient alert and oriented 4. On room air. Discuss with cardiology discharge on Lasix for 5 days. Outpatient follow PCP recommended given prescription for Ceftin to complete 2 more days total 5 day course of antibiotic completed azithromycin while inpatient PHYSICAL EXAMINATION: GENERAL: The patient is alert and oriented x3, , appears well, nasal cannula removed HEENT: Pupils are round and equally reacting to light. EOMI. PULMONARY: Decreased breath sounds bilaterally, rhonchi audible ABDOMEN: Soft, nontender, nondistended, normoactive bowel sounds. No palpable organomegaly. MUSCULOSKELETAL: No joint swelling or deformity. EXTREMITIES: No cyanosis, clubbing, or pedal edema. NEUROLOGICAL: Gross neurological examination did not reveal any focal deficits. SKIN: Oozing noted on skin Assessment: Assessment and plan * Acute hypoxic respiratory failure * Acute exacerbation of congestive heart failure diastolic dysfunction * Non-ST elevated LA * Paroxysmal atrial fibrillation with rapid ventricular response * Multifocal pneumonia * Hypertension * Hyponatremia * Carotid artery stenosis, history of left carotid endarterectomy * Hypothyroid * Consult obtained from pulmonary medicine and cardiology * In regards to non-ST elevated LA and congestive heart failure patient was treated with IV heparin. Continue Lasix, aspirin, Plavix, Lipitor. The patient follow-up with cardiology recommended * In regards to carotid endarterectomy continue patient on aspirin, Lipitor, Plavix * In regards to multifocal pneumonia she was on Rocephin and azithromycin day. Pro-calcitonin levels minimally elevated, serum Legionella negative, QTC 427, discharge on oral Ceftin Patient Condition at Discharge: Stable Plan - Discharge Summary Discharge Rx Participant: No New Discharge Prescriptions: New cefUROXime axetiL [Cefuroxime] 500 mg PO BID 2 Days #4 tab Furosemide [Lasix] 20 mg PO BID@0900,1600 5 Days #5 tab Continue amLODIPine [Norvasc] 5 mg PO DAILY Metoprolol Tartrate [Lopressor] 25 mg PO BID Levothyroxine Sodium [Synthroid] 25 mcg PO DAILY Ezetimibe [Zetia] 10 mg PO DAILY Sodium Bicarbonate 325 mg PO MOWEFR Acetaminophen Tab [Tylenol] 650 mg PO Q6HR PRN tab PRN Reason: Fever And/ Or Pain Aspirin 81 mg PO DAILY #30 tab Atorvastatin [Lipitor] 40 mg PO DAILY #30 tablet Clopidogrel [Plavix] 75 mg PO DAILY 30 Days #30 tab Discharge Medication List Levothyroxine Sodium [Synthroid] 25 mcg PO DAILY 08/16/14 [History] Metoprolol Tartrate [Lopressor] 25 mg PO BID 08/16/14 [History] amLODIPine [Norvasc] 5 mg PO DAILY 08/16/14 [History] Ezetimibe [Zetia] 10 mg PO DAILY 12/01/19 [History] Sodium Bicarbonate 325 mg PO MOWEFR 12/23/22 [History] Acetaminophen Tab [Tylenol] 650 mg PO Q6HR PRN tab 12/25/22 [Rx] Aspirin 81 mg PO DAILY #30 tab 12/25/22 [Rx] Atorvastatin [Lipitor] 40 mg PO DAILY #30 tablet 12/25/22 [Rx] Clopidogrel [Plavix] 75 mg PO DAILY 30 Days #30 tab 12/25/22 [Rx] Furosemide [Lasix] 20 mg PO BID@0900,1600 5 Days #5 tab 01/03/23 [Rx] cefUROXime axetiL [Cefuroxime] 500 mg PO BID 2 Days #4 tab 01/03/23 [Rx] Follow up Appointment(s)/Referral(s): Ishaan Vale MD [STAFF PHYSICIAN] - 1 Week Srinivas Villalta DO [Primary Care Provider] - 1-2 days Ambulatory/Diagnostic Orders: Basic Metabolic Panel [LAB.AMB] Location: None Selected Activity/Diet/Wound Care/Special Instructions: Stress test outpatient Discharge/Stand Alone Forms: Who Do I Call?, Help In The Home, Personal Yard Coordinator
--- NOTE | 2023-01-03 12:24 | P.PN ---
Subjective Progress Note Date: 01/03/23 This is an 82-year-old. Patient was brought into the hospital because of shortness of breath. She was recently in the hospital for workup for a stroke. The patient presented earlier with symptoms of aphasia. She was found to have hyponatremia. At the same time, the patient was seen by neurology and she underwent a neurology underwent extensive workup including MRI as well as 2-D echo with bubble study which was negative. Patient was also evaluated by vascular surgery with no plans for surgical intervention and recommending outpatient follow-up. The patient was discharged on a combination of aspirin and Plavix. During this current admission, the patient was found to be in A. fib RVR and the heart rate was around 120. It seems that she has converted back into normal sinus rhythm. She has no chest pain. She has no cough or sputum production. No hemoptysis or pleurisy. No orthopnea. No paroxysmal nocturnal dyspnea. The patient's had a chest x-ray that showed bilateral pleural effusion and pulmonary vessel congestion. CT angiogram showed no evidence of any pulmonary embolism. There is bilateral pleural effusion and some depending atelectatic changes in lung bases. The patient was given a dose of Lasix. The proBNP level was at 1670. Troponins were 0.4 and 0.5 respectively. The viral screen was negative. Legionella urine antigen was negative. The white cell count was at 7.8 with a hemoglobin 12.4. Sodium level is at 127 and the potassium levels at 4.5. The patient was covered with antibiotics. The patient was started on IV heparin. The patient is currently on oxygen and she is at 2 L with a pulse ox of 98%. She denies having any specific complaints. She was placed on IV Rocephin and Zithromax as an empiric antibiotic coverage. On today's evaluation of 01/01/2023, I'm seeing the patient for a follow-up. She is currently on 2 L of Oxymizer nasal cannula. She was given an additional dose of Lasix by cardiology. She did have a elevated troponins and the patient is being considered for a cardiac catheterization. A follow-up chest x-ray was done today and it showed cardiomegaly and pulmonary vessel congestion which is improved and there is also small bilateral pleural effusion the lung bases. The patient remains on IV heparin. The patient remains on empiric antibiotic coverage with accommodation of Rocephin and Zithromax. The bloodwork from yesterday was noted. Troponin peaked at 0.5. Pronestyl level is at 0.17. Legionella urine antigen is negative. On 01/02/2023, the patient is being seen for a follow-up. The patient is asked to assess is improved and the patient is currently on room air oxygen. Awaiting final recommendations from cardiology regarding approximately of this patient having a cardiac catheterization unit during this current admission or placed on an outpatient basis. The patient otherwise is doing well. She remains on Rocephin and Zithromax pH remains on Lasix 20 mg IV every 8 hours. Blood work from today showing a sodium level of 1:30, BUN is at 6 with a creatinine of 0.4. The white cell count of 4.7 with a hemoglobin of 11.8. The patient's family chest pain. No new complaints otherwise for now. On today's evaluation of 01/03/2023, see the patient for a follow-up. The patient is doing well. No specific complaints. Her cardiac rhythm remains sinus yesterday irregular and there is a obvious sinus arrhythmia noted. No clear indication for underlying atrial fibrillation. Cardiology evaluated the patient and they're planning to do an outpatient cardiac stress test and outpatient cafeteria monitor to rule out the possibility of paroxysmal A. fib. The patient otherwise on room air oxygen. She has no respiratory difficulties. She has been treated with antibiotics. She is also been treated with Lasix 20 mg by mouth twice a day. Sodium level is at 130, BUN is at 7 with a creatinine of 0.5 and a white cell cause of 5.4 with a hemoglobin 12.3. Pro-calcitonin level was at 0.13. Objective - Vital Signs Vital signs: Vital Signs Temp 98.7 F 01/03/23 08:55 Pulse 95 01/03/23 08:55 Resp 16 01/03/23 08:55 BP 149/77 01/03/23 08:55 Pulse Ox 94 L 01/03/23 08:55 FiO2 Intake & Output 01/02/23 01/03/23 01/03/23 18:59 06:59 18:59 Intake Total 706.313 360 Balance 706.313 360 Intake: Intake, IV Titration 286.313 Amount Azithromycin 500 mg In 250 Sodium Chloride 0.9% 250 ml @ 250 mls/hr IVPB DAILY MORE Rx#:[id number] Heparin Sod,Pork in 0.45% 36.313 NaCl 25,000 unit In 0.45 % NaCl 1 250ml.bag @ 9.8 UNITS/KG/HR 4.579 mls/hr IV .Q24H MORE Rx#: [id number] Oral 420 360 Other: Voiding Method Toilet Toilet # Voids 4 1 # Bowel Movements 1 - Exam Patient is currently calm and comfortable and she is on room air oxygen Head exam was generally normal. There was no scleral icterus or corneal arcus. Mucous membranes were moist. Neck was supple and without jugular venous distension, thyromegaly, or carotid bruits. Carotids were easily palpable bilaterally. There was no adenopathy. Lungs sounds are diminished in lung bases bilaterally otherwise clear Cardiac exam revealed the PMI to be normally situated and sized. The rhythm was regular and no extrasystoles were noted during several minutes of auscultation. The first and second heart sounds were normal and physiologic splitting of the second heart sound was noted. There were no murmurs, rubs, clicks, or gallops. Abdominal exam revealed normal bowel sounds. The abdomen was soft, non-tender, and without masses, organomegaly, or appreciable enlargement of the abdominal aorta. Examination of the extremities revealed easily palpable radial, femoral and pedal pulses. There was no cyanosis, clubbing or edema. Examination of the skin revealed no evidence of significant rashes, suspicious appearing nevi or other concerning lesions. Neurologically, the patient is awake and alert and the patient does not have any focal neurological deficit. Cranial nerves are essentially intact. - Labs CBC & Chem 7: 01/03/23 07:42 01/03/23 07:42 Labs: Abnormal Lab Results - Last 24 Hours (Table) 01/02/23 01/03/23 Range/Units 07:25 07:42 Sodium 130 L (137-145) mmol/L Chloride 93 L (98-107) mmol/L Glucose 104 H (74-99) mg/dL Procalcitonin 0.13 H (0.02-0.09) ng/mL Microbiology - Last 24 Hours (Table) 12/31/22 01:50 Blood Culture - Preliminary Blood 12/31/22 01:28 Blood Culture - Preliminary Blood Assessment and Plan Plan: Acute hypoxic respiratory failure currently on 2 L of oxygen nasal cannula, chest x-ray showing improvement in the pulmonary vessel congestion and the patient continues to smoke but the pleural effusions, oxygen is improved and on today's evaluation, the patient was placed on room air oxygen. Shortness of breath on that investigation. CT angiogram showed no evidence of any pulmonary embolism. There is bilateral pleural effusions along with dependent atelectatic change in lung bases. I highly doubt possibility of a bacterial pneumonia. I favor a component of CHF which contributed to the patient's shortness of breath. Noted the patient presented with A. fib/RVR and the patient has also elevated proBNP level, previous echo cardiac exam shows a preserved LV function and the patient is responding nicely to diuretics. The patient remains on Lasix 20 mg IV every 8 hours. She is responding to diuretics. She is also on empiric antibiotic coverage with Rocephin and Zithromax. Suspect non-ST segment elevation myocardial infarction, without any chest pain. Patient remains on IV heparin. Paroxysmal A. 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 She was consulted with vascular surgery. Is possible that her previous presentation was also due to paroxysmal A. fib. Carotid artery stenosis with a previous left endarterectomy Plan Discussed the case with cardiology and we will going to do an outpatient cafeteria monitor/Holter addition to an outpatient cardiac stress test Continue aspirin and Plavix Anti-coagulation with discontinued No plan for cardiac catheterization for now Continue oral Lasix 20 mg by mouth twice a day Wean down FiO2 as tolerated to maintain a saturation above 90%, currently on room air oxygen Monitor sodium level, which is essentially improving Antibiotic can be discontinued Possible discharge home today to be followed up on outpatient basis
[2023-01-03 15:45] VITALS: BP 149/77; PULSE 95; TEMP 98.7
[2023-01-03 15:59] VITALS: RESP 16
--- NOTE | 2023-01-03 16:09 | P.PN ---
Subjective Progress Note Date: 01/03/23 History of present illness: This is an 82-year-old female with history of hypertension, hypothyroidism, hy perlipidemia and presented to the hospital with increasing shortness of breath with known history of COPD and history of smoking. Patient's troponin was elevated but did not have any chest discomfort. Elevated d-dimer with out evidence of pulmonary embolism on CTA. Patient unable to provide much history. EKG was a sinus rhythm with possible short runs of atrial fibrillation but was in sinus rhythm at time of evaluation. Echocardiogram 12/25 revealed preserved systolic function. Troponins were elevated and repeat echocardiogram reveals moderate global hypokinesia with EF of 35-40%. 01/02 Patient is seen today in follow-up. She remains on a heparin drip. Repeat EKG ordered, sinus rhythm at 86 bpm. Repeat chest x-ray reveals pulmonary venous congestion and interstitial edema improved. Small effusions and cardiomegaly. Mitral annular calcification seen. Underlying superimposed pneumonia is not excluded. Heart rate is running in the 70s to 90s, blood pressure 149/70 01/03 Patient is seen today in follow-up. Dr. Sanchez relates the patient had a short episode of atrial fibrillation while in the intensive care unit and with recent CVA, concerned that there is paroxysmal atrial fibrillation in both event monitor will be arranged prior to patient's discharge. Plan will be for a stress test outpatient. IV heparin was discontinued yesterday. She is on IV Lasix. Physical examination: Gen: This is an 82-year-old female resting in bed and appears to be comfortable. No acute distress noted. VS: reviewed LUNGS: Clear to auscultation. No wheezes or rhonchi. No intercostal retractions. HEART: Regular rate and rhythm. Short systolic murmur. ABDOMEN: Soft No tenderness. EXTREMITIES: No pedal edema. No calf tenderness. NEUROLOGICAL: Patient is awake, alert. Assessment: Probable non-ST elevated myocardial infarction with out evidence of chest pain Recent CVA Hypertension Hypercholesterolemia Past history of smoking with COPD Plan: Continue cardiac medications Continue Lasix 20 mg twice daily for 5 days and then discontinue in the outpatient arena Patient may follow-up in the office in one to 2 weeks for possible stress testing outpatient Event monitor will be obtained in the office. Nurse practitioner note has been reviewed, I agree with documented findings and plan of care. Patient was seen and examined. Objective - Vital Signs Vital signs: Vital Signs Temp 98.7 F 01/03/23 08:55 Pulse 95 01/03/23 08:55 Resp 16 01/03/23 08:55 BP 149/77 01/03/23 08:55 Pulse Ox 94 L 01/03/23 08:55 FiO2 Intake & Output 01/02/23 01/03/23 01/03/23 18:59 06:59 18:59 Intake Total 706.313 360 Balance 706.313 360 Intake: Intake, IV Titration 286.313 Amount Azithromycin 500 mg In 250 Sodium Chloride 0.9% 250 ml @ 250 mls/hr IVPB DAILY MORE Rx#:[id number] Heparin Sod,Pork in 0.45% 36.313 NaCl 25,000 unit In 0.45 % NaCl 1 250ml.bag @ 9.8 UNITS/KG/HR 4.579 mls/hr IV .Q24H MORE Rx#: [id number] Oral 420 360 Other: Voiding Method Toilet Toilet # Voids 4 1 # Bowel Movements 1 - Labs CBC & Chem 7: 01/03/23 07:42 01/03/23 07:42 Labs: Abnormal Lab Results - Last 24 Hours (Table) 01/02/23 01/03/23 Range/Units 07:25 07:42 Sodium 130 L (137-145) mmol/L Chloride 93 L (98-107) mmol/L Glucose 104 H (74-99) mg/dL Procalcitonin 0.13 H (0.02-0.09) ng/mL Microbiology - Last 24 Hours (Table) 12/31/22 01:50 Blood Culture - Preliminary Blood 12/31/22 01:28 Blood Culture - Preliminary Blood
== END 2023-01-03 14:23 | disposition home health service (06) | DRG 871 ==
LOC: EC 19:05 → 3SCARD 12-31 01:14
PROVIDERS: ADMIT Hospitalist; ATTEND Hospitalist
DX: A41.9 Sepsis, unspecified organism (principal); I21.4 Non-ST elevation (NSTEMI) myocardial infarction; I50.33 Acute on chronic diastolic (congestive) heart failure; J15.9 Unspecified bacterial pneumonia; J96.01 Acute respiratory failure with hypoxia; E87.1 Hypo-osmolality and hyponatremia; J44.0 Chronic obstructive pulmonary disease with (acute) lower respiratory infection; J98.11 Atelectasis; Z87.891 Personal history of nicotine dependence; E03.9 Hypothyroidism, unspecified; I11.0 Hypertensive heart disease with heart failure; I34.81 Nonrheumatic mitral (valve) annulus calcification; I48.0 Paroxysmal atrial fibrillation; I65.21 Occlusion and stenosis of right carotid artery; R29.810 Facial weakness; Z20.822 Contact with and (suspected) exposure to COVID-19; R79.1 Abnormal coagulation profile; Z79.02 Long term (current) use of antithrombotics/antiplatelets; Z79.82 Long term (current) use of aspirin; Z79.890 Hormone replacement therapy; Z79.899 Other long term (current) drug therapy; Z86.73 Personal history of transient ischemic attack (TIA), and cerebral infarction without residual deficits; Z98.61 Coronary angioplasty status; E78.00 Pure hypercholesterolemia, unspecified; H91.90 Unspecified hearing loss, unspecified ear
CPT/HCPCS: 36415; 71045; 71046; 71275; 80048; 80053; 83605; 83880; 84145; 84484; 85025; 85027; 85610; 85730; 86140; 87040; 87449; 87636; 93005; 93308; 94640; 96365; 96366; 96367; 96375; 99291

== ENCOUNTER 2023-02-01 17:20 | Inpatient (IN) | payer MEDICARE ==
[2023-02-01] MEDS ORDERED: NITROGLYCERIN-D5W PMX 50 MG in DEXTROSE/WATER 1 250ML.BAG IV ONE (17:25)
[2023-02-01] MEDS ORDERED: MORPHINE SULFATE 4 MG/ML SYRINGE IVP STA (17:26)
[2023-02-01] MEDS ORDERED: DILTIAZEM 125 MG in SODIUM CHLORIDE 0.9% 100 ML IV SCH (17:30)
[2023-02-01 17:35] LABS: Glucose,Whole Blood 205 mg/dL (70-110)
[2023-02-01 17:57] LABS: Basophils % (A) 0 %; Eosinophils # (A) 0.2 k/uL (0-0.7); Eosinophils % (A) 1 %; Lymphocytes # (A) 2.5 k/uL (1.0-4.8); Lymphocytes % (A) 20 %; MCH 30.2 pg (25.0-35.0); MCHC 32.5 g/dL (31.0-37.0); MCV 92.9 fL (80.0-100.0); Mean Platelet Volume 7.7; Monocytes # (A) 0.9 k/uL (0-1.0); Monocytes % (A) 7 %; Neutrophils # (A) 8.8 k/uL (1.3-7.7); Neutrophils % (A) 69 %; Platelet Count 340 k/uL (150-450); RBC 4.63 m/uL (3.80-5.40); WBC 12.8 k/uL (3.8-10.6)
[2023-02-01] MEDS ORDERED: MORPHINE SULFATE 2 MG/ML SYRINGE IV STA (18:00)
[2023-02-01] MEDS ORDERED: ALBUTEROL NEBULIZED 2.5 MG/3 ML INHALATION STA (18:00)
[2023-02-01 18:07] LABS: ALT 17 U/L (4-34); AST 27 U/L (14-36); African American GFR (CKD) >90 (>60 ml/min/1.73 sqM); Albumin 4.8 g/dL (3.5-5.0); Alkaline Phosphatase 93 U/L (38-126); Anion Gap 15 mmol/L; Blood Urea Nitrogen 9 mg/dL (7-17); Calcium 9.3 mg/dL (8.4-10.2); Carbon Dioxide 18 mmol/L (22-30); Chloride 93 mmol/L (98-107); Glucose 209 mg/dL (74-99); Non-African American GFR(CKD) >90 (>60 ml/min/1.73 sqM); Potassium 4.7 mmol/L (3.5-5.1); Sodium 126 mmol/L (137-145); Total Bilirubin 1.4 mg/dL (0.2-1.3); Total Protein 7.4 g/dL (6.3-8.2)
[2023-02-01 18:16] LABS: NT-Pro-B-Type Natriuretic Pept 4250 pg/mL
[2023-02-01 18:20] LABS: Partial Thromboplastin Time 22.2 sec (22.0-30.0)
--- NOTE | 2023-02-01 19:35 | ED ---
SOB HPI - General Chief Complaint: Shortness of Breath Stated Complaint: JAQUAN Time Seen by Provider: 02/01/23 17:40 Source: patient, EMS Mode of arrival: EMS Limitations: physical limitation (Severe dyspnea) - History of Present Illness Initial Comments: This patient is an 82-year-old woman brought to have evaluation for acute onset shortness of breath. Symptoms had developed this afternoon and rapidly worsened. Patient is not able to give much history due to severe dyspnea. EMS was called to the scene, placed patient on CPAP and transported her here. They also did give albuterol treatment on route. The patient denies chest pain. Denies change in urination. MD Complaint: shortness of breath -: hour(s) Severity scale (1-10): 0 Consistency: constant Improves With: upright position Worsens With: lying flat Known History Of: congestive heart failure Treatments Prior to Arrival: oxygen, bronchodilator, NIPPV - Related Data Home Oxygen Therapy: No Home Medications Medication Instructions Recorded Confirmed Levothyroxine Sodium [Synthroid] 25 mcg PO DAILY 08/16/14 02/01/23 Metoprolol Tartrate [Lopressor] 25 mg PO DAILY 08/16/14 02/01/23 Ezetimibe [Zetia] 10 mg PO DAILY 12/01/19 02/01/23 Sodium Bicarbonate 325 mg PO DAILY 12/23/22 02/01/23 Apixaban [Eliquis] 2.5 mg PO BID 02/01/23 02/01/23 LORazepam [Ativan] 0.5 mg PO HS PRN 02/01/23 02/01/23 Melatonin 5 mg PO HS 02/01/23 02/01/23 Previous Rx's Medication Instructions Recorded Dapagliflozin Propanediol [Farxiga] 10 mg PO DAILY #30 tab 02/05/23 Famotidine [Pepcid] 20 mg PO DAILY #30 tablet 02/05/23 Furosemide [Lasix] 40 mg PO DAILY #30 tab 02/05/23 Sacubitril/Valsartan [Entresto 24 1 each PO BID #60 tab 02/05/23 mg-26 mg Tablet] Spironolactone [Aldactone] 25 mg PO DAILY #30 tab 02/05/23 Allergies Allergy/AdvReac Type Severity Reaction Status Date / Time Environmental-mold,dustmites,pollen Allergy sinus Uncoded 02/01/23 17:24 symptoms Review of Systems ROS Statement: Those systems with pertinent positive or pertinent negative responses have been documented in the HPI. ROS Other: All systems not noted in ROS Statement are negative. Limitations: ROS unobtainable due to patients medical condition (Severe dyspnea) Constitutional: Denies: fever, chills Respiratory: Reports: dyspnea. Denies: cough Cardiovascular: Reports: orthopnea. Denies: chest pain, edema Gastrointestinal: Denies: abdominal pain, vomiting Musculoskeletal: Denies: back pain Neurological: Denies: headache Past Medical History Past Medical History: GERD/Reflux, Hyperlipidemia, Hypertension, Thyroid Disorder Additional Past Medical History / Comment(s): ABD PAIN. LOST APPETITE, EATING CAUSES PAIN. CHOL.-DIET CONTROLLED History of Any Multi-Drug Resistant Organisms: None Reported Past Surgical History: Heart Catheterization With Stent, Orthopedic Surgery Additional Past Surgical History / Comment(s): LT CAROTID ENDARTERECTOMY. LT SHOULDER SURGERY. LT ANKLE SURGERY WITH PLATE & SCREWS IN. COLONOSCOPY, ANGIOGRAM, Stent bilat.legs. Past Anesthesia/Blood Transfusion Reactions: No Reported Reaction Date of Last Stent Placement:: 2004 Past Psychological History: No Psychological Hx Reported Smoking Status: Former smoker Past Alcohol Use History: Occasional Past Drug Use History: None Reported - Past Family History Mother Family Medical History: No Reported History General Exam Limitations: no limitations General appearance: in distress (Patient in severe respiratory distress) Head exam: Present: atraumatic, normocephalic Eye exam: Present: normal appearance. Absent: scleral icterus, conjunctival injection Neck exam: Present: normal inspection, full ROM Respiratory exam: Present: respiratory distress (Tachypnea), wheezes, accessory muscle use, decreased breath sounds. Absent: rales, rhonchi, stridor Cardiovascular Exam: Present: tachycardia (Rate approximately 130 and irregular), irregular rhythm, systolic murmur. Absent: diastolic murmur, rubs, gallop GI/Abdominal exam: Present: soft. Absent: distended, tenderness, guarding, rebound, rigid, mass Extremities exam: Present: normal inspection, normal capillary refill. Absent: pedal edema, calf tenderness Back exam: Present: normal inspection. Absent: CVA tenderness (R), CVA tenderness (L) Neurological exam: Present: alert Skin exam: Present: intact, diaphoretic, pallor. Absent: rash, erythema, urticaria, vesicles, petechiae Course Vital Signs 02/01/23 02/01/23 02/01/23 17:22 17:40 18:09 Temperature Pulse Rate 117 H 99 Respiratory 34 H 17 Rate Blood Pressure 143/103 107/78 O2 Sat by Pulse 82 L 82 L Oximetry Fraction of 30 Inspired Oxygen (FIO2) 02/01/23 02/01/23 02/01/23 18:10 18:13 18:25 Temperature Pulse Rate 99 95 Respiratory 17 34 H Rate Blood Pressure 107/78 O2 Sat by Pulse 82 L Oximetry Fraction of Inspired Oxygen (FIO2) 02/01/23 02/01/23 02/01/23 18:30 18:31 18:42 Temperature 96.5 F L Pulse Rate 95 96 Respiratory 24 Rate Blood Pressure 101/87 O2 Sat by Pulse 93 L Oximetry Fraction of Inspired Oxygen (FIO2) 02/01/23 02/01/23 02/01/23 18:45 19:05 19:15 Temperature Pulse Rate 93 93 105 H Respiratory 27 H 30 H 22 Rate Blood Pressure 95/70 92/65 92/65 O2 Sat by Pulse 94 L 96 96 Oximetry Fraction of Inspired Oxygen (FIO2) 02/01/23 02/01/23 02/01/23 19:30 19:42 20:00 Temperature Pulse Rate 89 97 76 Respiratory 33 H 25 H 29 H Rate Blood Pressure 85/59 79/48 93/64 O2 Sat by Pulse 97 97 99 Oximetry Fraction of Inspired Oxygen (FIO2) 02/01/23 02/01/23 02/01/23 20:15 20:30 20:45 Temperature Pulse Rate 78 79 73 Respiratory 18 26 H 25 H Rate Blood Pressure 87/61 80/65 85/58 O2 Sat by Pulse 98 94 L 91 L Oximetry Fraction of Inspired Oxygen (FIO2) 02/01/23 02/01/23 02/01/23 20:56 21:00 21:15 Temperature Pulse Rate 74 70 77 Respiratory 18 29 H 15 Rate Blood Pressure 81/49 81/49 90/63 O2 Sat by Pulse 92 L 92 L 91 L Oximetry Fraction of Inspired Oxygen (FIO2) 02/01/23 02/01/23 02/01/23 21:30 21:45 21:51 Temperature Pulse Rate 80 78 Respiratory 16 15 Rate Blood Pressure 81/56 90/67 O2 Sat by Pulse 92 L 92 L 92 L Oximetry Fraction of Inspired Oxygen (FIO2) 02/01/23 02/01/23 02/01/23 21:54 22:00 22:15 Temperature Pulse Rate 80 71 70 Respiratory 18 9 L 13 Rate Blood Pressure 92/70 92/70 92/72 O2 Sat by Pulse 95 94 L 95 Oximetry Fraction of Inspired Oxygen (FIO2) 02/01/23 02/01/23 02/01/23 22:30 22:45 23:00 Temperature Pulse Rate 75 74 65 Respiratory 14 16 14 Rate Blood Pressure 85/56 86/61 89/67 O2 Sat by Pulse 96 94 L 97 Oximetry Fraction of Inspired Oxygen (FIO2) 02/01/23 02/01/23 02/01/23 23:02 23:30 23:34 Temperature Pulse Rate 64 67 73 Respiratory 23 20 18 Rate Blood Pressure 72/45 72/45 71/58 O2 Sat by Pulse 96 97 97 Oximetry Fraction of Inspired Oxygen (FIO2) 02/02/23 02/02/23 02/02/23 00:00 00:26 00:30 Temperature Pulse Rate 68 65 61 Respiratory 22 18 18 Rate Blood Pressure 62/48 91/65 91/65 O2 Sat by Pulse 96 96 96 Oximetry Fraction of Inspired Oxygen (FIO2) 02/02/23 02/02/23 02/02/23 01:00 01:30 02:00 Temperature Pulse Rate 59 L 61 58 L Respiratory 9 L 10 L 9 L Rate Blood Pressure 84/58 74/53 66/52 O2 Sat by Pulse 97 100 Oximetry Fraction of Inspired Oxygen (FIO2) 02/02/23 02/02/23 02/02/23 02:30 02:37 03:00 Temperature Pulse Rate 73 72 80 Respiratory 20 20 20 Rate Blood Pressure 68/53 104/72 104/72 O2 Sat by Pulse 97 99 96 Oximetry Fraction of Inspired Oxygen (FIO2) 02/02/23 02/02/23 02/02/23 03:30 04:00 04:30 Temperature Pulse Rate 69 99 84 Respiratory 18 17 23 Rate Blood Pressure 114/78 99/66 110/71 O2 Sat by Pulse 96 95 Oximetry Fraction of Inspired Oxygen (FIO2) 02/02/23 02/02/23 02/02/23 05:00 05:30 06:00 Temperature Pulse Rate 66 64 64 Respiratory 10 L 9 L 10 L Rate Blood Pressure 105/73 92/57 82/70 O2 Sat by Pulse 97 98 98 Oximetry Fraction of Inspired Oxygen (FIO2) 02/02/23 02/02/23 02/02/23 06:30 06:43 07:00 Temperature Pulse Rate 62 62 93 Respiratory 14 16 16 Rate Blood Pressure 82/61 90/64 90/64 O2 Sat by Pulse 98 99 93 L Oximetry Fraction of Inspired Oxygen (FIO2) 02/02/23 02/02/23 02/02/23 09:31 11:50 12:49 Temperature Pulse Rate 103 H 85 Respiratory 24 18 Rate Blood Pressure 146/98 146/85 O2 Sat by Pulse 95 95 96 Oximetry Fraction of Inspired Oxygen (FIO2) 02/02/23 02/02/23 13:39 15:00 Temperature Pulse Rate 84 Respiratory 18 Rate Blood Pressure 142/80 O2 Sat by Pulse 98 97 Oximetry Fraction of Inspired Oxygen (FIO2) Medical Decision Making - Medical Decision Making This patient is an 82-year-old woman arriving in severe respiratory distress. She is brought directly to the trauma resuscitation room. The EMS CPAP was changed over to BiPAP on 100% oxygen. IV started and I did personally administer aliquots of nitroglycerin at the bedside until the patient's blood pressure began to markedly improve. The patient was clinically improving associated with the lower blood pressure. The heart rate decreased to approximately 105. Pulse ox readings improved from below 80 up to 84%. The diaphoresis resolved and the patient's skin coloration improved. The patient also given morphine. Patient started on Cardizem drip for atrial fibrillation with rapid ventricular rate. The patient had portable chest x-ray which I interpreted as showing vascular congestion consistent with CHF/edema. The patient had been reported as having some underlying COPD and therefore an albuterol treatment was given. Was pt. sent in by a medical professional or institution (, PA, FILM WASHER, urgent care, hospital, or [facility]...) When possible be specific @ -[No] Did you speak to anyone other than the patient for history (EMS, parent, family, police, friend...)? What history was obtained from this source @ -[EMS contributed history Did you review nursing and triage notes (agree or disagree)? Why? @ -[I reviewed and agree with nursing and triage notes] Were old charts reviewed (outside hosp., previous admission, EMS record, old EKG, old radiological studies, urgent care reports/EKG's, [facility] records)? Report findings @ -[No old charts were reviewed] Differential Diagnosis (chest pain, altered mental status, abdominal pain women, abdominal pain men, vaginal bleeding, weakness, fever, dyspnea, syncope, headache, dizziness, GI bleed, back pain, seizure, CVA, palpatations, mental health, musculoskeletal)? @ -Differential Dyspnea: Coronary syndrome, arrhythmia, tamponade, asthma, COPD, pulmonary embolism, pneumonia, pneumothorax, pulmonary effusion, anaphylaxis, diabetic ketoacidosis, flailed chest, pulmonary contusion, diaphragmatic rupture, anemia, neuromuscular, this is not meant to be an all-inclusive list. EKG interpreted by me (3pts min.). @ -[I interpreted As above] X-rays interpreted by me (1pt min.). @ -[I interpreted as above CT interpreted by me (1pt min.). @ -[None done] U/S interpreted by me (1pt. min.). @ -[None done] What testing was considered but not performed or refused? (CT, X-rays, U/S, labs)? Why? @ -[None] What meds were considered but not given or refused? Why? @ -[None] Did you discuss the management of the patient with other professionals (professionals i.e. , PA, FILM WASHER, lab, RT, psych nurse, social work coordinator, safety manager, teacher, chief lending officer, ed case manager)? Give summary @ -[Case discussed with admitting physician and with lode miner and there treatment recommendations incorporated Was smoking cessation discussed for >3mins.? @ -[No] Was critical care preformed (if so, how long)? @ -[Yes 45 minutes Were there social determinants of health that impacted care today? How? (Homelessness, low income, unemployed, alcoholism, drug addiction, transportation, low edu. Level, literacy, decrease access to med. care, correction, rehab)? @ -[No] Was there de-escalation of care discussed even if they declined (Discuss DNR or withdrawal of care, Hospice)? DNR status @ -[No] What co-morbidities impacted this encounter? (DM, HTN, Smoking, COPD, CAD, Cancer, CVA, ARF, Chemo, Hep., AIDS, mental health diagnosis, sleep apnea, morbid obesity)? @ -[Hypertension, congestive heart failure Was patient admitted / discharged? Hospital course, mention meds given and route, prescriptions, significant lab abnormalities, going to OR and other p ertinent info. @ -[Patient is admitted, see above Undiagnosed new problem with uncertain prognosis? @ -[No] Drug Therapy requiring intensive monitoring for toxicity (Heparin, Nitro, Insulin, Cardizem)? @ -[IV nitroglycerin administered and Cardizem Were any procedures done? @ -[No] Diagnosis/symptom? @ -[Acute hypertensive emergency Acute congestive heart failure Acute NSTEMI Acute hyperglycemia due to diabetes Acute, or Chronic, or Acute on Chronic? @ -[Acute Uncomplicated (without systemic symptoms) or Complicated (systemic symptoms)? @ -[Complicated by respiratory distress Side effects of treatment? @ -[No] Exacerbation, Progression, or Severe Exacerbation? @ -[No] Poses a threat to life or bodily function? How? (Chest pain, USA, SD, pneumonia, PE, COPD, DKA, ARF, appy, cholecystitis, CVA, Diverticulitis, Homicidal, Suicidal, threat to staff... and all critical care pts) @ -[Yes untreated hypertensive emergency with congestive heart failure will rapidly progressed to respiratory failure and - Lab Data Result diagrams: 02/03/23 08:36 02/03/23 08:36 Lab Results 02/01/23 02/01/23 02/01/23 Range/Units 17:32 17:32 17:32 WBC 12.8 H (3.8-10.6) k/uL RBC 4.63 (3.80-5.40) m/uL Hgb 14.0 (11.4-16.0) gm/dL Hct 43.0 (34.0-46.0) % MCV 92.9 (80.0-100.0) fL MCH 30.2 (25.0-35.0) pg MCHC 32.5 (31.0-37.0) g/dL RDW 14.0 (11.5-15.5) % Plt Count 340 (150-450) k/uL MPV 7.7 Neutrophils % 69 % Lymphocytes % 20 % Monocytes % 7 % Eosinophils % 1 % Basophils % 0 % Neutrophils # 8.8 H (1.3-7.7) k/uL Lymphocytes # 2.5 (1.0-4.8) k/uL Monocytes # 0.9 (0-1.0) k/uL Eosinophils # 0.2 (0-0.7) k/uL Basophils # 0.0 (0-0.2) k/uL PT 11.0 (10.0-12.5) sec INR 1.0 (<1.2) APTT 22.2 (22.0-30.0) sec Sodium 126 L (137-145) mmol/L Potassium 4.7 (3.5-5.1) mmol/L Chloride 93 L (98-107) mmol/L Carbon Dioxide 18 L (22-30) mmol/L Anion Gap 15 mmol/L BUN 9 (7-17) mg/dL Creatinine 0.42 L (0.52-1.04) mg/dL Est GFR (CKD-EPI)AfAm >90 (>60 ml/min/1.73 sqM) Est GFR (CKD-EPI)NonAf >90 (>60 ml/min/1.73 sqM) Glucose 209 H (74-99) mg/dL POC Glucose (mg/dL) (70-110) mg/dL POC Glu Loop Machine Operator ID Lactic Ac Sepsis Rflx Plasma Lactic Acid Bhanu (0.7-2.0) mmol/L Calcium 9.3 (8.4-10.2) mg/dL Total Bilirubin 1.4 H (0.2-1.3) mg/dL AST 27 (14-36) U/L ALT 17 (4-34) U/L Alkaline Phosphatase 93 (38-126) U/L Troponin I (0.000-0.034) ng/mL NT-Pro-B Natriuret Pep 4250 pg/mL Total Protein 7.4 (6.3-8.2) g/dL Albumin 4.8 (3.5-5.0) g/dL 02/01/23 02/01/23 02/01/23 Range/Units 17:32 17:32 17:34 WBC (3.8-10.6) k/uL RBC (3.80-5.40) m/uL Hgb (11.4-16.0) gm/dL Hct (34.0-46.0) % MCV (80.0-100.0) fL MCH (25.0-35.0) pg MCHC (31.0-37.0) g/dL RDW (11.5-15.5) % Plt Count (150-450) k/uL MPV Neutrophils % % Lymphocytes % % Monocytes % % Eosinophils % % Basophils % % Neutrophils # (1.3-7.7) k/uL Lymphocytes # (1.0-4.8) k/uL Monocytes # (0-1.0) k/uL Eosinophils # (0-0.7) k/uL Basophils # (0-0.2) k/uL PT (10.0-12.5) sec INR (<1.2) APTT (22.0-30.0) sec Sodium (137-145) mmol/L Potassium (3.5-5.1) mmol/L Chloride (98-107) mmol/L Carbon Dioxide (22-30) mmol/L Anion Gap mmol/L BUN (7-17) mg/dL Creatinine (0.52-1.04) mg/dL Est GFR (CKD-EPI)AfAm (>60 ml/min/1.73 sqM) Est GFR (CKD-EPI)NonAf (>60 ml/min/1.73 sqM) Glucose (74-99) mg/dL POC Glucose (mg/dL) 205 H (70-110) mg/dL POC Glu Loop Machine Operator ID Zee Correa Lactic Ac Sepsis Rflx Plasma Lactic Acid Bhanu 3.0 H* (0.7-2.0) mmol/L Calcium (8.4-10.2) mg/dL Total Bilirubin (0.2-1.3) mg/dL AST (14-36) U/L ALT (4-34) U/L Alkaline Phosphatase (38-126) U/L Troponin I 0.029 (0.000-0.034) ng/mL NT-Pro-B Natriuret Pep pg/mL Total Protein (6.3-8.2) g/dL Albumin (3.5-5.0) g/dL 02/01/23 Range/Units 18:17 WBC (3.8-10.6) k/uL RBC (3.80-5.40) m/uL Hgb (11.4-16.0) gm/dL Hct (34.0-46.0) % MCV (80.0-100.0) fL MCH (25.0-35.0) pg MCHC (31.0-37.0) g/dL RDW (11.5-15.5) % Plt Count (150-450) k/uL MPV Neutrophils % % Lymphocytes % % Monocytes % % Eosinophils % % Basophils % % Neutrophils # (1.3-7.7) k/uL Lymphocytes # (1.0-4.8) k/uL Monocytes # (0-1.0) k/uL Eosinophils # (0-0.7) k/uL Basophils # (0-0.2) k/uL PT (10.0-12.5) sec INR (<1.2) APTT (22.0-30.0) sec Sodium (137-145) mmol/L Potassium (3.5-5.1) mmol/L Chloride (98-107) mmol/L Carbon Dioxide (22-30) mmol/L Anion Gap mmol/L BUN (7-17) mg/dL Creatinine (0.52-1.04) mg/dL Est GFR (CKD-EPI)AfAm (>60 ml/min/1.73 sqM) Est GFR (CKD-EPI)NonAf (>60 ml/min/1.73 sqM) Glucose (74-99) mg/dL POC Glucose (mg/dL) (70-110) mg/dL POC Glu Loop Machine Operator ID Lactic Ac Sepsis Rflx Y Plasma Lactic Acid Bhanu (0.7-2.0) mmol/L Calcium (8.4-10.2) mg/dL Total Bilirubin (0.2-1.3) mg/dL AST (14-36) U/L ALT (4-34) U/L Alkaline Phosphatase (38-126) U/L Troponin I (0.000-0.034) ng/mL NT-Pro-B Natriuret Pep pg/mL Total Protein (6.3-8.2) g/dL Albumin (3.5-5.0) g/dL Critical Care Time Critical Care Time: Yes (45 minutes) Disposition Clinical Impression: Respiratory distress, Congestive heart failure, Hypertensive urgency Disposition: ADMITTED IP TO THIS HOSP Condition: Fair Is patient prescribed a controlled substance at d/c from ED?: No
--- NOTE | 2023-02-01 20:12 | XR ---
EXAM: XR chest 1V portable CLINICAL INDICATION:Female, 82 years old with history of dyspnea; [facility] COMPARISON: 01/01/2023 TECHNIQUE: Chest single view. FINDINGS: Lines/tubes/devices: EKG leads and extrinsic structures overlie the chest. No indwelling lines are s een. Cardiomediastinum: Cardiac silhouette appears stable, mildly enlarged Stable mediastinal silhouette. Atherosclerotic calcification of the aorta. Vasculature: Pulmonary vascular congestion and interstitial prominence suggesting edema and/or chron ic changes, as before. Lungs/pleura: No focal consolidation or pneumothorax evident. [id number] bilateral pleural effusions, left g reater than right, similar to previous. Bones/soft tissues: Bony thorax appears grossly intact as seen. Partially seen left humeral head arthroplasty. Regional s oft tissues appear unremarkable. IMPRESSION: Overall findings likely related to mild/moderate CHF, as above. Superposed infection not excluded in the proper clinical setting.
[2023-02-01 20:39] LABS: ABG Base Excess -0.5 mmol/L; ABG HCO3 24 mmol/L (21-25); ABG Oxygen Saturation 78.1 % (94-97); ABG PCO2 39 mmHg (35-45); ABG PH 7.41 (7.35-7.45); ABG TCO2 25 mmol/L (19-24); Allen Test Performed? Yes
[2023-02-01 21:27] LABS: ABG PO2 43 mmHg (83-108)
[2023-02-01] MEDS: FUROSEMIDE 10 MG/ML 4 ML VIAL IV SCH (22:30)
[2023-02-01] MEDS: MELATONIN 5 MG TABLET PO SCH (22:34)
[2023-02-02] MEDS: NITROGLYCERIN OINT 1 INCH/GM PACKET TOPICAL SCH ×4 (00:35→18:05)
[2023-02-02] MEDS ORDERED: LORazepam 0.5 MG TAB PO PRN (06:56)
[2023-02-02 08:38] LABS: Basophils % (A) 0 %; Eosinophils # (A) 0.1 k/uL (0-0.7); Eosinophils % (A) 1 %; HCT 38.4 % (34.0-46.0); Lymphocytes # (A) 0.8 k/uL (1.0-4.8); Lymphocytes % (A) 11 %; MCHC 33.8 g/dL (31.0-37.0); MCV 91.8 fL (80.0-100.0); Mean Platelet Volume 7.6; Monocytes # (A) 0.5 k/uL (0-1.0); Monocytes % (A) 7 %; Neutrophils # (A) 5.9 k/uL (1.3-7.7); Neutrophils % (A) 80 %; Platelet Count 276 k/uL (150-450); RBC 4.18 m/uL (3.80-5.40); WBC 7.4 k/uL (3.8-10.6)
--- NOTE | 2023-02-02 08:43 | P.HPIM ---
History of Present Illness This is a pleasant 82-year-old female with past medical history of GERD/Reflux, Hyperlipidemia, Hypertension, hypothyroidism, abdominal pain exacerbated by eating. Coronary artery disease status post stent Patient presents because of resp distress. Pt was on a non rebreather when she arrived with EMS/ Fire Dept. She was in this facility 12/31-is 01/03 for hypoxia, A. fib and possible CHF. Possible nonSTEMI , no cardiac cath done and she supposed to get stress test as an outpatient. she was discharged home supposed to get home oxygen. Patient continued to have more shortness of breath which was worse over the last few days without specific medication so she came to the hospital. At home currently she is not on oxygen. Chest pain. She has some dry cough. She cannot sleep flat. No GI, urinary or neurological symptoms on admission patient is afebrile blood pressure on the low side 99/66, this morning was 82/70, she was breathing at a rate of 9010 overnight and urinary morning. Slow heart rate at 64 which is low-normal On admission patient was hypoxic at 82 L/m and she was placed on the litter high flow nasal cannula Also on admission she was hypertensive 143/103. Labs showed mild leukocytosis of 12.8, rest of CBC is unremarkable INR, it is within the reference range Sodium is low 126, creatinine was 0.4. Glucose slightly elevated at 209 and lactic acid elevated 3.0. Total bilirubin 1.4, liver enzymes and determined. Troponin 0.02, 0.1. Chest elevated. ProBNP is 4250. Coronavirus not detected Chest x-ray: Bilateral lower lobe infiltrates suspicious for mild to moderate CHF and pneumonia cannot be excluded by chest x-ray. EKG shows sinus tachycardia with occasional supraventricular premature. Other EKG showed atrial fibrillation with a rate of 87 In the emergency room patient is started on Cardizem drip, IV Lasix 40 mg twice daily, pain management and nitroglycerin drip. Review of Systems Review of systems CONSTITUTIONAL: No fever, no malaise, no fatigue. HEENT: No recent visual problems or hearing problems. Denied any sore throat. CARDIOVASCULAR: No orthopnea, PND, no palpitations, no syncope. PULMONARY: No shortness of breath, no cough, no hemoptysis. GASTROINTESTINAL: No diarrhea, no nausea, no vomiting, no abdominal pain. Normoactive bowel sounds. NEUROLOGICAL: No headaches, no weakness, no numbness. HEMATOLOGICAL: Denies any bleeding or petechiae. GENITOURINARY: Denies any burning micturition, frequency, or urgency. MUSCULOSKELETAL/RHEUMATOLOGICAL: Denies any joint pain, swelling, or any muscle pain. ENDOCRINE: Denies any polyuria or polydipsia. Past Medical History Past Medical History: GERD/Reflux, Hyperlipidemia, Hypertension, Thyroid Disorder Additional Past Medical History / Comment(s): ABD PAIN. LOST APPETITE, EATING CAUSES PAIN. CHOL.-DIET CONTROLLED History of Any Multi-Drug Resistant Organisms: None Reported Past Surgical History: Heart Catheterization With Stent, Orthopedic Surgery Additional Past Surgical History / Comment(s): LT CAROTID ENDARTERECTOMY. LT SHOULDER SURGERY. LT ANKLE SURGERY WITH PLATE & SCREWS IN. COLONOSCOPY, ANGIOGRAM, Stent bilat.legs. Past Anesthesia/Blood Transfusion Reactions: No Reported Reaction Date of Last Stent Placement:: 2004 Past Psychological History: No Psychological Hx Reported Smoking Status: Former smoker Past Alcohol Use History: Occasional Past Drug Use History: None Reported - Past Family History Mother Family Medical History: No Reported History Medications and Allergies Home Medications Medication Instructions Recorded Confirmed Type RX: Levothyroxine Sodium 25 mcg PO DAILY 08/16/14 02/01/23 History [Synthroid] RX: Metoprolol Tartrate [Lopressor] 25 mg PO DAILY 08/16/14 02/01/23 History RX: Ezetimibe [Zetia] 10 mg PO DAILY 12/01/19 02/01/23 History RX: Sodium Bicarbonate 325 mg PO DAILY 12/23/22 02/01/23 History Apixaban [Eliquis] 2.5 mg PO BID 02/01/23 02/01/23 History LORazepam [Ativan] 0.5 mg PO HS PRN 02/01/23 02/01/23 History RX: Furosemide [Lasix] 20 mg PO DAILY PRN 02/01/23 02/01/23 History RX: Melatonin 5 mg PO HS 02/01/23 02/01/23 History Allergies Allergy/AdvReac Type Severity Reaction Status Date / Time Environmental-mold,dustmites,pollen Allergy sinus Uncoded 02/01/23 17:24 symptoms Physical Exam Vitals: Vital Signs Temp Pulse Resp BP Pulse Ox FiO2 02/02/23 06:00 64 10 L 82/70 98 02/02/23 05:30 64 9 L 92/57 98 02/02/23 05:00 66 10 L 105/73 97 02/02/23 04:30 84 23 110/71 95 02/02/23 04:00 99 17 99/66 02/02/23 03:30 69 18 114/78 96 02/02/23 03:00 80 20 104/72 96 02/02/23 02:37 72 20 104/72 99 02/02/23 02:30 73 20 68/53 97 02/02/23 02:00 58 L 9 L 66/52 100 02/02/23 01:30 61 10 L 74/53 97 02/02/23 01:00 59 L 9 L 84/58 02/02/23 00:30 61 18 91/65 96 02/02/23 00:26 65 18 91/65 96 02/02/23 00:00 68 22 62/48 96 02/01/23 23:34 73 18 71/58 97 02/01/23 23:30 67 20 72/45 97 02/01/23 23:02 64 23 72/45 96 02/01/23 23:00 65 14 89/67 97 02/01/23 22:45 74 16 86/61 94 L 02/01/23 22:30 75 14 85/56 96 02/01/23 22:15 70 13 92/72 95 02/01/23 22:00 71 9 L 92/70 94 L 02/01/23 21:54 80 18 92/70 95 02/01/23 21:51 92 L 02/01/23 21:45 78 15 90/67 92 L 02/01/23 21:30 80 16 81/56 92 L 02/01/23 21:15 77 15 90/63 91 L 02/01/23 21:00 70 29 H 81/49 92 L 02/01/23 20:56 74 18 81/49 92 L 02/01/23 20:45 73 25 H 85/58 91 L 02/01/23 20:30 79 26 H 80/65 94 L 02/01/23 20:15 78 18 87/61 98 02/01/23 20:00 76 29 H 93/64 99 02/01/23 19:42 97 25 H 79/48 97 02/01/23 19:30 89 33 H 85/59 97 02/01/23 19:15 105 H 22 92/65 96 02/01/23 19:05 93 30 H 92/65 96 02/01/23 18:45 93 27 H 95/70 94 L 02/01/23 18:42 96 02/01/23 18:31 96.5 F L 02/01/23 18:30 95 24 101/87 93 L 02/01/23 18:25 34 H 02/01/23 18:13 95 02/01/23 18:10 99 17 107/78 82 L 02/01/23 18:09 99 17 107/78 82 L 02/01/23 17:40 30 02/01/23 17:22 117 H 34 H 143/103 82 L Intake and Output 02/01/23 02/01/23 02/02/23 14:59 22:59 06:59 Intake Total 19.15 Balance 19.15 Intake: Intake, IV Titration 19.15 Amount Nitroglycerin-D5w Pmx 50 19.15 mg In Dextrose/Water 1 250ml.bag @ 5 MCG/MIN 1.5 mls/hr IV .Q24H ONE Rx#: [id number] Other: Weight 47.627 kg GENERAL: The patient is alert and oriented x3, not in any acute distress. Well developed, well nourished. HEENT: Pupils are round and equally reacting to light. EOMI. No scleral icterus. No conjunctival pallor. Normocephalic, atraumatic. No pharyngeal erythema. No thyromegaly. CARDIOVASCULAR: S1 and S2 present. No murmurs, rubs, or gallops. PULMONARY: Chest is clear to auscultation, no wheezing , no crackles. ABDOMEN: Soft, nontender, nondistended, normoactive bowel sounds. No palpable organomegaly. MUSCULOSKELETAL: No joint swelling or deformity. EXTREMITIES: No cyanosis, clubbing, or pedal edema. NEUROLOGICAL: Gross neurological examination did not reveal any focal deficits. SKIN: No rashes. no petechiae. Results CBC & Chem 7: 02/01/23 17:32 02/01/23 17:32 Labs: Abnormal Lab Results - Last 24 Hours (Table) 02/01/23 02/01/23 02/01/23 Range/Units 17:32 17:32 17:32 WBC 12.8 H (3.8-10.6) k/uL Neutrophils # 8.8 H (1.3-7.7) k/uL ABG pO2 (83-108) mmHg ABG Total CO2 (19-24) mmol/L ABG O2 Saturation (94-97) % Sodium 126 L (137-145) mmol/L Chloride 93 L (98-107) mmol/L Carbon Dioxide 18 L (22-30) mmol/L Creatinine 0.42 L (0.52-1.04) mg/dL Glucose 209 H (74-99) mg/dL POC Glucose (mg/dL) (70-110) mg/dL Osmolality (280-301) mosm/kg Plasma Lactic Acid Bhanu 3.0 H* (0.7-2.0) mmol/L Total Bilirubin 1.4 H (0.2-1.3) mg/dL Troponin I (0.000-0.034) ng/mL 02/01/23 02/01/23 02/01/23 Range/Units 17:34 20:28 20:30 WBC (3.8-10.6) k/uL Neutrophils # (1.3-7.7) k/uL ABG pO2 43 L* (83-108) mmHg ABG Total CO2 25 H (19-24) mmol/L ABG O2 Saturation 78.1 L (94-97) % Sodium (137-145) mmol/L Chloride (98-107) mmol/L Carbon Dioxide (22-30) mmol/L Creatinine (0.52-1.04) mg/dL Glucose (74-99) mg/dL POC Glucose (mg/dL) 205 H (70-110) mg/dL Osmolality (280-301) mosm/kg Plasma Lactic Acid Bhanu (0.7-2.0) mmol/L Total Bilirubin (0.2-1.3) mg/dL Troponin I 0.175 H* (0.000-0.034) ng/mL 02/01/23 02/02/23 Range/Units 20:37 00:03 WBC (3.8-10.6) k/uL Neutrophils # (1.3-7.7) k/uL ABG pO2 (83-108) mmHg ABG Total CO2 (19-24) mmol/L ABG O2 Saturation (94-97) % Sodium (137-145) mmol/L Chloride (98-107) mmol/L Carbon Dioxide (22-30) mmol/L Creatinine (0.52-1.04) mg/dL Glucose (74-99) mg/dL POC Glucose (mg/dL) (70-110) mg/dL Osmolality 265 L (280-301) mosm/kg Plasma Lactic Acid Bhanu (0.7-2.0) mmol/L Total Bilirubin (0.2-1.3) mg/dL Troponin I 0.159 H* (0.000-0.034) ng/mL Assessment and Plan Assessment: Acute congestive heart failure with bilateral pulmonary congestion and basal infiltrates, pneumonia cannot be excluded but less likely acute hypoxic respiratory failure Atrial fibrillation with RVR on admission Elevated troponin, possible recent non-STEMI Hyponatremia, hypervolemic Hyperglycemia, rule out diabetes mellitus Hypertension Hyperlipidemia History of coronary artery disease status post stenting Hypothyroidism History of GERD Plan: Continue with Cardizem drip Continue with IV Lasix Continue on blood thinner Eliquis Cardiology and pulmonology team CONSULT Check pro-calcitonin Labs and medication were reviewed.. Continue same treatment. Continue with symptomatic treatment. Resume home medication. Monitor labs and vitals. DVT and GI prophylaxis. Further recommendations as per clinical course of the patient DVT prophylaxis: eliquis GI Prophylaxis: Pepcid PT/OT: Pending Prognosis is guarded
[2023-02-02 08:51] LABS: African American GFR (CKD) >90 (>60 ml/min/1.73 sqM); Anion Gap 15 mmol/L; Blood Urea Nitrogen 8 mg/dL (7-17); Calcium 9.4 mg/dL (8.4-10.2); Carbon Dioxide 19 mmol/L (22-30); Chloride 95 mmol/L (98-107); Glucose 99 mg/dL (74-99); Non-African American GFR(CKD) >90 (>60 ml/min/1.73 sqM); Potassium 4.4 mmol/L (3.5-5.1); Sodium 129 mmol/L (137-145)
[2023-02-02] MEDS: EZETIMIBE 10 MG TAB PO SCH (09:26)
[2023-02-02] MEDS: APIXABAN 2.5 MG TABLET PO SCH ×2 (09:26→20:29)
[2023-02-02] MEDS: LEVOTHYROXINE 25 MCG TAB PO SCH (09:26)
[2023-02-02] MEDS: METOPROLOL TARTRATE 25 MG TAB PO SCH (09:26)
[2023-02-02] MEDS: FUROSEMIDE 10 MG/ML 4 ML VIAL IV SCH ×2 (09:27→20:29)
[2023-02-02] MEDS: SACUBITRIL/VALSARTAN 24 MG-26 MG TABLET PO SCH ×2 (12:57→20:28)
--- NOTE | 2023-02-02 14:01 | P.CRDCN ---
History of Present Illness Consult date: 02/02/23 History of present illness: HISTORY OF PRESENTING ILLNESS 82-year-old female with past medical history of hypertension, hypothermia, dyslipidemia, paroxysmal atrial fibrillation, cardiomyopathy with EF of 35% suspected to be ischemic. In December patient was admitted to the hospital with possible TIA. Workup at that time showed left common carotid artery stenosis, bilateral vertebral artery stenosis, subclavian artery stenosis as per the CTA. MRI brain did not show any foci of strokes. She was again admitted a week later. At that time she had mild elevation of troponin and concerns of possible pneumonia. She was also treated for c ongestive heart failure with Lasix and was advised to follow up outpatient for ischemic evaluation with a stress test. This time she present to the hospital with worsening shortness of breath. On te lemetry it is up. In that patient is in atrial fibrillation with rapid ventricular response. At the time of evaluation her heart rate was better controlled and she appeared to be in sinus rhythm. Echo from December 2022 showed a moderate MR, moderate left atrial dilatation, preserved LVEF. Repeat echo from 01/01/2023 showed an EF of 35-40%. REVIEW OF SYSTEMS 14 point review of system is negative except what is mentioned above in HPI. PHYSICAL EXAMINATION Vital signs reviewed. Head: Normocephalic. Eyes: Sclerae nonicteric. Neck: Brisk carotid upstroke, elevated JVD Lungs: Crackles in bilateral lung bases Heart: Irregular pulse with no murmurs Abdomen: Soft nontender, positive bowel sounds no organomegaly. Extremities: 1-2+ pitting edema in bilateral lower extremity Alert oriented, no focal neurological deficits ASSESSMENT Acute on chronic congestive heart failure HFrEF with in EF of 35-40%. Likely combination of tachycardia-induced cardio myopathy from underlying atrial fibrillation and ischemic cardiomyopathy Paroxysmal atrial fibrillation History of TIA History of recent pneumonia Frailty Dyslipidemia Hypothyroidism Plan Optimize heart failure medications. Start Entresto 24/ twice a day, Spiriva lactone 25 mg daily, continue metoprolol 25 mg twice a day. Add dapagliflozin 10 mg daily. Continue Eliquis 2.5 mg twice a day Continue Lasix 40 mg IV twice a day Obtain limited echo for EF May consider rhythm control strategy patient assist in atrial fibrillation and that atrial fibrillation contributes to her CHF exacerbation. Past Medical History Past Medical History: GERD/Reflux, Hyperlipidemia, Hypertension, Thyroid Disorder Additional Past Medical History / Comment(s): ABD PAIN. LOST APPETITE, EATING CAUSES PAIN. CHOL.-DIET CONTROLLED History of Any Multi-Drug Resistant Organisms: None Reported Past Surgical History: Heart Catheterization With Stent, Orthopedic Surgery Additional Past Surgical History / Comment(s): LT CAROTID ENDARTERECTOMY. LT SHOULDER SURGERY. LT ANKLE SURGERY WITH PLATE & SCREWS IN. COLONOSCOPY, ANGIOGRAM, Stent bilat.legs. Past Anesthesia/Blood Transfusion Reactions: No Reported Reaction Date of Last Stent Placement:: 2004 Past Psychological History: No Psychological Hx Reported Smoking Status: Former smoker Past Alcohol Use History: Occasional Past Drug Use History: None Reported - Past Family History Mother Family Medical History: No Reported History Medications and Allergies Home Medications Medication Instructions Recorded Confirmed Type Levothyroxine Sodium [Synthroid] 25 mcg PO DAILY 08/16/14 02/01/23 History Metoprolol Tartrate [Lopressor] 25 mg PO DAILY 08/16/14 02/01/23 History Ezetimibe [Zetia] 10 mg PO DAILY 12/01/19 02/01/23 History Sodium Bicarbonate 325 mg PO DAILY 12/23/22 02/01/23 History Apixaban [Eliquis] 2.5 mg PO BID 02/01/23 02/01/23 History Furosemide [Lasix] 20 mg PO DAILY PRN 02/01/23 02/01/23 History LORazepam [Ativan] 0.5 mg PO HS PRN 02/01/23 02/01/23 History Melatonin 5 mg PO HS 02/01/23 02/01/23 History Allergies Allergy/AdvReac Type Severity Reaction Status Date / Time Environmental-mold,dustmites,pollen Allergy sinus Uncoded 02/01/23 17:24 symptoms Physical Exam Vitals: Vital Signs Temp Pulse Resp BP Pulse Ox FiO2 02/02/23 13:39 98 02/02/23 12:49 85 18 146/85 96 02/02/23 11:50 95 02/02/23 09:31 103 H 24 146/98 95 02/02/23 07:00 93 16 90/64 93 L 02/02/23 06:43 62 16 90/64 99 02/02/23 06:30 62 14 82/61 98 02/02/23 06:00 64 10 L 82/70 98 02/02/23 05:30 64 9 L 92/57 98 02/02/23 05:00 66 10 L 105/73 97 02/02/23 04:30 84 23 110/71 95 02/02/23 04:00 99 17 99/66 02/02/23 03:30 69 18 114/78 96 02/02/23 03:00 80 20 104/72 96 02/02/23 02:37 72 20 104/72 99 02/02/23 02:30 73 20 68/53 97 02/02/23 02:00 58 L 9 L 66/52 100 02/02/23 01:30 61 10 L 74/53 97 02/02/23 01:00 59 L 9 L 84/58 02/02/23 00:30 61 18 91/65 96 02/02/23 00:26 65 18 91/65 96 02/02/23 00:00 68 22 62/48 96 02/01/23 23:34 73 18 71/58 97 02/01/23 23:30 67 20 72/45 97 02/01/23 23:02 64 23 72/45 96 02/01/23 23:00 65 14 89/67 97 02/01/23 22:45 74 16 86/61 94 L 02/01/23 22:30 75 14 85/56 96 02/01/23 22:15 70 13 92/72 95 02/01/23 22:00 71 9 L 92/70 94 L 02/01/23 21:54 80 18 92/70 95 02/01/23 21:51 92 L 02/01/23 21:45 78 15 90/67 92 L 02/01/23 21:30 80 16 81/56 92 L 02/01/23 21:15 77 15 90/63 91 L 02/01/23 21:00 70 29 H 81/49 92 L 02/01/23 20:56 74 18 81/49 92 L 02/01/23 20:45 73 25 H 85/58 91 L 02/01/23 20:30 79 26 H 80/65 94 L 02/01/23 20:15 78 18 87/61 98 02/01/23 20:00 76 29 H 93/64 99 02/01/23 19:42 97 25 H 79/48 97 02/01/23 19:30 89 33 H 85/59 97 02/01/23 19:15 105 H 22 92/65 96 02/01/23 19:05 93 30 H 92/65 96 02/01/23 18:45 93 27 H 95/70 94 L 02/01/23 18:42 96 02/01/23 18:31 96.5 F L 02/01/23 18:30 95 24 101/87 93 L 02/01/23 18:25 34 H 02/01/23 18:13 95 02/01/23 18:10 99 17 107/78 82 L 02/01/23 18:09 99 17 107/78 82 L 02/01/23 17:40 30 02/01/23 17:22 117 H 34 H 143/103 82 L Intake and Output 02/01/23 02/02/23 02/02/23 22:59 06:59 14:59 Intake Total 28.95 68.583 Balance 28.95 68.583 Intake: Intake, IV Titration 28.95 68.583 Amount Diltiazem 125 mg In 68.583 Sodium Chloride 0.9% 100 ml @ 5 MG/HR 5 mls/hr IV .Q24H [facility] Rx#:[id number] Nitroglycerin-D5w Pmx 50 28.95 mg In Dextrose/Water 1 250ml.bag @ 5 MCG/MIN 1.5 mls/hr IV .Q24H [facility] Rx#: [id number] Other: Weight 47.627 kg Results 02/02/23 07:55 02/02/23 07:55 Cardiac Enzymes 02/01/23 02/01/23 02/01/23 Range/Units 17:32 17:32 20:28 AST 27 (14-36) U/L Troponin I 0.029 0.175 H* (0.000-0.034) ng/mL 02/02/23 Range/Units 00:03 AST (14-36) U/L Troponin I 0.159 H* (0.000-0.034) ng/mL Coagulation 02/01/23 Range/Units 17:32 PT 11.0 (10.0-12.5) sec APTT 22.2 (22.0-30.0) sec CBC 02/01/23 02/02/23 Range/Units 17:32 07:55 WBC 12.8 H 7.4 (3.8-10.6) k/uL RBC 4.63 4.18 (3.80-5.40) m/uL Hgb 14.0 13.0 (11.4-16.0) gm/dL Hct 43.0 38.4 (34.0-46.0) % Plt Count 340 276 (150-450) k/uL Comprehensive Metabolic Panel 02/01/23 02/02/23 Range/Units 17:32 07:55 Sodium 126 L 129 L (137-145) mmol/L Potassium 4.7 4.4 (3.5-5.1) mmol/L Chloride 93 L 95 L (98-107) mmol/L Carbon Dioxide 18 L 19 L (22-30) mmol/L BUN 9 8 (7-17) mg/dL Creatinine 0.42 L 0.32 L (0.52-1.04) mg/dL Glucose 209 H 99 (74-99) mg/dL Calcium 9.3 9.4 (8.4-10.2) mg/dL AST 27 (14-36) U/L ALT 17 (4-34) U/L Alkaline Phosphatase 93 (38-126) U/L Total Protein 7.4 (6.3-8.2) g/dL Albumin 4.8 (3.5-5.0) g/dL Current Medications Generic Name Dose Route Start Last Admin Trade Name Freq PRN Reason Stop Dose Admin Acetaminophen 650 mg 02/02/23 07:00 Acetaminophen Tab 325 Mg Tab PO Q6HR PRN Headache Apixaban 2.5 mg 02/02/23 09:00 02/02/23 09:26 Apixaban 2.5 Mg Tablet PO 2.5 mg BID MORE Administration Protocol Dapagliflozin 10 mg 02/03/23 09:00 Dapagliflozin Propanediol 10 Mg Tablet PO DAILY MORE Ezetimibe 10 mg 02/02/23 09:00 02/02/23 09:26 Ezetimibe 10 Mg Tab PO 10 mg DAILY MORE Administration Furosemide 40 mg 02/01/23 19:30 02/02/23 09:27 Furosemide 10 Mg/Ml 4 Ml Vial IV 40 mg Q12HR MORE Administration Nitroglycerin/Dextrose 50 mg/ 250 mls @ 1.5 mls/hr 02/01/23 17:25 02/01/23 21:00 IV Solution IV 02/02/23 17:24 0 mcg/min .Q24H ONE 0 mls/hr Infusion 5 MCG/MIN Levothyroxine Sodium 25 mcg 02/02/23 09:00 02/02/23 09:26 Levothyroxine 25 Mcg Tab PO 25 mcg DAILY@0630 MORE Administration Lorazepam 0.5 mg 02/02/23 06:56 Lorazepam 0.5 Mg Tab PO HS PRN Anxiety Melatonin 10 mg 02/01/23 22:15 02/01/23 22:34 Melatonin 5 Mg Tablet PO 10 mg HS MORE Administration Metoprolol Tartrate 25 mg 02/02/23 09:00 02/02/23 09:26 Metoprolol Tartrate 25 Mg Tab PO 25 mg DAILY MORE Administration Nitroglycerin 1 inch 02/02/23 00:00 02/02/23 12:59 Nitroglycerin Oint 1 Inch/Gm Packet TOPICAL 02/03/23 00:01 1 inch Q6HR MORE Administration Sacubitril/Valsartan 1 each 02/02/23 11:30 02/02/23 12:57 Sacubitril/Valsartan 24 Mg-26 Mg Tablet PO 1 each BID MORE Administration Sodium Chloride 10 ml 02/01/23 21:00 02/02/23 09:26 Sodium Chloride 0.9% Flush 10 Ml Syringe IV 10 ml BID MORE Administration Spironolactone 25 mg 02/02/23 14:00 Spironolactone 25 Mg Tab PO DAILY MORE Intake and Output 02/01/23 02/02/23 02/02/23 22:59 06:59 14:59 Intake Total 28.95 68.583 Balance 28.95 68.583 Intake: Intake, IV Titration 28.95 68.583 Amount Diltiazem 125 mg In 68.583 Sodium Chloride 0.9% 100 ml @ 5 MG/HR 5 mls/hr IV .Q24H [facility] Rx#:[id number] Nitroglycerin-D5w Pmx 50 28.95 mg In Dextrose/Water 1 250ml.bag @ 5 MCG/MIN 1.5 mls/hr IV .Q24H [facility] Rx#: [id number] Other: Weight 47.627 kg 02/02/23 07:55 02/02/23 07:55
--- NOTE | 2023-02-02 14:43 | P.CNPUL ---
History of Present Illness Consult date: 02/02/23 Requesting physician: Mohinder Barker Reason for consult: dyspnea, hypoxemia, abnormal CXR/CT Chief complaint: Shortness of breath History of present illness: This is a pleasant 82-year-old female patient with a known history of paroxysmal atrial fibrillation anticoagulated with Eliquis, hypertension, hyperlipidemia, hypothyroidism, congestive heart failure. She has impaired left ventricular s ystolic function with ejection fraction 35-40% with global hypokinesis. She was discharged from here following a non-ST segment elevation myocardial infarction and CHF exacerbation one month ago. She presented back to the emergency room yesterday with complaints of increasing shortness of breath. It came on quite suddenly yesterday afternoon. She initially required BiPAP 10/5 and 30% FiO2 to maintain O2 saturations in the 90s. She was alternating with 15 L high flow nasal cannula. X-ray shows [id number] bilateral pleural effusions left greater than right and pulmonary vascular congestion consistent with congestive heart failure. White count 7.4. Hemoglobin 13.0. Sodium 129. Potassium 4.4. Bicarb 19. BUN 8. Creatinine 0.32. Troponins 0.175, 0.159. BNP 4250 Pro-calcitonin 0.58. Arterial blood gases on 50% FiO2 revealed a PaO2 of 43, pCO2 of 39 and a pH of 7.41. [place] virus not detected. She is seen today in consultation in the emergency department. She is currently sitting up on the stretcher. Awake and alert. Dyspneic with minimal conversation. Dyspneic with minimal exertion. Currently on 10 L high flow nasal cannula. Review of Systems REVIEW OF SYSTEMS: CONSTITUTIONAL: Denies any recent significant weight loss or weight gain. EYES: Denies change in vision. EARS, NOSE, MOUTH, THROAT: Denies headaches, denies sore throat. CARDIOVASCULAR: Denies chest pain, palpitations or syncopal episodes. RESPIRATORY: Positive for shortness of breath, no cough, congestion or hemoptysis. GASTROINTESTINAL: Denies change in appetite, denies abdominal pain GENITOURINARY: Denies hematuria, denies infections. MUSKULOSKELETAL: Denies pain, denies swelling. INTEGUMENTARY: Denies rash, denies eczema. NEUROLOGICAL: Denies recent memory loss, no recent seizure activity. PSYCHIATRIC: Denies anxiety, denies depression. HEMATOLOGIC/LYMPHATIC: Denies anemia, denies enlarged lymph nodes. Past Medical History Past Medical History: GERD/Reflux, Hyperlipidemia, Hypertension, Thyroid Disorder Additional Past Medical History / Comment(s): ABD PAIN. LOST APPETITE, EATING CAUSES PAIN. CHOL.-DIET CONTROLLED History of Any Multi-Drug Resistant Organisms: None Reported Past Surgical History: Heart Catheterization With Stent, Orthopedic Surgery Additional Past Surgical History / Comment(s): LT CAROTID ENDARTERECTOMY. LT SHOULDER SURGERY. LT ANKLE SURGERY WITH PLATE & SCREWS IN. COLONOSCOPY, ANG IOGRAM, Stent bilat.legs. Past Anesthesia/Blood Transfusion Reactions: No Reported Reaction Date of Last Stent Placement:: 2004 Past Psychological History: No Psychological Hx Reported Smoking Status: Former smoker Past Alcohol Use History: Occasional Past Drug Use History: None Reported - Past Family History Mother Family Medical History: No Reported History Medications and Allergies Home Medications Medication Instructions Recorded Confirmed Type Levothyroxine Sodium [Synthroid] 25 mcg PO DAILY 08/16/14 02/01/23 History Metoprolol Tartrate [Lopressor] 25 mg PO DAILY 08/16/14 02/01/23 History Ezetimibe [Zetia] 10 mg PO DAILY 12/01/19 02/01/23 History Sodium Bicarbonate 325 mg PO DAILY 12/23/22 02/01/23 History Apixaban [Eliquis] 2.5 mg PO BID 02/01/23 02/01/23 History Furosemide [Lasix] 20 mg PO DAILY PRN 02/01/23 02/01/23 History LORazepam [Ativan] 0.5 mg PO HS PRN 02/01/23 02/01/23 History Melatonin 5 mg PO HS 02/01/23 02/01/23 History Allergies Allergy/AdvReac Type Severity Reaction Status Date / Time Environmental-mold,dustmites,pollen Allergy sinus Uncoded 02/01/23 17:24 symptoms Physical Exam Vitals: Vital Signs Temp Pulse Resp BP Pulse Ox FiO2 02/02/23 13:39 98 02/02/23 12:49 85 18 146/85 96 02/02/23 11:50 95 02/02/23 09:31 103 H 24 146/98 95 02/02/23 07:00 93 16 90/64 93 L 02/02/23 06:43 62 16 90/64 99 02/02/23 06:30 62 14 82/61 98 02/02/23 06:00 64 10 L 82/70 98 02/02/23 05:30 64 9 L 92/57 98 02/02/23 05:00 66 10 L 105/73 97 02/02/23 04:30 84 23 110/71 95 02/02/23 04:00 99 17 99/66 02/02/23 03:30 69 18 114/78 96 02/02/23 03:00 80 20 104/72 96 02/02/23 02:37 72 20 104/72 99 02/02/23 02:30 73 20 68/53 97 02/02/23 02:00 58 L 9 L 66/52 100 02/02/23 01:30 61 10 L 74/53 97 02/02/23 01:00 59 L 9 L 84/58 02/02/23 00:30 61 18 91/65 96 02/02/23 00:26 65 18 91/65 96 02/02/23 00:00 68 22 62/48 96 02/01/23 23:34 73 18 71/58 97 02/01/23 23:30 67 20 72/45 97 02/01/23 23:02 64 23 72/45 96 02/01/23 23:00 65 14 89/67 97 02/01/23 22:45 74 16 86/61 94 L 02/01/23 22:30 75 14 85/56 96 02/01/23 22:15 70 13 92/72 95 02/01/23 22:00 71 9 L 92/70 94 L 02/01/23 21:54 80 18 92/70 95 02/01/23 21:51 92 L 02/01/23 21:45 78 15 90/67 92 L 02/01/23 21:30 80 16 81/56 92 L 02/01/23 21:15 77 15 90/63 91 L 02/01/23 21:00 70 29 H 81/49 92 L 02/01/23 20:56 74 18 81/49 92 L 02/01/23 20:45 73 25 H 85/58 91 L 02/01/23 20:30 79 26 H 80/65 94 L 02/01/23 20:15 78 18 87/61 98 02/01/23 20:00 76 29 H 93/64 99 02/01/23 19:42 97 25 H 79/48 97 02/01/23 19:30 89 33 H 85/59 97 02/01/23 19:15 105 H 22 92/65 96 02/01/23 19:05 93 30 H 92/65 96 02/01/23 18:45 93 27 H 95/70 94 L 02/01/23 18:42 96 02/01/23 18:31 96.5 F L 02/01/23 18:30 95 24 101/87 93 L 02/01/23 18:25 34 H 02/01/23 18:13 95 02/01/23 18:10 99 17 107/78 82 L 02/01/23 18:09 99 17 107/78 82 L 02/01/23 17:40 30 02/01/23 17:22 117 H 34 H 143/103 82 L Intake and Output 02/01/23 02/02/23 02/02/23 22:59 06:59 14:59 Intake Total 28.95 68.583 Balance 28.95 68.583 Intake: Intake, IV Titration 28.95 68.583 Amount Diltiazem 125 mg In 68.583 Sodium Chloride 0.9% 100 ml @ 5 MG/HR 5 mls/hr IV .Q24H [facility] Rx#:[id number] Nitroglycerin-D5w Pmx 50 28.95 mg In Dextrose/Water 1 250ml.bag @ 5 MCG/MIN 1.5 mls/hr IV .Q24H [facility] Rx#: [id number] Other: Weight 47.627 kg GENERAL EXAM: Alert, doesn't 82-year-old female, on 10 L high flow nasal cannula, fairly comfortable in mild respiratory distress. HEAD: Normocephalic. EYES: Normal reaction of pupils, equal size. NOSE: Clear with pink turbinates. THROAT: No erythema or exudates. NECK: No masses, no JVD. CHEST: No chest wall deformity. LUNGS: Equal air entry with basilar crackles. CVS: S1 and S2 normal with no audible murmur, regular rhythm. ABDOMEN: No hepatosplenomegaly, normal bowel sounds, no guarding or rigidity. SPINE: No scoliosis or deformity SKIN: No rashes CENTRAL NERVOUS SYSTEM: No focal deficits, tone is normal in all 4 extremities. EXTREMITIES: There is trace peripheral edema. No clubbing, no cyanosis. Peripheral pulses are intact. Results - Laboratory Findings CBC and BMP: 02/02/23 07:55 02/02/23 07:55 ABG ABG pH 7.41 (7.35-7.45) 02/01/23 20:30 ABG pCO2 39 mmHg (35-45) 02/01/23 20:30 ABG pO2 43 mmHg (83-108) L* 02/01/23 20:30 ABG O2 Saturation 78.1 % (94-97) L 02/01/23 20:30 PT/INR, D-dimer PT 11.0 sec (10.0-12.5) 02/01/23 17:32 INR 1.0 (<1.2) 02/01/23 17:32 Abnormal lab findings: Abnormal Labs 02/01/23 02/01/23 02/01/23 17:32 17:32 17:32 WBC 12.8 H Neutrophils # 8.8 H Lymphocytes # ABG pO2 ABG Total CO2 ABG O2 Saturation Sodium 126 L Chloride 93 L Carbon Dioxide 18 L Creatinine 0.42 L Glucose 209 H POC Glucose (mg/dL) Osmolality Plasma Lactic Acid Bhanu 3.0 H* Total Bilirubin 1.4 H Troponin I Procalcitonin 02/01/23 02/01/23 02/01/23 17:34 20:28 20:30 WBC Neutrophils # Lymphocytes # ABG pO2 43 L* ABG Total CO2 25 H ABG O2 Saturation 78.1 L Sodium Chloride Carbon Dioxide Creatinine Glucose POC Glucose (mg/dL) 205 H Osmolality Plasma Lactic Acid Bhanu Total Bilirubin Troponin I 0.175 H* Procalcitonin 02/01/23 02/02/23 02/02/23 20:37 00:03 07:55 WBC Neutrophils # Lymphocytes # 0.8 L ABG pO2 ABG Total CO2 ABG O2 Saturation Sodium Chloride Carbon Dioxide Creatinine Glucose POC Glucose (mg/dL) Osmolality 265 L Plasma Lactic Acid Bhanu Total Bilirubin Troponin I 0.159 H* Procalcitonin 02/02/23 02/02/23 07:55 07:55 WBC Neutrophils # Lymphocytes # ABG pO2 ABG Total CO2 ABG O2 Saturation Sodium 129 L Chloride 95 L Carbon Dioxide 19 L Creatinine 0.32 L Glucose POC Glucose (mg/dL) Osmolality Plasma Lactic Acid Bhanu Total Bilirubin Troponin I Procalcitonin 0.58 H - Diagnostic Findings Chest x-ray: image reviewed Assessment and Plan Assessment: Acute hypoxemic respiratory failure secondary to an acute exacerbation of systolic congestive heart failure. Recent echocardiogram revealed ejection fraction 35-40 % Recent admission for non-ST segment elevation myocardial infarction and CHF exacerbation Atrial fibrillation with varying ventricular response, anticoagulated with Eliquis Hyponatremia Ischemic cardiomyopathy Coronary artery disease with previous stent placement Left carotid artery stenosis Hypertension Hyperlipidemia Hypothyroidism Former smoker Plan: The patient was seen and evaluated Chest x-ray, ABGs, labs and medications reviewed Procalcitonin is elevated No evidence of pneumonia Check a urinalysis Continue IV diuretics Titrate the FiO2 as tolerated Prognosis is guarded DO NOT RESUSCITATE/DO NOT INTUBATE CODE STATUS We will continue to follow and make further recommendations based on her clinical status I have personally seen and examined the patient, performed the documentation and the assessment and plan as written. Number of minutes spent on the visit: 20.
[2023-02-02] MEDS: SPIRONOLACTONE 25 MG TAB PO SCH (15:24)
[2023-02-02 18:00] LABS: Appearance,Urine Cloudy (Clear); Bacteria,Urine Few /hpf; Bilirubin,Urine Negative (Negative); Blood,Urine Negative (Negative); Color,Urine Yellow; Glucose,Urine (UA) Negative (Negative); Hyaline Casts,Urine 4 /lpf (0-2); Ketones,Urine Negative (Negative); Leukocyte Esterase,Urine Large (Negative); Mucus,Urine Many /hpf; Nitrite,Urine Negative (Negative); Protein,Urine Trace (Negative); RBC,Urine 3 /hpf (0-5); Specific Gravity,Urine 1.019 (1.001-1.035); Squamous Epithelial Cell,Urine 1 /hpf (0-4); Urobilinogen,Urine <2.0 mg/dL (<2.0); WBC,Urine >182 /hpf (0-5)
[2023-02-02] MEDS: MELATONIN 5 MG TABLET PO SCH (20:29)
[2023-02-03] MEDS: PIPERACILLIN-TAZOBACTAM 3.375 GM in SODIUM CHLORIDE 0.9% 100 ML IVPB SCH ×4 (00:37→23:39)
[2023-02-03] MEDS: NITROGLYCERIN OINT 1 INCH/GM PACKET TOPICAL SCH (00:37)
[2023-02-03] MEDS: LEVOTHYROXINE 25 MCG TAB PO SCH (06:23)
[2023-02-03] MEDS: METOPROLOL TARTRATE 25 MG TAB PO SCH (09:25)
[2023-02-03] MEDS: DAPAGLIFLOZIN PROPANEDIOL 10 MG TABLET PO SCH (09:26)
[2023-02-03] MEDS: FAMOTIDINE 20 MG/2 ML VIAL IV SCH ×2 (09:26→21:35)
[2023-02-03] MEDS: FUROSEMIDE 10 MG/ML 4 ML VIAL IV SCH ×2 (09:26→21:35)
[2023-02-03] MEDS: EZETIMIBE 10 MG TAB PO SCH (09:26)
[2023-02-03] MEDS: APIXABAN 2.5 MG TABLET PO SCH ×2 (09:26→22:55)
[2023-02-03] MEDS: SACUBITRIL/VALSARTAN 24 MG-26 MG TABLET PO SCH ×2 (09:26→21:36)
[2023-02-03] MEDS: SPIRONOLACTONE 25 MG TAB PO SCH (09:26)
[2023-02-03 09:30] LABS: Basophils % (A) 0 %; Eosinophils # (A) 0.1 k/uL (0-0.7); Eosinophils % (A) 2 %; HCT 38.5 % (34.0-46.0); HGB 12.6 gm/dL (11.4-16.0); Lymphocytes % (A) 16 %; MCH 29.7 pg (25.0-35.0); MCHC 32.7 g/dL (31.0-37.0); MCV 90.7 fL (80.0-100.0); Mean Platelet Volume 7.6; Monocytes # (A) 0.6 k/uL (0-1.0); Monocytes % (A) 9 %; Neutrophils # (A) 4.4 k/uL (1.3-7.7); Neutrophils % (A) 71 %; Platelet Count 296 k/uL (150-450); RBC 4.24 m/uL (3.80-5.40); RDW 13.9 % (11.5-15.5); WBC 6.2 k/uL (3.8-10.6)
[2023-02-03 09:44] LABS: African American GFR (CKD) >90 (>60 ml/min/1.73 sqM); Anion Gap 9 mmol/L; Blood Urea Nitrogen 13 mg/dL (7-17); Calcium 9.1 mg/dL (8.4-10.2); Carbon Dioxide 24 mmol/L (22-30); Chloride 98 mmol/L (98-107); Glucose 108 mg/dL (74-99); Non-African American GFR(CKD) >90 (>60 ml/min/1.73 sqM); Potassium 3.8 mmol/L (3.5-5.1); Sodium 131 mmol/L (137-145)
--- NOTE | 2023-02-03 11:33 | P.PN ---
Subjective This is a pleasant 82-year-old female with past medical history of GERD/Reflux, Hyperlipidemia, Hypertension, hypothyroidism, abdominal pain exacerbated by eating. Coronary artery disease status post stent Patient presents because of resp distress. Pt was on a non rebreather when she arrived with EMS/ Fire Dept. She was in this facility 12/31-is 01/03 for hypoxia, A. fib and possible CHF. Possible nonSTEMI , no cardiac cath done and she supposed to get stress test as an outpatient. she was discharged home supposed to get home oxygen. Patient continued to have more shortness of breath which was worse over the last few days without specific medication so she came to the hospital. At home currently she is not on oxygen. Chest pain. She has some dry cough. She cannot sleep flat. No GI, urinary or neurological symptoms on admission patient is afebrile blood pressure on the low side 99/66, this morning was 82/70, she was breathing at a rate of 9010 overnight and urinary morning. Slow heart rate at 64 which is low-normal On admission patient was hypoxic at 82 L/m and she was placed on the litter high flow nasal cannula Also on admission she was hypertensive 143/103. Labs showed mild leukocytosis of 12.8, rest of CBC is unremarkable INR, it is within the reference range Sodium is low 126, creatinine was 0.4. Glucose slightly elevated at 209 and lactic acid elevated 3.0. Total bilirubin 1.4, liver enzymes and determined. Troponin 0.02, 0.1. Chest elevated. ProBNP is 4250. Coronavirus not detected Chest x-ray: Bilateral lower lobe infiltrates suspicious for mild to moderate CHF and pneumonia cannot be excluded by chest x-ray. EKG shows sinus tachycardia with occasional supraventricular premature. Other EKG showed atrial fibrillation with a rate of 87 In the emergency room patient is started on Cardizem drip, IV Lasix 40 mg twice daily, pain management and nitroglycerin drip. 02/03/2023 Patient breathing is improving and oxygen requirements down to 4 L/m this morning She is able to eat and talked ECF. Prior discuss stone and a 0.57, t She remains on liquids home dose of 2.5, IV Lasix 40 mg twice daily and Zosyn. Antibiotic, stretched Augmentin Possible discharge in 24-48 hours if she keeps improving and cleared by other services team Objective - Vital Signs Vital signs: Vital Signs Temp 98 F 02/03/23 09:25 Pulse 85 02/03/23 09:25 Resp 18 02/03/23 09:25 BP 116/56 02/03/23 09:25 Pulse Ox 95 02/03/23 09:25 FiO2 30 02/01/23 17:40 Intake & Output 02/02/23 02/03/23 02/03/23 18:59 06:59 18:59 Intake Total 68.583 0 358 Balance 68.583 0 358 Weight 47 kg Intake: Intake, IV Titration 68.583 Amount Diltiazem 125 mg In 68.583 Sodium Chloride 0.9% 100 ml @ 5 MG/HR 5 mls/hr IV .Q24H [facility] Rx#:[id number] Oral 0 358 Other: Voiding Method Bedside Commode Bedside Commode # Voids 3 3 - Exam GENERAL: The patient is alert and oriented x3, not in any acute distress. Well developed, well nourished. HEENT: Pupils are round and equally reacting to light. EOMI. No scleral icterus. No conjunctival pallor. Normocephalic, atraumatic. No pharyngeal erythema. No thyromegaly. CARDIOVASCULAR: S1 and S2 present. No murmurs, rubs, or gallops. -PULMONARY: Chest is clear to auscultation, no wheezing , bilateral crepitation ABDOMEN: Soft, nontender, nondistended, normoactive bowel sounds. No palpable organomegaly. MUSCULOSKELETAL: No joint swelling or deformity. EXTREMITIES: No cyanosis, clubbing, or pedal edema. NEUROLOGICAL: Gross neurological examination did not reveal any focal deficits. SKIN: No rashes. no petechiae. - Labs CBC & Chem 7: 02/03/23 08:36 02/03/23 08:36 Labs: Abnormal Lab Results - Last 24 Hours (Table) 02/02/23 02/02/23 02/03/23 Range/Units 07:55 17:40 08:36 Sodium 131 L (137-145) mmol/L Creatinine 0.46 L (0.52-1.04) mg/dL Glucose 108 H (74-99) mg/dL Procalcitonin 0.58 H (0.02-0.09) ng/mL Urine Appearance Cloudy H (Clear) Urine Protein Trace H (Negative) Ur Leukocyte Esterase Large H (Negative) Urine WBC >182 H (0-5) /hpf Urine Bacteria Few H (None) /hpf Hyaline Casts 4 H (0-2) /lpf Urine Mucus Many H (None) /hpf Assessment and Plan Assessment: Acute congestive heart failure with bilateral pulmonary congestion and basal infiltrates, pneumonia cannot be excluded but less likely acute hypoxic respiratory failure Atrial fibrillation with RVR on admission Elevated troponin, possible recent non-STEMI Hyponatremia, hypervolemic Hyperglycemia, rule out diabetes mellitus Hypertension Hyperlipidemia History of coronary artery disease status post stenting Hypothyroidism History of GERD Plan: Continue with Cardizem drip Continue with IV Lasix Continue on blood thinner Eliquis Change antibiotics to Augmentin Cardiology and pulmonology team CONSULT Labs and medication were reviewed.. Continue same treatment. Continue with symptomatic treatment. Resume home medication. Monitor labs and vitals. DVT and GI prophylaxis. Further recommendations as per clinical course of the patient DVT prophylaxis: eliquis GI Prophylaxis: Pepcid PT/OT: Pending Prognosis is guarded
[2023-02-03] MEDS: ACETAMINOPHEN TAB 325 MG TAB PO PRN ×2 (11:58→21:35)
--- NOTE | 2023-02-03 12:35 | P.PN ---
Subjective Progress Note Date: 02/03/23 Progress note With addition of an medical therapy, patient's creatinine blood pressure has stayed stable. She is maintaining sinus rhythm. We will continue this regimen. Consider transitioning to by mouth diuretic tomorrow HISTORY OF PRESENTING ILLNESS 82-year-old female with past medical history of hypertension, hypothermia, dyslipidemia, paroxysmal atrial fibrillation, cardiomyopathy with EF of 35% suspected to be ischemic. In December patient was admitted to the hospital with possible TIA. Workup at that time showed left common carotid artery stenosis, bilateral vertebral artery stenosis, subclavian artery stenosis as per the CTA. MRI brain did not show any foci of strokes. She was again admitted a week later. At that time she had mild elevation of troponin and concerns of possible pneumonia. She was also treated for congestive heart failure with Lasix and was advised to follow up outpatient for ischemic evaluation with a stress test. This time she present to the hospital with worsening shortness of breath. On telemetry it is up. In that patient is in atrial fibrillation with rapid ventricular response. At the time of evaluation her heart rate was better controlled and she appeared to be in sinus rhythm. Echo from December 2022 showed a moderate MR, moderate left atrial dilatation, preserved LVEF. Repeat echo from 01/01/2023 showed an EF of 35-40%. REVIEW OF SYSTEMS 14 point review of system is negative except what is mentioned above in HPI. PHYSICAL EXAMINATION Vital signs reviewed. Head: Normocephalic. Eyes: Sclerae nonicteric. Neck: Brisk carotid upstroke, elevated JVD Lungs: Crackles in bilateral lung bases Heart: Irregular pulse with no murmurs Abdomen: Soft nontender, positive bowel sounds no organomegaly. Extremities: 1-2+ pitting edema in bilateral lower extremity Alert oriented, no focal neurological deficits ASSESSMENT Acute on chronic congestive heart failure HFrEF with in EF of 35-40%. Likely combination of tachycardia-induced cardio myopathy from underlying atrial fibrillation and ischemic cardiomyopathy Paroxysmal atrial fibrillation History of TIA History of recent pneumonia Frailty Dyslipidemia Hypothyroidism Plan Optimize heart failure medications. Start Entresto 24/ twice a day, Spiriva lactone 25 mg daily, continue metoprolol 25 mg twice a day. Add dapagliflozin 10 mg daily. Continue Eliquis 2.5 mg twice a day Continue Lasix 40 mg IV twice a day Obtain limited echo for EF patient's creatinine blood pressure has stayed stable. She is maintaining sinus rhythm. We will continue this regimen. Consider transitioning to by mouth diuretic tomorrow May consider rhythm control strategy patient assist in atrial fibrillation and that atrial fibrillation contributes to her CHF exacerbation. Objective - Vital Signs Vital signs: Vital Signs Temp 98 F 02/03/23 09:25 Pulse 85 02/03/23 09:25 Resp 18 02/03/23 09:25 BP 116/56 02/03/23 09:25 Pulse Ox 95 02/03/23 09:25 FiO2 30 02/01/23 17:40 Intake & Output 02/02/23 02/03/23 02/03/23 18:59 06:59 18:59 Intake Total 68.583 0 358 Balance 68.583 0 358 Weight 47 kg Intake: Intake, IV Titration 68.583 Amount Diltiazem 125 mg In 68.583 Sodium Chloride 0.9% 100 ml @ 5 MG/HR 5 mls/hr IV .Q24H [facility] Rx#:[id number] Oral 0 358 Other: Voiding Method Bedside Commode Bedside Commode # Voids 3 2 - Labs CBC & Chem 7: 02/03/23 08:36 02/03/23 08:36 Labs: Abnormal Lab Results - Last 24 Hours (Table) 02/02/23 02/02/23 02/03/23 Range/Units 07:55 17:40 08:36 Sodium 131 L (137-145) mmol/L Creatinine 0.46 L (0.52-1.04) mg/dL Glucose 108 H (74-99) mg/dL Procalcitonin 0.58 H (0.02-0.09) ng/mL Urine Appearance Cloudy H (Clear) Urine Protein Trace H (Negative) Ur Leukocyte Esterase Large H (Negative) Urine WBC >182 H (0-5) /hpf Urine Bacteria Few H (None) /hpf Hyaline Casts 4 H (0-2) /lpf Urine Mucus Many H (None) /hpf
--- NOTE | 2023-02-03 14:40 | CA ---
Transthoracic Echo Report Name: Ekaterina Robertson Age: 82 Gender: F : 1940 Exam Date: 02/02/2023 16:09 Exam Location: [facility] Ht (in): 60 Wt (lb): 105 Ordering Physician: Elaizar Manley MD ([id number]) Attending/Referring Phys: Motor Vehicle Escort Driver Promise Suero [facility] Procedure CPT: Indications: CHF, assess EF Cardiac Hx: Technical Quality: Fair Contrast 1: Total Dose (mL): Contrast 2: Total Dose (mL): MEASUREMENTS (Male / Female) Normal Values 2D ECHO LV Diastolic Diameter PLAX 3.3 cm 4.2 - 5.9 / 3.9 - 5.3 cm LV Systolic Diameter PLAX 2.7 cm IVS Diastolic Thickness 1.2 cm 0.6 - 1.0 / 0.6 - 0.9 cm LVPW Diastolic Thickness 1.4 cm 0.6 - 1.0 / 0.6 - 0.9 cm LV Relative Wall Thickness 0.8 LV Diastolic Volume MOD BP 46.2 cm??? 67 - 155 / 56 - 104 cm??? LV Systolic Volume MOD BP 25.0 cm??? 22 - 58 / 19 - 49 cm??? LV Ejection Fraction MOD BP 45.9 % >= 55 % LV Cardiac Index MOD BP 1209.4 cm???/min???m??? LV Diastolic Volume MOD 4C 46.9 cm??? LV Systolic Volume MOD 4C 21.7 cm??? LV Ejection Fraction MOD 4C 53.8 % LV Cardiac Index MOD 4C 1439.7 cm???/min???m??? LV Diastolic Length 4C 6.3 cm LV Systolic Length 4C 5.1 cm LV Diastolic Volume MOD 2C 45.5 cm??? LV Systolic Volume MOD 2C 27.4 cm??? LV Ejection Fraction MOD 2C 39.9 % LV Cardiac Index MOD 2C 1036.7 cm???/min???m??? LV Diastolic Length 2C 6.2 cm LV Systolic Length 2C 5.6 cm DOPPLER Mitral E Point Velocity 96.6 cm/s Mitral A Point Velocity 81.5 cm/s Mitral E to A Ratio 1.2 MV Deceleration Time 247.5 ms LV E' Lateral Velocity 7.5 cm/s Mitral E to LV E' Lateral Ratio 12.8 LV E' Septal Velocity 4.2 cm/s Mitral E to LV E' Septal Ratio 22.9 TR Peak Velocity 266.8 cm/s TR Peak Gradient 28.5 mmHg Right Atrial Pressure 8.0 mmHg Pulmonary Artery Systolic Pressu 36.5 mmHg Right Ventricular Systolic Press 36.5 mmHg FINDINGS Left Ventricle Mildly increased septal wall thickness. Moderately increased posterior wall thickness. Mildly decreased left ventricular ejection fraction. Small left ventricular cavity. Left ventricular ejection fraction is estimated at 50-55%. Right Ventricle Normal right ventricular size. Mild pulmonary hypertension. Right Atrium Left Atrium Mitral Valve Aortic Valve Tricuspid Valve Trace tricuspid regurgitation. Pulmonic Valve Pericardium Aorta CONCLUSIONS Limited study.Left ventricular ejection fraction is estimated at 50-55%. no regional wall motion abnormality severe la dilation Previewed by: Dr Eliazar Manley (Electronically Signed) Final Date: 03 February 2023 14:39
--- NOTE | 2023-02-03 15:02 | P.PN ---
Subjective Progress Note Date: 02/03/23 Principal diagnosis: Acute hypoxic respiratory failure secondary to acute exacerbation of systolic congestive heart failure This is a pleasant 82-year-old female patient with a known history of paroxysmal atrial fibrillation anticoagulated with Eliquis, hypertension, hyperlipidemia, hypothyroidism, congestive heart failure. She has impaired left ventricular systolic function with ejection fraction 35-40% with global hypokinesis. She was discharged from here following a non-ST segment elevation myocardial infarction and CHF exacerbation one month ago. She presented back to the emergency room yesterday with complaints of increasing shortness of breath. It came on quite suddenly yesterday afternoon. She initially required BiPAP 10/5 and 30% FiO2 to maintain O2 saturations in the 90s. She was alternating with 15 L high flow nasal cannula. X-ray shows [id number] bilateral pleural effusions left greater than right and pulmonary vascular congestion consistent with congestive heart failure. White count 7.4. Hemoglobin 13.0. Sodium 129. Potassium 4.4. Bicarb 19. BUN 8. Creatinine 0.32. Troponins 0.175, 0.159. BNP 4250 Pro-calcitonin 0.58. Arterial blood gases on 50% FiO2 revealed a PaO2 of 43, pCO2 of 39 and a pH of 7.41. [place] virus not detected. She is seen today in consultation in the emergency department. She is currently sitting up on the stretcher. Awake and alert. Dyspneic with minimal conversation. Dyspneic with minimal exertion. Currently on 10 L high flow nasal cannula. Reevaluated today on 02/03/2023, patient is not feeling much better, continues to have shortness of breath with any activity, her O2 saturations 96% on 5 L nasal cannula patient was seen yesterday and started on diuretics for presumptive acute systolic congestive heart failure. However her repeat echocardiogram this time showed adequate LV function with ejection fraction of 50-55%. 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 Nonetheless the patient remains on diuretics, enteresto 20/26 twice a day was added and The patient on Lasix 40 mg twice a day. Surprisingly her echocardiogram today showed adequate LV function compared to previous echocardiogram. CBC is relatively normal electrocerebral normal renal profile is normal Objective - Vital Signs Vital signs: Vital Signs Temp 98 F 02/03/23 09:25 Pulse 71 02/03/23 11:50 Resp 17 02/03/23 11:50 BP 120/65 02/03/23 11:50 Pulse Ox 96 02/03/23 11:50 FiO2 30 02/01/23 17:40 Intake & Output 02/02/23 02/03/23 02/03/23 18:59 06:59 18:59 Intake Total 68.583 0 476 Balance 68.583 0 476 Weight 47 kg Intake: Intake, IV Titration 68.583 Amount Diltiazem 125 mg In 68.583 Sodium Chloride 0.9% 100 ml @ 5 MG/HR 5 mls/hr IV .Q24H [facility] Rx#:[id number] Oral 0 476 Other: Voiding Method Bedside Commode Bedside Commode # Voids 3 2 - Exam Physical Exam: Revealed an 82-year-old female in no distress on 5 L nasal cannula Head: Atraumatic normocephalic HEENT:[Neck is supple.] [No neck masses.] [No thyromegaly.] [No JVD.] Chest: Diminished breath sounds at the bases, right more so than left Cardiac Exam: [Irregular irregular Normal S1 and S2, no S3 gallop, 2/6 systolic murmur thought the precordium] Abdomen: [Soft, nontender, no megaly, no rebound, no guarding, normal bowel sounds.] Extremities: [No clubbing, no edema, no cyanosis.] Neurological Exam: [No focal neurologic deficit.] Alert and oriented 3 Psychiatric: Normal mood affect and normal mental status examination. Skin: No rashes - Labs CBC & Chem 7: 02/03/23 08:36 02/03/23 08:36 Labs: Abnormal Lab Results - Last 24 Hours (Table) 02/02/23 02/03/23 Range/Units 17:40 08:36 Sodium 131 L (137-145) mmol/L Creatinine 0.46 L (0.52-1.04) mg/dL Glucose 108 H (74-99) mg/dL Urine Appearance Cloudy H (Clear) Urine Protein Trace H (Negative) Ur Leukocyte Esterase Large H (Negative) Urine WBC >182 H (0-5) /hpf Urine Bacteria Few H (None) /hpf Hyaline Casts 4 H (0-2) /lpf Urine Mucus Many H (None) /hpf Assessment and Plan Assessment: Impression: Acute hypoxemic respiratory failure secondary to an acute exacerbation of diastolic congestive heart failure especially with a repeat echocardiogram showing improvement in LV function Recent admission for non-ST segment elevation myocardial infarction and CHF exacerbation Atrial fibrillation with varying ventricular response, anticoagulated with Eliquis Hyponatremia Ischemic cardiomyopathy Coronary artery disease with previous stent placement Left carotid artery stenosis Hypertension Hyperlipidemia Hypothyroidism Former smoker Recommendation: Continue diuretics/Lasix Continue cardiac meds as ordered by cardiology No clear-cut evidence of pneumonia Patient was placed on Zosyn yesterday empirically although no clear-cut evidence of pneumonia on the chest x-ray, I believe the elevated pro calcitonin is secondary to UTI Awaiting cultures on the urine, her urinalysis was abnormal. We'll continue to follow Time with Patient: Less than 30
[2023-02-03] MEDS: MELATONIN 5 MG TABLET PO SCH (21:36)
[2023-02-04] MEDS: LEVOTHYROXINE 25 MCG TAB PO SCH (06:15)
[2023-02-04] MEDS: PIPERACILLIN-TAZOBACTAM 3.375 GM in SODIUM CHLORIDE 0.9% 100 ML IVPB SCH ×3 (06:21→23:48)
[2023-02-04] MEDS: EZETIMIBE 10 MG TAB PO SCH (09:10)
[2023-02-04] MEDS: METOPROLOL TARTRATE 25 MG TAB PO SCH (09:10)
[2023-02-04] MEDS: SPIRONOLACTONE 25 MG TAB PO SCH (09:10)
[2023-02-04] MEDS: FAMOTIDINE 20 MG/2 ML VIAL IV SCH ×2 (09:10→20:47)
[2023-02-04] MEDS: APIXABAN 2.5 MG TABLET PO SCH ×2 (09:10→20:47)
[2023-02-04] MEDS: FUROSEMIDE 10 MG/ML 4 ML VIAL IV SCH (09:10)
[2023-02-04] MEDS: SACUBITRIL/VALSARTAN 24 MG-26 MG TABLET PO SCH ×2 (09:11→20:47)
[2023-02-04] MEDS: DAPAGLIFLOZIN PROPANEDIOL 10 MG TABLET PO SCH (09:11)
[2023-02-04 12:35] VITALS: BMI 19.7
--- NOTE | 2023-02-04 14:26 | P.PN ---
Subjective HISTORY OF PRESENT ILLNESS: Patient examined this morning at the bedside. Patient's family is present. Patient currently denies chest pain or pressure. She denies shortness of breath. She remains on IV Lasix. Telemetry reveals atrial fibrillation with a heart rate in the 70s. Vital signs are stable. PHYSICAL EXAM: VITAL SIGNS: Reviewed. GENERAL: Well-developed in no acute distress. NECK: Supple. No JVD or thyromegaly LUNGS: Respirations even and unlabored. Lungs essentially clear to auscultation bilaterally. HEART: Irregular rate and rhythm. S1 and S2 heard. EXTREMITIES: Normal range of motion. No clubbing or cyanosis. Peripheral pulses intact. No lower extremity edema ASSESSMENT: Acute on chronic heart failure with reduced ejection fraction, 35-40% Paroxysmal atrial fibrillation History of TIA History of recent pneumonia Hyperlipidemia Hypothyroidism PLAN: Discontinue IV Lasix Begin oral Lasix 40 mg daily Patient is currently stable for discharge from a cardiac standpoint Discharge per medicine We will follow on an as-needed basis. Please call with questions or concerns. Nurse practitioner note has been reviewed by physician. Signing provider agrees with the documented findings, assessment, and plan of care. Objective - Vital Signs Vital signs: Vital Signs Temp 97.9 F 02/04/23 08:00 Pulse 94 02/04/23 08:00 Resp 17 02/04/23 08:00 BP 144/62 02/04/23 08:00 Pulse Ox 94 L 02/04/23 08:00 FiO2 30 02/01/23 17:40 Intake & Output 02/03/23 02/04/23 02/04/23 18:59 06:59 18:59 Intake Total 476 476 Balance 476 476 Weight 45.8 kg 45.8 kg Intake: Oral 476 476 Other: Voiding Method Bedside Commode Bedside Commode Bedside Commode # Voids 2 3 - Labs CBC & Chem 7: 02/03/23 08:36 02/03/23 08:36 Labs: Microbiology - Last 24 Hours (Table) 02/02/23 17:40 Urine Culture - Preliminary Urine,Voided Gram Neg Bacilli
--- NOTE | 2023-02-04 14:38 | P.PN ---
Subjective This is a pleasant 82-year-old female with past medical history of GERD/Reflux, Hyperlipidemia, Hypertension, hypothyroidism, abdominal pain exacerbated by eating. Coronary artery disease status post stent Patient presents because of resp distress. Pt was on a non rebreather when she arrived with EMS/ Fire Dept. She was in this facility 12/31-is 01/03 for hypoxia, A. fib and possible CHF. Possible nonSTEMI , no cardiac cath done and she supposed to get stress test as an outpatient. she was discharged home supposed to get home oxygen. Patient continued to have more shortness of breath which was worse over the last few days without specific medication so she came to the hospital. At home currently she is not on oxygen. Chest pain. She has some dry cough. She cannot sleep flat. No GI, urinary or neurological symptoms on admission patient is afebrile blood pressure on the low side 99/66, this morning was 82/70, she was breathing at a rate of 9010 overnight and urinary morning. Slow heart rate at 64 which is low-normal On admission patient was hypoxic at 82 L/m and she was placed on the litter high flow nasal cannula Also on admission she was hypertensive 143/103. Labs showed mild leukocytosis of 12.8, rest of CBC is unremarkable INR, it is within the reference range Sodium is low 126, creatinine was 0.4. Glucose slightly elevated at 209 and lactic acid elevated 3.0. Total bilirubin 1.4, liver enzymes and determined. Troponin 0.02, 0.1. Chest elevated. ProBNP is 4250. Coronavirus not detected Chest x-ray: Bilateral lower lobe infiltrates suspicious for mild to moderate CHF and pneumonia cannot be excluded by chest x-ray. EKG shows sinus tachycardia with occasional supraventricular premature. Other EKG showed atrial fibrillation with a rate of 87 In the emergency room patient is started on Cardizem drip, IV Lasix 40 mg twice daily, pain management and nitroglycerin drip. 02/03/2023 Patient breathing is improving and oxygen requirements down to 4 L/m this morning She is able to eat and talked ECF. Prior discuss stone and a 0.57, t She remains on liquids home dose of 2.5, IV Lasix 40 mg twice daily and Zosyn. Antibiotic, stretched Augmentin Possible discharge in 24-48 hours if she keeps improving and cleared by other services team 02/04/2023 Patient sit up at the age of the bed feeling improved. She feels like close to baseline rectum baseline. She still feels little lightheaded but no dizziness or headache. She denies chest pain or dyspnea. No abdominal pain. Her oxygen level is improved and currently she is on room air, actually she's been evaluated this morning for home oxygen she does not drop her oxygen with exertion and she does not qualify for home oxygen. She continue on liquids 2.5 mg and Zosyn. Analysis was abnormal suspicious for UTI and urine culture is pending. Hemoglobin A1c is normal at 5.2%. Family O2 sats at bedside and all their questions were answered. Objective - Vital Signs Vital signs: Vital Signs Temp 97.9 F 02/04/23 08:00 Pulse 94 02/04/23 08:00 Resp 17 02/04/23 08:00 BP 144/62 02/04/23 08:00 Pulse Ox 94 L 02/04/23 08:00 FiO2 30 02/01/23 17:40 Intake & Output 02/03/23 02/04/23 02/04/23 18:59 06:59 18:59 Intake Total 476 476 Balance 476 476 Weight 45.8 kg 45.8 kg Intake: Oral 476 476 Other: Voiding Method Bedside Commode Bedside Commode Bedside Commode # Voids 2 3 - Exam GENERAL: The patient is alert and oriented x3, not in any acute distress. Well developed, well nourished. HEENT: Pupils are round and equally reacting to light. EOMI. No scleral icterus. No conjunctival pallor. Normocephalic, atraumatic. No pharyngeal erythema. No thyromegaly. CARDIOVASCULAR: S1 and S2 present. No murmurs, rubs, or gallops. -PULMONARY: Chest is clear to auscultation, no wheezing , bilateral crepitation ABDOMEN: Soft, nontender, nondistended, normoactive bowel sounds. No palpable organomegaly. MUSCULOSKELETAL: No joint swelling or deformity. EXTREMITIES: No cyanosis, clubbing, or pedal edema. NEUROLOGICAL: Gross neurological examination did not reveal any focal deficits. SKIN: No rashes. no petechiae. - Labs CBC & Chem 7: 02/03/23 08:36 02/03/23 08:36 Labs: Microbiology - Last 24 Hours (Table) 02/02/23 17:40 Urine Culture - Preliminary Urine,Voided Gram Neg Bacilli Assessment and Plan Assessment: Acute renal tract infection Acute congestive heart failure with bilateral pulmonary congestion and basal infiltrates, pneumonia cannot be excluded but less likely acute hypoxic respiratory failure Atrial fibrillation with RVR on admission Elevated troponin, possible recent non-STEMI Hyponatremia, hypervolemic Hyperglycemia, rule out diabetes mellitus Hypertension Hyperlipidemia History of coronary artery disease status post stenting Hypothyroidism History of GERD Plan: Follow-up urine culture Continue with IV Lasix Continue on blood thinner Eliquis Change antibiotics to Augmentin upon discharge Cardiology and pulmonology team CONSULT Labs and medication were reviewed.. Continue same treatment. Continue with symptomatic treatment. Resume home medication. Monitor labs and vitals. DVT and GI prophylaxis. Further recommendations as per clinical course of the patient DVT prophylaxis: eliquis GI Prophylaxis: Pepcid PT/OT: Pending Prognosis is guarded
[2023-02-04] MEDS: ACETAMINOPHEN TAB 325 MG TAB PO PRN (15:09)
--- NOTE | 2023-02-04 15:29 | P.PN ---
Subjective Progress Note Date: 02/04/23 Principal diagnosis: Shortness of breath. This is a pleasant 82-year-old female patient with a known history of paroxysmal atrial fibrillation anticoagulated with Eliquis, hypertension, hyperlipidemia, hypothyroidism, congestive heart failure. She has impaired left ventricular systolic function with ejection fraction 35-40% with global hypokinesis. She was discharged from here following a non-ST segment elevation myocardial infarction and CHF exacerbation one month ago. She presented back to the emergency room yesterday with complaints of increasing shortness of breath. It came on quite suddenly yesterday afternoon. She initially required BiPAP 10/5 and 30% FiO2 to maintain O2 saturations in the 90s. She was alternating with 15 L high flow nasal cannula. X-ray shows [id number] bilateral pleural effusions left greater than right and pulmonary vascular congestion consistent with congestive heart failure. White count 7.4. Hemoglobin 13.0. Sodium 129. Potassium 4.4. Bicarb 19. BUN 8. Creatinine 0.32. Troponins 0.175, 0.159. BNP 4250 Pro-calcitonin 0.58. Arterial blood gases on 50% FiO2 revealed a PaO2 of 43, pCO2 of 39 and a pH of 7.41. [place] virus not detected. She is seen today in consultation in the emergency department. She is currently sitting up on the stretcher. Awake and alert. Dyspneic with minimal conversation. Dyspneic with minimal exertion. Currently on 10 L high flow nasal cannula. Reevaluated today on 02/03/2023, patient is not feeling much better, continues to have shortness of breath with any activity, her O2 saturations 96% on 5 L nasal cannula patient was seen yesterday and started on diuretics for presum ptive acute systolic congestive heart failure. However her repeat echocardiogram this time showed adequate LV function with ejection fraction of 50-55%. Seen by cardiology today and felt that the patient had low ejection fraction likely a combination of tachycardia induced cardiomyopathy from unde rlying atrial fibrillation and ischemic cardiomyopathy with paroxysmal atrial fibrillation. Nonetheless the patient remains on diuretics, enteresto 20/26 twice a day was added and The patient on Lasix 40 mg twice a day. Surprisingly her echocardiogram today showed adequate LV function compared to previous echocardiogram. CBC is relatively normal electrocerebral normal renal profile is normal Progress note dated 02/04/2023. The patient is seen today in room 377. She is on room air. Urine is revealing evidence of gram-negative bacilli. Her pro-calcitonin level is elevated. She's currently on Zosyn. She is hoping to be discharged soon. She denies any shortness of breath, or difficulty breathing. Family members are in the room with the patient. No new labs today to report. Objective - Vital Signs Vital signs: Vital Signs Temp 97.9 F 02/04/23 08:00 Pulse 68 02/04/23 11:35 Resp 18 02/04/23 11:35 BP 121/57 02/04/23 11:35 Pulse Ox 96 02/04/23 11:35 FiO2 30 02/01/23 17:40 Intake & Output 02/03/23 02/04/23 02/04/23 18:59 06:59 18:59 Intake Total 476 476 Balance 476 476 Weight 45.8 kg 45.8 kg Intake: Oral 476 476 Other: Voiding Method Bedside Commode Bedside Commode Bedside Commode # Voids 2 3 - Exam No acute distress, oriented 3. Currently on room air. HEENT examination is grossly unremarkable. Mucous membranes are moist. No oral lesions. Neck supple. Full range of motion. No adenopathy thyromegaly or neck vein distention. Cardiovascular examination reveals regular rhythm rate. S1-S2 normal. No S3 or S4. No discernible murmur noted. Heart rate 68 bpm. Lungs reveal clear breath sounds. Breath sounds are equal bilaterally. No adventitious lung sounds including wheezes rhonchi or crackles. Room air saturation is 96%. Abdomen soft bowel sounds are heard. No masses or tenderness. Extremities are intact. No cyanosis clubbing or edema. Skin is without rash or lesion. Neurologic examination is brief but nonfocal. - Labs CBC & Chem 7: 02/03/23 08:36 02/03/23 08:36 Labs: Microbiology - Last 24 Hours (Table) 02/02/23 17:40 Urine Culture - Preliminary Urine,Voided Gram Neg Bacilli Assessment and Plan Assessment: Acute hypoxemic respiratory failure secondary to an acute exacerbation of diastolic CHF. Recent admission for non-ST segment elevation myocardial infarction, and CHF. Atrial fibrillation. Probable urinary tract infection, secondary to gram-negative bacilli. Hyponatremia. Ischemic cardiomyopathy. CAD with previous stent placement. Left carotid artery stenosis. History of hypertension. History of hyperlipidemia. History of hypothyroidism. Previous tobacco use. Plan: Plan dated 02/04/2023. The patient continues on Zosyn. The patient likely has a urinary tract infection secondary to gram-negative bacilli. Her pro-calcitonin level was elev ated. The patient's currently on room air. No additional recommendations are made. Labs, x-rays, and medications are reviewed. We will continue to follow the patient, and make recommendations along the way. Time with Patient: Less than 30
[2023-02-04] MEDS: MELATONIN 5 MG TABLET PO SCH (20:47)
[2023-02-05] MEDS: PIPERACILLIN-TAZOBACTAM 3.375 GM in SODIUM CHLORIDE 0.9% 100 ML IVPB SCH (06:40)
[2023-02-05] MEDS: LEVOTHYROXINE 25 MCG TAB PO SCH (06:40)
[2023-02-05] MEDS ORDERED: FUROSEMIDE 40 MG TAB PO SCH (09:00)
[2023-02-05] MEDS: FAMOTIDINE 20 MG/2 ML VIAL IV SCH (09:49)
[2023-02-05] MEDS: SPIRONOLACTONE 25 MG TAB PO SCH (09:49)
[2023-02-05] MEDS: SACUBITRIL/VALSARTAN 24 MG-26 MG TABLET PO SCH (09:49)
[2023-02-05] MEDS: APIXABAN 2.5 MG TABLET PO SCH (09:49)
[2023-02-05] MEDS: METOPROLOL TARTRATE 25 MG TAB PO SCH (09:49)
[2023-02-05] MEDS: DAPAGLIFLOZIN PROPANEDIOL 10 MG TABLET PO SCH (09:49)
[2023-02-05] MEDS: EZETIMIBE 10 MG TAB PO SCH (09:49)
[2023-02-05 10:39] VITALS: BP 123/85; PULSE 86; RESP 18; TEMP 97.7
--- NOTE | 2023-02-05 13:41 | P.PN ---
Subjective Progress Note Date: 02/05/23 Principal diagnosis: Shortness of breath. This is a pleasant 82-year-old female patient with a known history of paroxysmal atrial fibrillation anticoagulated with Eliquis, hypertension, hyperlipidemia, hypothyroidism, congestive heart failure. She has impaired left ventricular systolic function with ejection fraction 35-40% with global hypokinesis. She was discharged from here following a non-ST segment elevation myocardial infarction and CHF exacerbation one month ago. She presented back to the emergency room yesterday with complaints of increasing shortness of breath. It came on quite suddenly yesterday afternoon. She initially required BiPAP 10/5 and 30% FiO2 to maintain O2 saturations in the 90s. She was alternating with 15 L high flow nasal cannula. X-ray shows [id number] bilateral pleural effusions left greater than right and pulmonary vascular congestion consistent with congestive heart failure. White count 7.4. Hemoglobin 13.0. Sodium 129. Potassium 4.4. Bicarb 19. BUN 8. Creatinine 0.32. Troponins 0.175, 0.159. BNP 4250 Pro-calcitonin 0.58. Arterial blood gases on 50% FiO2 revealed a PaO2 of 43, pCO2 of 39 and a pH of 7.41. [place] virus not detected. She is seen today in consultation in the emergency department. She is currently sitting up on the stretcher. Awake and alert. Dyspneic with minimal conversation. Dyspneic with minimal exertion. Currently on 10 L high flow nasal cannula. Reevaluated today on 02/03/2023, patient is not feeling much better, continues to have shortness of breath with any activity, her O2 saturations 96% on 5 L nasal cannula patient was seen yesterday and started on diuretics for presum ptive acute systolic congestive heart failure. However her repeat echocardiogram this time showed adequate LV function with ejection fraction of 50-55%. Seen by cardiology today and felt that the patient had low ejection fraction likely a combination of tachycardia induced cardiomyopathy from unde rlying atrial fibrillation and ischemic cardiomyopathy with paroxysmal atrial fibrillation. Nonetheless the patient remains on diuretics, enteresto 20/26 twice a day was added and The patient on Lasix 40 mg twice a day. Surprisingly her echocardiogram today showed adequate LV function compared to previous echocardiogram. CBC is relatively normal electrocerebral normal renal profile is normal Progress note dated 02/04/2023. The patient is seen today in room 377. She is on room air. Urine is revealing evidence of gram-negative bacilli. Her pro-calcitonin level is elevated. She's currently on Zosyn. She is hoping to be discharged soon. She denies any shortness of breath, or difficulty breathing. Family members are in the room with the patient. No new labs today to report. Progress note dated 02/05/2023. The patient is seen today in room 377. She's currently on room air. She would like to be discharged as soon as possible. The patient is being treated for a Klebsiella urinary tract infection. She is currently on Zosyn. She has no complaints today. Family members at the bedside. No new labs today. Objective - Vital Signs Vital signs: Vital Signs Temp 97.7 F 02/05/23 08:00 Pulse 86 02/05/23 08:00 Resp 18 02/05/23 08:00 BP 123/85 02/05/23 08:00 Pulse Ox 96 02/05/23 08:00 FiO2 30 02/01/23 17:40 Intake & Output 02/04/23 02/05/23 02/05/23 18:59 06:59 18:59 Intake Total 476 220 418 Output Total 200 Balance 476 220 218 Weight 45.8 kg Intake: Intake, IV Titration 100 Amount Piperacillin-Tazobactam 3 100 .375 gm In Sodium Chloride 0.9% 100 ml @ 25 mls/hr IVPB Q8H [facility] Rx#: [id number] Oral 476 120 418 Output: Urine 200 Other: Voiding Method Bedside Commode Bedside Commode Bedside Commode # Voids 5 0 # Bowel Movements 0 - Exam No acute distress, oriented 3. Currently on room air. HEENT examination is grossly unremarkable. Mucous membranes are moist. No oral lesions. Neck supple. Full range of motion. No adenopathy thyromegaly or neck vein distention. Cardiovascular examination reveals regular rhythm rate. S1-S2 normal. No S3 or S4. No discernible murmur noted. Heart rate 79 bpm. Lungs reveal clear breath sounds. Breath sounds are equal bilaterally. No adventitious lung sounds including wheezes rhonchi or crackles. Room air saturation is 96%. Abdomen soft bowel sounds are heard. No masses or tenderness. Extremities are intact. No cyanosis clubbing or edema. Skin is without rash or lesion. Neurologic examination is brief but nonfocal. - Labs CBC & Chem 7: 02/03/23 08:36 02/03/23 08:36 Labs: Microbiology - Last 24 Hours (Table) 02/02/23 17:40 Urine Culture - Final Urine,Voided Klebsiella pneumoniae Assessment and Plan Assessment: Acute hypoxemic respiratory failure secondary to an acute exacerbation of diastolic CHF. Recent admission for non-ST segment elevation myocardial infarction, and CHF. Atrial fibrillation. Klebsiella pneumoniae urinary tract infection. Hyponatremia. Ischemic cardiomyopathy. CAD with previous stent placement. Left carotid artery stenosis. History of hypertension. History of hyperlipidemia. History of hypothyroidism. Previous tobacco use. Plan: Plan dated 02/04/2023. The patient continues on Zosyn. The patient likely has a urinary tract infection secondary to gram-negative bacilli. Her pro-calcitonin level was elevated. The patient's currently on room air. No additional recommendations are made. Labs, x-rays, and medications are reviewed. We will continue to follow the patient, and make recommendations along the way. Plan dated 02/05/2023. The patient is seen today in room 377. The patient continues on Zosyn. The g ena-negative bacilli in the urine was Klebsiella pneumoniae. The patient is being treated for that. Currently, she is on room air. She's not receiving any IV fluids. The patient was adamant about being discharged home. We will leave that up to the primary service. From the pulmonary standpoint, the patient is stable for discharge. Labs, x-rays, and medications are reviewed. Prognosis is certainly guarded. Time with Patient: Less than 30
--- NOTE | 2023-02-09 00:09 | P.DS ---
Providers Date of admission: 02/01/23 19:22 Attending physician: Mohinder Barker MD Consults: 02/01/23 19:22 Consult Physician Routine Consulting Provider: Jacqueline Medeiros Consult Reason/Comments: Acute dyspnea. Hypertensive urgency. Do you want consulting provider notified?: Yes Primary care physician[facility]: Final Diagnosis Acute renal tract infection with klebsiella pneumoniae Acute congestive heart failure systolic dysfunction EF 35-40%; with bilateral pulmonary congestion and basal infiltrates, pneumonia cannot be excluded but less likely Acute hypoxic respiratory failure secondary to above Paroxysmal Atrial fibrillation with RVR on admission, now rate controlled. Elevated troponin likely type 2 FL from hypoxia Hyponatremia, hypervolemic improved with IV lasix Hyperglycemia hemoglobin A1C 5.2 Carotid artery disease with left carotid stenosis Hx of TIA Hypertension Hyperlipidemia History of coronary artery disease status post stenting Hypothyroidism History of GERD Former smoker Discharge Disposition Patient is stable for discharge home. Patient has been cleared by cardiology and transitioned back to oral lasix for discharge. Patient has also been discharged on aldactone, entresto. Patient is discharged on Farxiga. Patient continues on eliquis for anticoagulation. Recommending to repeat a BMP in 2 to 3 days. Patient to see her PCP Dr. Villalta on . She also has follow up appointments made with Dr. Medeiros and Dr. Manley. Hospital Course This is a pleasant 82-year-old female with past medical history of GERD/Reflux, Hyperlipidemia, Hypertension, hypothyroidism, Coronary artery disease status post stent. Patient presents because of respiratory distress she was brought in by EMS and placed on nonrebreather en route. Patient was recently admitted last month for hypoxia, a.fib and CHF and possible NSTEMI. She was recommended to get a stress test outpatient at that time. Patient was discharged home and had supposed to get home oxygen. She has been progressively more short of breath over the last few days at home. Patient has a dry cough, and not able to sleep flat. No fever or chills, no nausea vomiting or diarrhea. Patient was hy potensive on admission BP 80s systolic. Patient had mild leukocytosis. Sodium was low at 126, glucose 209 and LA 3.0. Troponin is elevated. ProBNP 4250. Covid negative. Chest x-ray: Bilateral lower lobe infiltrates suspicious for mild to moderate CHF and pneumonia cannot be excluded by chest x-ray. Patient was admitted to the hospital with consulted placed to cardiology and pulmonary services. Patient was afib rvr started on cardizem gtt, IV lasix and nitro gtt for the pressures. Patient was weaned down to 4L of oxygen. Her symptoms are improving. Had limited echocardiogram done showing improved EF of 50-55% with severe LA dilation. Patient also had abnormal UA was on IV zosyn epirically and cultures finalized to klebsiella pneumonia. No dysuria urgency of frequency noted. Received 4 days of IV antibiotics and no further needed on discharge Patient is currently denying shortness of breath and no chest pain. She has been weaned to room air and able to ambulate. Clinically she has imiproved and cardiology has switched the patient to oral lasix. Patients lungs are clear S1 S2 auscultated abdomen is soft and nontender. Focal neurological deficit is negative. Patient will be discharged home with the above mentioned recommendations. Please see medication reconciliation for a list of current medications. Thank you for allowing us to participate in the care of this patient. The impression and plan of care has been dictated by Mildred Payne, Nurse Practitioner as directed. Dr. Cheli MD I have performed a history and physical examination and medical decision making of this patient, discussed the same with the dictator, and agree with the dictators assessment and plan as written, documented as a scribe. Based on total visit time, I have performed more than 50% of this visit. Patient Condition at Discharge: Fair Plan - Discharge Summary Discharge Rx Participant: Yes New Discharge Prescriptions: New Spironolactone [Aldactone] 25 mg PO DAILY #30 tab Dapagliflozin Propanediol [Farxiga] 10 mg PO DAILY #30 tab Furosemide [Lasix] 40 mg PO DAILY #30 tab Sacubitril/Valsartan [Entresto 24 mg-26 mg Tablet] 1 each PO BID #60 tab Famotidine [Pepcid] 20 mg PO DAILY #30 tablet Continue Metoprolol Tartrate [Lopressor] 25 mg PO DAILY Levothyroxine Sodium [Synthroid] 25 mcg PO DAILY Ezetimibe [Zetia] 10 mg PO DAILY Sodium Bicarbonate 325 mg PO DAILY LORazepam [Ativan] 0.5 mg PO HS PRN PRN Reason: Anxiety Melatonin 5 mg PO HS Apixaban [Eliquis] 2.5 mg PO BID Discontinued Furosemide [Lasix] 20 mg PO DAILY PRN PRN Reason: Edema Discharge Medication List Levothyroxine Sodium [Synthroid] 25 mcg PO DAILY 08/16/14 [History] Metoprolol Tartrate [Lopressor] 25 mg PO DAILY 08/16/14 [History] Ezetimibe [Zetia] 10 mg PO DAILY 12/01/19 [History] Sodium Bicarbonate 325 mg PO DAILY 12/23/22 [History] Apixaban [Eliquis] 2.5 mg PO BID 02/01/23 [History] LORazepam [Ativan] 0.5 mg PO HS PRN 02/01/23 [History] Melatonin 5 mg PO HS 02/01/23 [History] Dapagliflozin Propanediol [Farxiga] 10 mg PO DAILY #30 tab 02/05/23 [Rx] Famotidine [Pepcid] 20 mg PO DAILY #30 tablet 02/05/23 [Rx] Furosemide [Lasix] 40 mg PO DAILY #30 tab 02/05/23 [Rx] Sacubitril/Valsartan [Entresto 24 mg-26 mg Tablet] 1 each PO BID #60 tab 02/05/23 [Rx] Spironolactone [Aldactone] 25 mg PO DAILY #30 tab 02/05/23 [Rx] Follow up Appointment(s)/Referral(s): Jacqueline Medeiros MD [STAFF PHYSICIAN] - 02/28/23 1:30 pm Eliazar Manley MD [Medical Doctor] - 02/12/23 11:15 am Srinivas Villalta DO [Primary Care Provider] - 02/18/23 10:15 am [facility] Visiting Nurse, [NON-STAFF] - Ambulatory/Diagnostic Orders: Basic Metabolic Panel [LAB.AMB] Time Frame: 3 Days, Location: None Selected Patient Instructions/Handouts: Heart Failure (DC), Heart Healthy Diet (DC) Activity/Diet/Wound Care/Special Instructions: Weigh yourself at the same time every day if you have a weight gain of greater than 3 lbs in 3 days of 5-7 lbs in 1 week notify your provider Continue to follow heart healthy diet Discharge Disposition: HOME WITH HOME HEALTH SERVICES
== END 2023-02-05 15:51 | disposition home health service (06) | DRG 280 ==
LOC: EC 17:20 → 3SCARD 19:22
PROVIDERS: ADMIT Internal Medicine; ATTEND Internal Medicine
PROC: 5A09357 Assistance with Respiratory Ventilation, Less than 24 Consecutive Hours, Continuous Positive Airway Pressure (ICD-10-PCS; principal; 2023-02-01)
DX: I11.0 Hypertensive heart disease with heart failure (principal); I21.A1 Myocardial infarction type 2; I50.23 Acute on chronic systolic (congestive) heart failure; J15.0 Pneumonia due to Klebsiella pneumoniae; J96.01 Acute respiratory failure with hypoxia; E87.1 Hypo-osmolality and hyponatremia; J44.0 Chronic obstructive pulmonary disease with (acute) lower respiratory infection; N39.0 Urinary tract infection, site not specified; I16.0 Hypertensive urgency; E03.9 Hypothyroidism, unspecified; E78.5 Hyperlipidemia, unspecified; I25.5 Ischemic cardiomyopathy; I48.0 Paroxysmal atrial fibrillation; R73.9 Hyperglycemia, unspecified; I65.22 Occlusion and stenosis of left carotid artery; I25.10 Atherosclerotic heart disease of native coronary artery without angina pectoris; Z66 Do not resuscitate; Z20.822 Contact with and (suspected) exposure to COVID-19; I25.2 Old myocardial infarction; Z79.01 Long term (current) use of anticoagulants; Z79.890 Hormone replacement therapy; Z79.899 Other long term (current) drug therapy; Z86.73 Personal history of transient ischemic attack (TIA), and cerebral infarction without residual deficits; Z87.01 Personal history of pneumonia (recurrent); Z87.891 Personal history of nicotine dependence; Z95.5 Presence of coronary angioplasty implant and graft; Z88.8 Allergy status to other drugs, medicaments and biological substances
CPT/HCPCS: 36415; 36600; 71045; 80048; 80053; 81001; 82805; 83036; 83605; 83880; 83930; 84145; 84443; 84484; 85025; 85610; 85730; 87077; 87086; 87186; 87635; 93005; 93308; 94640; 94660; 94760; 96365; 96366; 96368; 96375; 96376; 99291